=== PATIENT | female | born 1940 | race Caucasian/White ===

== ENCOUNTER 2017-11-11 21:28 | Inpatient (IN) | payer MEDICARE, BC ==
[~2017-11-11] VITALS: Ht 154.9 cm; Wt 60.3 kg
[2017-11-11] MEDS ORDERED: Morphine Sulfate 4mg/ml Inj IVP ONE (21:30)
[2017-11-11] MEDS ORDERED: Morphine Sulfate 4mg/ml Inj ONE (22:41)
[2017-11-11 22:47] LABS: BASOPHILS % (AUTO) 1.1 % (0.0-2.0); HEMATOCRIT 28.8 % (37.0-47.0); HEMOGLOBIN 9.3 G/DL (12.0-16.0); LYMPHOCYTES % (AUTO) 8.5 % (20.0-45.0); MEAN CORPUSCULAR VOLUME 99 FL (80-99); MONOCYTES % (AUTO) 9.1 % (1.0-10.0); NEUTROPHILS % (AUTO) 78.3 % (45.0-75.0); PLATELET COUNT 468 K/UL (150-450); RED CELL DISTRIBUTION WIDTH 15.4 % (11.6-14.8); WHITE BLOOD COUNT 11.5 K/UL (4.8-10.8)
[2017-11-11 22:48] LABS: ANION GAP 10 mmol/L (5-15); BLOOD UREA NITROGEN 25 mg/dL (7-18); CALCIUM 7.6 MG/DL (8.5-10.1); CARBON DIOXIDE 26 MMOL/L (21-32); CHLORIDE 100 MMOL/L (98-107); CREATININE 2.6 MG/DL (0.55-1.30); POTASSIUM 3.7 MMOL/L (3.5-5.1); SODIUM 136 MMOL/L (136-145)
[2017-11-11] MEDS ORDERED: TYLENOL EXTRA500 MG ORAL (22:48)
[2017-11-11] MEDS ORDERED: AMITRIPTYLINE100 MG ORAL (22:48)
[2017-11-11] MEDS ORDERED: AMLODIPINE BES2.5 MG ORAL (22:48)
[2017-11-11] MEDS ORDERED: ATORVASTATIN CA20 MG ORAL (22:49)
[2017-11-11] MEDS ORDERED: BUPROPION XL150 MG ORAL (22:49)
[2017-11-11] MEDS ORDERED: LEVOTHYROXINE125 MCG ORAL (22:49)
[2017-11-11] MEDS ORDERED: DIOVAN320 MG ORAL (22:49)
[2017-11-11] MEDS ORDERED: B COMPLEX WITH1 EAC2 ORAL (22:49)
[2017-11-11] MEDS ORDERED: ZOLPIDEM TARTRAT5 MG ORAL (22:49)
[2017-11-11] MEDS ORDERED: HUMALOG100 UNIT/4 SUBQ (22:49)
[2017-11-11] MEDS ORDERED: METOPROLOL TART25 MG ORAL (22:49)
[2017-11-11] MEDS ORDERED: MEGACE40 MG PO (22:49)
[2017-11-11] MEDS ORDERED: PRAVASTATIN SOD20 M1 ORAL (22:49)
[2017-11-11] MEDS ORDERED: TRAZODONE HCL150 MG ORAL (22:49)
[2017-11-11] MEDS ORDERED: PANTOPRAZOLE SO40 MG ORAL (22:49)
[2017-11-11] MEDS ORDERED: ZEMPLAR2 MCG ORAL (22:49)
[2017-11-11] MEDS ORDERED: RENAGEL800 MG ORAL (22:49)
[2017-11-11] MEDS ORDERED: CALCIUM ACETAT667 M1 PO (22:49)
[2017-11-11 23:00] LABS: ALANINE AMINOTRANSFERASE 8 U/L (12-78); ALBUMIN 2.3 G/DL (3.4-5.0); ALBUMIN/GLOBULIN RATIO 0.7 (1.0-2.7); ALKALINE PHOSPHATASE 118 U/L (46-116); ASPARTATE AMINO TRANSFERASE 26 U/L (15-37); BILIRUBIN,TOTAL 0.5 MG/DL (0.2-1.0); CREATINE KINASE 52 U/L (26-308)
[2017-11-12 00:53] VITALS: BP 112/52
--- NOTE | 2017-11-12 01:00 | Consultation ---
DATE OF CONSULTATION: 11/11/2017 CARDIOLOGY CONSULTATION CONSULTING PHYSICIAN: Philip Blair M.D. REQUESTING PHYSICIAN: Dakota Buckner M.D. REASON FOR CONSULTATION: Chest pain, palpitations and ventricular ectopy. HISTORY OF PRESENT ILLNESS: This is a 77-year-old white female, who has end-stage renal disease and is on hemodialysis three times a week. She is presently convalescing at an acute rehab ctr following surgery for a hip fracture sustained with a mechanical fall. She was transported to the emergency room from dialysis today after having some chest pain and palpitations with ventricular ectopy noted towards the end of her dialysis session. She was able to complete this session, approximately 2 liters of fluid was taken off during this hemodialysis and ultrafiltration session; that is somewhat more than her usual amount and she feels that is why her blood pressure is low. The patient also notes some relatively lower range of blood pressure over the past few months resulting in this slow discontinuation of some of her antihypertensive medications. Approximately 2 weeks ago, her metoprolol was discontinued. She is not clear whether she has had more palpitations since that time. The patient notes that her kidney failure has been progressive over almost over 25 years. 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 Her kidneys did suffer, never fully recovered. 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 She has a right chest wall PermCath and has been on dialysis for about a year now. She does have an AV fistula, but it has not matured and has not been used yet. PAST MEDICAL HISTORY: 1. Hypertension. 2. End-stage renal disease. 3. Depression. 4. Hypothyroidism. 5. Peptic ulcer disease. 6. Hyperlipidemia. ALLERGIES: Levaquin, , Naprosyn and all other nonsteroidal drugs and Lyrica. MEDICATIONS: Prior to admission are reviewed and reconciled. FAMILY HISTORY: Noncontributory. SOCIAL HISTORY: Negative for smoking, alcohol, or substance abuse. REVIEW OF SYSTEMS: A 10-point review of systems performed. All systems negative other than noted above. According to the patient's primary care physician; however, we were told that her troponin level is baseline at 0.4. PHYSICAL EXAMINATION: GENERAL: The patient is lying flat in no acute distress. VITAL SIGNS: Blood pressure 94/60, pulse 92, respiratory rate 18, and afebrile. HEENT: Normocephalic and atraumatic. Conjunctivae pink. Sclerae are anicteric. Oropharynx clear. Mucous membranes dry. NECK: Supple. Jugular venous pressure normal. Neck veins flat. Carotid upstrokes without delay. No thyromegaly. LUNGS: Clear. CARDIAC: Regular rhythm and rate. Normal S1 and S2 with a fourth heart sound. No chest wall tenderness. BREASTS: Without masses. ABDOMEN: Soft and nontender. EXTREMITIES: Good pulses. No edema. The right subclavian PermCath site is clean and dry. There is a palpable bruit over the left upper extremity AV fistula. LABORATORY AND DIAGNOSTIC DATA: EKG reveals sinus rhythm, possible septal infarction of indeterminate age and frequent premature ventricular contractions. White count 11.5 and hemoglobin 9.3. Potassium 3.7, BUN 25, and creatinine 2.6. Troponin is 0.061. Albumin is 2.3. Pro-natriuretic peptide is 8900. IMPRESSION: 1. Possible acute coronary syndrome. 2. Ventricular ectopy/arrhythmias. 3. Recent discontinuation of beta-emile, consider possible withdrawal symptoms. 4. End-stage renal disease, on hemodialysis. 5. Hypertensive heart disease, presently with low range of blood pressure, resolved. 6. Zkjcdhuz-bx-xzxefj protein-calorie malnutrition. 7. Acute and chronic diastolic congestive heart failure. PLAN: 1. Cardiac monitoring. 2. Antiplatelet therapy. 3. Fluid challenge with caution for persistent hypotension. 4. Restart low dose beta-emile. 5. DVT prophylaxis. 6. Echocardiogram. 7. Continue statin therapy and check lipid panel. 8. We will follow and make further recommendations based on clinical course. Philip Blair M.D. DR: SELINA JOB#: [id number] CC: CURTIS
[2017-11-12] MEDS: traMADol 50mg tab ORAL PRN ×3 (04:53→18:38)
--- NOTE | 2017-11-12 04:55 | Emergency Room Report ---
History of Present Illness General Chief Complaint: Chest Pain Source: Patient, EMS Present Illness HPI The patient presents via EMS. During dialysis today she was having chest pain. She was also tachycardic at that time and dropped her blood pressure to 80 systolic. According to her private physician she has quite a bit of calcified plaques however not significant occlusion in her coronary arteries. Paramedics performed an EKG that didn't show STEMI. The patient refused to take aspirin in the field. The pain resolved before paramedics arrived. She had frequent PVCs according to them. When she had dialysis 2 days ago she also had dry rapid heartbeat and low blood pressure. Her doctor states that her blood pressure dropped to 80 systolic then also. She didn't have chest pain at that time. The patient denies any fevers chills nausea vomiting diarrhea, melena. She rarely makes urine and denies dysuria. The chest pain today was pressure and rated 7/10. Her private physician states that her troponins usually are 0.4. There is a history of autonomic instability. H/O pancreatic cancer. Allergies: Coded Allergies: ESZOPICLONE (Verified Allergy, Unknown, 11/11/17) LEVOFLOXACIN (Verified Allergy, Unknown, 11/11/17) NAPROXEN (Verified Allergy, Unknown, 11/11/17) NSAIDS (NON-STEROIDAL ANTI-INFLAMMA (Verified Allergy, Unknown, 11/11/17) PREGABALIN (Verified Allergy, Unknown, 11/11/17) Patient History Past Medical History: see triage record Past Surgical History: other - shunts and vascath Social History: Denies: smoking, alcohol use, drug use Social History Narrative lives by herself Now: No Reviewed Nursing Documentation: PMH: Agreed; PSxH: Agreed Nursing Documentation-PMH Hx Hypertension: Yes - hypothyroid,othrostatic hypotension Hx Diabetes: Yes - neoplasm of pancreas, DM type II Hx Dialysis: Yes - glomerulopathy, stage 5 kidney disease Review of Systems All Other Systems: negative except mentioned in HPI Physical Exam Vital Signs Date Time Temp Pulse Resp B/P (MAP) Pulse Ox O2 Delivery O2 Flow Rate FiO2 11/11/17 21:16 97.2 96 16 112/52 97 Room Air 97.2 Sp02 EP Interpretation: reviewed, normal General Appearance: no apparent distress, GCS 15, Chronically Ill Head: normocephalic Eyes: bilateral eye normal inspection, bilateral eye PERRL ENT: moist mucus membranes Neck: supple Respiratory: lungs clear, normal breath sounds, other - vascath R Cardiovascular #1: regular rate, rhythm, other - some irregular beats Cardiovascular #2: 2+ radial (R) Gastrointestinal: normal inspection, normal bowel sounds, non tender, no mass, non-distended Musculoskeletal: back normal, gait/station normal, normal range of motion Neurologic: alert, oriented x3, grossly normal Psychiatric: mood/affect normal Skin: warm/dry, other - sallo Medical Decision Making Diagnostic Impression: Primary Impression: Chest pain Qualified Codes: R07.9 - Chest pain, unspecified Additional Impressions: End stage renal disease on dialysis Frequent PVCs Elevated troponin Anemia Qualified Codes: N18.6 - End stage renal disease; D63.1 - Anemia in chronic kidney disease; Z99.2 - Dependence on renal dialysis ER Course This dialysis patient presents with hypotension, chest pain and ectopy during dialysis. Differential includes acute myocardial infarction, acute coronary syndrome, electrolyte abnormality, pulmonary embolus, hypotension related chest pain amongst others. There are no infective symptoms at this time. Evaluation will be with EKG, chest x-ray and labs. The patient will be treated with morphine and also aspirin. EKG shows sinus rhythm with frequent PVCs without acute injury. Chest x-ray shows right-sided effusion which is small right permacath and no evidence of congestive failure. Labs are significant for elevated troponin, anemia and chronic renal disease. The patient is improved after the morphine. She was evaluated by her private physician in the emergency department. Dr. Blair came to evaluate the patient in the ED. The patient is admitted for cardiac observation and repeated troponins. Laboratory Tests Test 11/11/17 21:40 White Blood Count 11.5 K/UL (4.8-10.8) H Red Blood Count 2.90 M/UL (4.20-5.40) L Hemoglobin 9.3 G/DL (12.0-16.0) L Hematocrit 28.8 % (37.0-47.0) L Mean Corpuscular Volume 99 FL (80-99) Mean Corpuscular Hemoglobin 32.3 PG (27.0-31.0) H Mean Corpuscular Hemoglobin Concent 32.5 G/DL (32.0-36.0) Red Cell Distribution Width 15.4 % (11.6-14.8) H Platelet Count 468 K/UL (150-450) H Mean Platelet Volume 5.9 FL (6.5-10.1) L Neutrophils (%) (Auto) 78.3 % (45.0-75.0) H Lymphocytes (%) (Auto) 8.5 % (20.0-45.0) L Monocytes (%) (Auto) 9.1 % (1.0-10.0) Eosinophils (%) (Auto) 3.0 % (0.0-3.0) Basophils (%) (Auto) 1.1 % (0.0-2.0) Prothrombin Time 10.7 SEC (9.30-11.50) Prothrombin Time INR 1.0 (0.9-1.1) PTT 28 SEC (23-33) Sodium Level 136 MMOL/L (136-145) Potassium Level 3.7 MMOL/L (3.5-5.1) Chloride Level 100 MMOL/L (98-107) Carbon Dioxide Level 26 MMOL/L (21-32) Anion Gap 10 mmol/L (5-15) Blood Urea Nitrogen 25 mg/dL (7-18) H Creatinine 2.6 MG/DL (0.55-1.30) H Estimate Glomerular Filtration Rate mL/min (>60) Glucose Level 126 MG/DL (74-106) H Calcium Level 7.6 MG/DL (8.5-10.1) L Total Bilirubin 0.5 MG/DL (0.2-1.0) Aspartate Amino Transferase (AST) 26 U/L (15-37) Alanine Aminotransferase (ALT) 8 U/L (12-78) L Alkaline Phosphatase 118 U/L (46-116) H Total Creatine Kinase 52 U/L (26-308) Troponin I 0.061 ng/mL (0.000-0.056) Pro-B-Type Natriuretic Peptide 8903 pg/mL (0-125) H Total Protein 5.7 G/DL (6.4-8.2) L Albumin 2.3 G/DL (3.4-5.0) L Globulin 3.4 g/dL Albumin/Globulin Ratio 0.7 (1.0-2.7) L EKG Diagnostic Results Rate: normal Rhythm: NSR ST Segments: no acute changes ASA given to the pt in ED: Yes Rhythm Strip Diag. Results EP Interpretation: yes Rhythm: NSR, other - rate 95 frequent PVCs Chest X-Ray Diagnostic Results Chest X-Ray Diagnostic Results : Chest X-Ray Ordered: Yes # of Views/Limited/Complete: 1 View Indication: Chest Pain EP Interpretation: Yes Interpretation: no consolidation, no pneumothorax, other - vascath and R effusion = small Impression: Other Electronically Signed by: Electronically signed by Philip Jara MD Last Vital Signs Date Time Temp Pulse Resp B/P (MAP) Pulse Ox O2 Delivery O2 Flow Rate FiO2 11/12/17 01:00 82 11/11/17 22:19 16 Room Air 11/11/17 21:16 97.2 112/52 97 97.2 Status: improved Disposition: ADMITTED INPATIENT Condition: Serious Referrals: NON PHYSICIAN (PCP) Philip Jara M.D. November 12, 2017 04:55
[2017-11-12 06:09] LABS: BASOPHILS % (AUTO) 1.7 % (0.0-2.0); EOSINOPHILS % (AUTO) 3.8 % (0.0-3.0); HEMATOCRIT 27.3 % (37.0-47.0); HEMOGLOBIN 9.6 G/DL (12.0-16.0); LYMPHOCYTES % (AUTO) 6.8 % (20.0-45.0); MEAN CORPUSCULAR VOLUME 100 FL (80-99); NEUTROPHILS % (AUTO) 75.8 % (45.0-75.0); PLATELET COUNT 482 K/UL (150-450); RED BLOOD COUNT 2.74 M/UL (4.20-5.40); RED CELL DISTRIBUTION WIDTH 15.2 % (11.6-14.8); WHITE BLOOD COUNT 11.6 K/UL (4.8-10.8)
[2017-11-12] MEDS ORDERED: BuPROPion XL 150mg tab ORAL SCH (06:15)
[2017-11-12] MEDS ORDERED: Acetaminophen 500mg (ES) tab ORAL PRN (06:15)
[2017-11-12] MEDS ORDERED: Zolpidem 5mg tab ORAL PRN (06:15)
[2017-11-12] MEDS ORDERED: Levothyroxine 125mcg tab ORAL SCH ×2 (06:30→09:00)
[2017-11-12 06:35] LABS: ALANINE AMINOTRANSFERASE 14 U/L (12-78); ALBUMIN 2.4 G/DL (3.4-5.0); ALBUMIN/GLOBULIN RATIO 0.7 (1.0-2.7); ALKALINE PHOSPHATASE 125 U/L (46-116); ANION GAP 9 mmol/L (5-15); ASPARTATE AMINO TRANSFERASE 21 U/L (15-37); BILIRUBIN,TOTAL 0.5 MG/DL (0.2-1.0); BLOOD UREA NITROGEN 30 mg/dL (7-18); CALCIUM 7.6 MG/DL (8.5-10.1); CARBON DIOXIDE 27 MMOL/L (21-32); CHLORIDE 100 MMOL/L (98-107); CHOLESTEROL 98 MG/DL (< 200); CREATININE 3.1 MG/DL (0.55-1.30); HDL CHOLESTEROL 47 MG/DL (40-60); POTASSIUM 3.8 MMOL/L (3.5-5.1); SODIUM 136 MMOL/L (136-145); TRIGLYCERIDES 80 MG/DL (30-150)
[2017-11-12] MEDS ORDERED: Metoprolol 25mg tab ORAL SCH (09:00)
[2017-11-12] MEDS: Aspirin EC 81mg tab ORAL SCH (09:19)
[2017-11-12] MEDS: Renagel 400mg cap ORAL SCH ×3 (09:19→17:49)
[2017-11-12] MEDS: Calcium Acetate 667mg Tab ORAL SCH (09:19)
[2017-11-12] MEDS: Metoprolol Tartrate 12.5mg TAB ORAL SCH ×2 (09:19→20:49)
[2017-11-12] MEDS: Heparin 5000 units/ml inj SUBQ SCH ×2 (09:20→20:51)
--- NOTE | 2017-11-12 10:03 | Diagnostic Imaging Report ---
Indication: Dyspnea Comparison: None A single view chest radiograph was obtained. Findings: Surgical clips noted in the left axillary region. The heart is normal in size. The aorta is ectatic. Right permacath noted. Lungs are clear. Bones are moderately osteopenic. Moderate to severe degenerative arthrosis of both shoulders noted. IMPRESSION: No acute disease
[2017-11-12] MEDS: NovoLOG Insulin Flexpen SUBQ SCH ×3 (13:38→20:55)
--- NOTE | 2017-11-12 16:30 | History and Physical Report ---
DATE OF ADMISSION: 11/11/2017 HISTORY OF PRESENT ILLNESS: The patient is a 77-year-old female, who is presently a resident at an acute rehabilitation facility in [place] after having had surgery for hip fracture. She is two weeks postop and is undergoing physical therapy and rehabilitation. The patient is also a dialysis patient and yesterday after dialysis she had what she claims a panic attack. She felt that her pressure was low and she had PVCs. She was transferred to the [facility] for subsequent management and care. Overnight she has had workup which was negative. Hemoglobin is 9.6, white count 11,000, platelet count is normal. Her chemistries are notable for troponin 0.06, and 0.14. ProBNP is 8903. Creatinine 3.1. Coags are negative. Imaging studies are also been negative. HOME MEDICATIONS: Includes Wellbutrin, Elavil, Lipitor, trazodone, insulin sliding scale, Protonix, Lopressor, aspirin, amlodipine, PhosLo, Megace, Synthroid, Renagel, Tylenol, and Ambien as well as Ultram. ALLERGIES: To multiple medications including Levaquin, Naprosyn, NSAIDS, pregabalin, eszopiclone. REVIEW OF SYSTEMS: The patient denies any headaches, hematemesis, melena, hematochezia, or weight loss. PHYSICAL EXAMINATION: GENERAL: Reveals a 77-year-old female. HEENT: Unremarkable. CHEST: Clear breath sounds bilaterally. ABDOMEN: Soft. EXTREMITIES: There is no edema. NEUROLOGIC: Nonfocal. LABORATORY DATA: Laboratory testing discussed above notable for creatinine of 3.1, troponin 0.06. Albumin of 2.4. Normal CBC except for hemoglobin 9.6 and white count 11.6. IMPRESSION: 1. Status post recent open reduction and internal fixation for hip fracture. 2. End-stage renal disease on dialysis. 3. Cardiac arrhythmias. 4. Diabetes mellitus. 5. Malnutrition. DISCUSSION: Continue cardiac monitoring. Continue antiplatelet therapy. She may need extra fluids, will resume low-dose beta emile. We will follow carefully. Await cardiac followup. May discharge back to facility if Cardiology clears the patient. Dakota Buckner M.D. DR: Ricky JOB#: [id number] CC:
--- NOTE | 2017-11-12 16:35 | Cardiology Report ---
APPROVED REPORT EXAM: Two-dimensional and M-mode echocardiogram with Doppler and color Doppler. INDICATION Acute UT M-Mode DIMENSIONS IVSd1.0 (0.7-1.1cm)Left Atrium (MM)4.5 (1.6-4.0cm) LVDd4.8 (3.5-5.6cm)Aortic Root3.7 (2.0-3.7cm) PWd1.9 (0.7-1.1cm)Aortic Cusp Exc.1.5 (1.5-2.0cm) IVSs1.3 cm LVDs2.5 (2.5-4.0cm) PWs2.3 cm Normal left ventricular chamber size, hyperdynamic systolic function and wall motion. Left ventricular ejection fraction estimated to be 70-75 %. Moderate left ventricular hypertrophy by 2-D. No evidence of pericardial effusion. Left and right atrial sizes at upper limits of normal. Right ventricular chamber size is within normal limits. Moderate focal aortic valve sclerosis with mildly reduced cusp excursion. Heavily calcified anterior mitral valve leaflet tip with normal excursion. Significant mitral annulus and aortic root calcification. Pulmonic valve not well visualized. Normal tricuspid valve structure. IVC at normal size with physiologic collapse. A color flow and spectral Doppler study was performed and revealed: Trace aortic regurgitation. Peak aortic valve gradient of 20 mm Hg and a mean of 12 mmHg. Aortic valve area 1.4 cm2 calculated by continuity equation suggestive of mild aortic stenosis.. Mild mitral regurgitation. Mitral diastolic velocities suggest reduced left ventricular relaxation c/w mild LV diastolic dysfunction (Grade I). Mild tricuspid regurgitation. Tricuspid systolic velocities suggests peak right ventricular systolic pressure of 38 mmHg, consistent with mild pulmonary hypertension. Pulmonic regurgitation present.
--- NOTE | 2017-11-12 16:45 | Cardiology Report ---
APPROVED REPORT EKG Measurement Heart [id number] Sinus rhythm with frequent premature ventricular complexes Cannot rule out Anterior infarct, age undetermined Prolonged QT Abnormal ECG
[2017-11-12 20:00] VITALS: BP 114/63
[2017-11-12] MEDS: BuPROPion XL 150mg tab ORAL SCH (20:49)
[2017-11-12] MEDS: Zolpidem 5mg tab ORAL PRN (20:51)
[2017-11-12] MEDS: TraZODone 50mg tab ORAL SCH (20:55)
[2017-11-12] MEDS ORDERED: Lexiscan 0.4mg/5ml syringe IV ONE (22:30)
--- NOTE | 2017-11-12 23:00 | Consultation ---
DATE OF CONSULTATION: 11/12/2017 CONSULTING PHYSICIAN: Albino Andrews M.D. REFERRING PHYSICIAN: Dakota Buckner M.D. REASON FOR CONSULTATION: 1. End-stage renal disease, on hemodialysis, Saturday, Saturday, and Saturday. 2. Hypotension. HISTORY OF PRESENT ILLNESS: The patient is a pleasant 77-year-old white female, who undergoes hemodialysis three times per week every Saturday, Saturday, and Saturday. She recently had a hip fracture repaired. The patient was sent to the emergency room yesterday after her hemodialysis session, which was cut short by 30 minutes due to hypotension, tachycardia, and chest pain. Cardiology was consulted and Dr. Philip Blair is evaluating the patient. The patient is feeling much better and chest pain has resolved. PAST MEDICAL HISTORY: 1. Hypertension. 2. End-stage renal disease, on hemodialysis. 3. Depression. 4. Hypothyroidism. 5. Peptic ulcer disease. 6. Hyperlipidemia. ALLERGIES: 1. Levaquin. 2. Naprosyn. 3. Lyrica. FAMILY HISTORY: Positive for hypertension. SOCIAL HISTORY: No current tobacco, alcohol, or illicit drug use. REVIEW OF SYSTEMS: NEUROLOGIC: The patient denies headache, change in vision, syncope, or presyncopal episodes. CARDIOVASCULAR: The patient was having chest pain and palpitations. PULMONARY: No difficulty breathing or productive cough or sputum. GASTROINTESTINAL/GENITOURINARY: No change in urinary or bowel habits. No nausea, vomiting, or diarrhea. ENDOCRINOLOGY: No night sweats, fevers, or chills. MUSCULOSKELETAL: The patient is feeling weak, tired, and fatigue. PHYSICAL EXAMINATION: GENERAL: The patient is awake, not otherwise in distress. VITAL SIGNS: Blood pressure 112/52, pulse 84, and temperature 97.2 degrees. HEENT: Extraocular muscles intact. No lymphadenopathy. Oropharyngeal mucosa appears dry. CARDIOVASCULAR: S1 and S2. No rubs or gallops. Regular rate. PULMONARY: Clear to auscultation bilaterally. No rales, rhonchi, or wheezes. ABDOMINAL: Nondistended and nontender. EXTREMITIES: No edema noted. LABORATORY DATA: Laboratories dated 11/12/2017, hemoglobin 9.6, white cell count 11.6, and platelet count 482. Sodium 136, potassium 3.8, creatinine 3.1, and bicarbonate 27. ASSESSMENT AND PLAN: 1. End-stage renal disease, on hemodialysis. Electrolytes and blood pressure currently stable. The patient will be continued on her regular Saturday, Saturday and Saturday schedule. The patient to undergo three hours of hemodialysis tomorrow with approximately 1.2 liters of ultrafiltration to avoid hypotension. 2. Acute coronary syndrome/chest pain. At this time, Cardiology evaluating ruling out patient for myocardial infarction, defer to their expertise. 3. Hypotension. Adjust medications as deemed appropriate, p.r.n. fluid bolus, continue antihypertensive medications as long as the patient is hemodynamically stable. 4. Anemia of chronic kidney disease. The patient to receive Epogen with hemodialysis for hemoglobin goal of 10. Albino Andrews MD DR: EDD JOB#: [id number] CC: CURTIS
[2017-11-13] VITALS: BP 113/65
--- NOTE | 2017-11-13 01:45 | Progress Note ---
DATE: 11/12/2017 CARDIOLOGY PROGRESS NOTE SUBJECTIVE: The patient has no chest pain. Less shortness of breath. No palpitations. The case was discussed with her primary physician by telephone, who suggests that the patient has had several months of progressive decline and episodes of chest pain in the past, but no recent ischemia "workup." OBJECTIVE: VITAL SIGNS: Blood pressure 114/63, pulse 76, respiratory rate 18. NECK: Supple. LUNGS: Clear. CARDIAC: Regular rhythm and rate. Normal S1, S2 with a fourth heart sound. ABDOMEN: Soft and nontender. EXTREMITIES: No edema. SKIN: Chest wall catheter site clean and dry. Palpable bruit over left upper extremity. LABORATORY AND DIAGNOSTIC DATA: Echocardiogram revealed normal ejection fraction, mild aortic valve stenosis and diastolic dysfunction, PA pressure 38, mild pulmonary hypertension. Troponin increased to 0.148. EKG revealed sinus rhythm, frequent PVCs, possible anterior infarction of indeterminate age, and prolonged QT. IMPRESSION: 1. Anginal syndrome and possible [id number] myocardial infarction. 2. End-stage renal disease, on hemodialysis. 3. History of ORIF of hip. 4. Nonsustained ventricular ectopy. 5. Acute on chronic diastolic congestive heart failure. PLAN: 1. Antiplatelet and anti-lipid therapy. 2. Beta-blockade. 3. Myocardial perfusion scan with pharmacologic stress. 4. Hemodialysis with ultrafiltration for volume management. 5. Titrate beta-emile dosing. Philip Blair M.D. DR: Nabeel JOB#: [id number] CC:
[2017-11-13 04:00] VITALS: BP 119/68
[2017-11-13] MEDS: NovoLOG Insulin Flexpen SUBQ SCH ×4 (06:25→21:00)
[2017-11-13] MEDS: Renagel 400mg cap ORAL SCH ×3 (06:25→16:43)
[2017-11-13] MEDS ORDERED: Levothyroxine 125mcg tab ORAL SCH (06:30)
[2017-11-13 08:00] VITALS: BP 116/61
[2017-11-13] MEDS: Aspirin EC 81mg tab ORAL SCH (08:31)
[2017-11-13] MEDS: Calcium Acetate 667mg Tab ORAL SCH (08:31)
--- NOTE | 2017-11-13 08:32 | Pulmonology Progress Note ---
Assessment/Plan Assessment/Plan 1. Status post recent open reduction and internal fixation for hip fracture. 2. End-stage renal disease on dialysis. 3. Cardiac arrhythmias. 4. Diabetes mellitus. 5. Malnutrition. DISCUSSION: Continue cardiac monitoring. Continue antiplatelet therapy. On low-dose beta emile. Await cardiac followup and stress test HD today Discussed with renal and cardiology Subjective Interval Events: Better; for stres test today Constitutional: Reports: no symptoms HEENT: Repors: no symptoms Respiratory: Reports: no symptoms Cardiovascular: Reports: no symptoms Gastrointestinal/Abdominal: Reports: no symptoms Allergies: Coded Allergies: ESZOPICLONE (Verified Allergy, Unknown, 11/11/17) LEVOFLOXACIN (Verified Allergy, Unknown, 11/11/17) NAPROXEN (Verified Allergy, Unknown, 11/11/17) NSAIDS (NON-STEROIDAL ANTI-INFLAMMA (Verified Allergy, Unknown, 11/11/17) PREGABALIN (Verified Allergy, Unknown, 11/11/17) Objective Last 24 Hour Vital Signs Date Time Temp Pulse Resp B/P (MAP) Pulse Ox O2 Delivery O2 Flow Rate FiO2 11/13/17 04:00 97.1 74 18 119/68 97 Room Air 97.1 11/13/17 04:00 74 11/13/17 00:00 97.2 72 16 113/65 96 Room Air 97.2 11/13/17 00:00 72 11/12/17 20:49 76 114/63 11/12/17 20:00 97.6 76 18 114/63 97 Room Air 97.6 11/12/17 20:00 75 11/12/17 16:00 74 11/12/17 12:08 97.2 11/12/17 12:00 77 11/12/17 11:09 97.2 11/12/17 10:59 97.2 11/12/17 09:19 84 112/52 11/12/17 09:19 84 112/52 Intake and Output 11/12/17 11/13/17 19:00 07:00 Intake Total 480 ml 200 ml Balance 480 ml 200 ml Intake Oral 480 ml 200 ml # Voids 1 # Bowel Movements 1 General Appearance: no acute distress HEENT: normocephalic Respiratory/Chest: chest wall non-tender, lungs clear Cardiovascular: normal peripheral pulses, normal rate Laboratory Tests 11/13/17 07:50: Sodium Level [Pending], Potassium Level [Pending], Chloride Level [Pending], Carbon Dioxide Level [Pending], Blood Urea Nitrogen [Pending], Creatinine [ Pending], Estimat Glomerular Filtration Rate [Pending], Glucose Level [Pending] , Calcium Level [Pending], Troponin I [Pending] Current Medications Medications (Trade) Dose Ordered Sig/Frances Route PRN Reason Start Time Stop Time Status Last Admin Dose Admin Acetaminophen (Tylenol) 650 mg Q4H PRN ORAL Mild Pain/Temp > 100.5 11/12/17 00:00 12/12/17 00:00 Acetaminophen (Tylenol) 1,000 mg Q6H PRN ORAL Mild Pain/Temp > 100.5 11/12/17 06:15 12/12/17 06:14 Amlodipine Besylate (Norvasc) 2.5 mg DAILY ORAL 11/12/17 09:00 12/12/17 08:59 11/12/17 09:19 Aspirin (Ecotrin) 81 mg DAILY ORAL 11/12/17 09:00 12/12/17 08:59 11/12/17 09:19 Atorvastatin Calcium (Lipitor) 10 mg BEDTIME ORAL 11/12/17 21:00 12/12/17 20:59 11/12/17 20:48 Bupropion HCl (Wellbutrin XL) 150 mg BEDTIME ORAL 11/12/17 21:00 12/12/17 20:59 11/12/17 20:49 Calcium Acetate (Phoslo) 667 mg DAILY ORAL 11/12/17 09:00 12/12/17 08:59 11/12/17 09:19 Dextrose (Dextrose 50%) 25 ml STAT PRN IV Hypoglycemia 11/12/17 08:30 12/12/17 08:29 Dextrose (Dextrose 50%) 50 ml STAT PRN IV Hypoglycemia 11/12/17 08:30 12/12/17 08:29 Epoetin Maninder (Procrit (for ESRD on dialysis)) 7,000 units SAT-SAT-SAT SUBQ 11/13/17 21:00 12/13/17 20:59 Heparin Sodium (Porcine) (Heparin 5000 units/ml) 5,000 units EVERY 12 HOURS SUBQ 11/12/17 09:00 12/12/17 08:59 11/12/17 20:51 Insulin Aspart (NovoLOG) BEFORE MEALS AND HS SUBQ 11/12/17 11:30 12/12/17 11:29 11/12/17 13:38 Levothyroxine Sodium (Synthroid) 150 mcg DAILY@0630 ORAL 11/13/17 06:30 12/13/17 06:29 11/13/17 06:38 Megestrol Acetate (Megace) 40 mg DAILY ORAL 11/12/17 09:00 11/17/17 08:59 11/12/17 09:19 Metoprolol Tartrate (Lopressor) 12.5 mg Q12HR ORAL 11/12/17 09:00 12/12/17 08:59 11/12/17 20:49 Pantoprazole (Protonix) 40 mg DAILY ORAL 11/12/17 09:00 12/12/17 08:59 11/12/17 09:19 Sevelamer HCl (Renagel) 800 mg BEFORE MEALS ORAL 11/12/17 06:30 12/12/17 06:29 11/13/17 06:25 Tramadol HCl (Ultram) 50 mg Q6H PRN ORAL mod-severe pain 11/12/17 03:30 11/19/17 03:29 11/12/17 18:38 Trazodone HCl (Desyrel) 50 mg QHS ORAL 11/12/17 21:00 12/12/17 20:59 11/12/17 20:55 Zolpidem Tartrate (Ambien) 5 mg HSPRN PRN ORAL Insomnia 11/12/17 03:30 11/19/17 03:29 11/12/17 20:51 Dakota Buckner MD November 13, 2017 08:32
[2017-11-13] MEDS: Heparin 5000 units/ml inj SUBQ SCH ×2 (08:33→21:34)
[2017-11-13] MEDS: Metoprolol Tartrate 12.5mg TAB ORAL SCH ×2 (08:36→21:33)
[2017-11-13 08:55] LABS: ANION GAP 12 mmol/L (5-15); BLOOD UREA NITROGEN 46 mg/dL (7-18); CALCIUM 7.5 MG/DL (8.5-10.1); CARBON DIOXIDE 26 MMOL/L (21-32); CHLORIDE 99 MMOL/L (98-107); CREATININE 4.2 MG/DL (0.55-1.30); POTASSIUM 4.7 MMOL/L (3.5-5.1); SODIUM 137 MMOL/L (136-145)
--- NOTE | 2017-11-13 09:01 | Nephrology Progress Note ---
Assessment/Plan Assessment/Plan 1. ESRD- patient to have HD today and maintain MWF - 1.2 L UF ordered 2. ACS-/Chest Pain- stress test today then HD afterwards 3. Status post recent open reduction and internal fixation for hip fracture. - per PCP mgmt 4. HTN- stable, montior on Lopressor Subjective Date patient seen: November 13, 2017 Time patient seen: 08:47 ROS Limited/Unobtainable: No Allergies: Coded Allergies: ESZOPICLONE (Verified Allergy, Unknown, 11/11/17) LEVOFLOXACIN (Verified Allergy, Unknown, 11/11/17) NAPROXEN (Verified Allergy, Unknown, 11/11/17) NSAIDS (NON-STEROIDAL ANTI-INFLAMMA (Verified Allergy, Unknown, 11/11/17) PREGABALIN (Verified Allergy, Unknown, 11/11/17) All Systems: reviewed and negative except above Subjective Patient feeling much better. CP and palpitations have resolved Objective Last 24 Hour Vital Signs Date Time Temp Pulse Resp B/P (MAP) Pulse Ox O2 Delivery O2 Flow Rate FiO2 11/13/17 08:00 97.7 73 21 116/61 97 Room Air 97.7 11/13/17 04:00 97.1 74 18 119/68 97 Room Air 97.1 11/13/17 04:00 74 11/13/17 00:00 97.2 72 16 113/65 96 Room Air 97.2 11/13/17 00:00 72 11/12/17 20:49 76 114/63 11/12/17 20:00 97.6 76 18 114/63 97 Room Air 97.6 11/12/17 20:00 75 11/12/17 16:00 74 11/12/17 12:08 97.2 11/12/17 12:00 77 11/12/17 11:09 97.2 11/12/17 10:59 97.2 11/12/17 09:19 84 112/52 11/12/17 09:19 84 112/52 Intake and Output 11/12/17 11/13/17 19:00 07:00 Intake Total 480 ml 200 ml Balance 480 ml 200 ml Intake Oral 480 ml 200 ml # Voids 1 # Bowel Movements 1 Laboratory Tests 11/13/17 07:50: Sodium Level [Pending], Potassium Level [Pending], Chloride Level [Pending], Carbon Dioxide Level [Pending], Blood Urea Nitrogen [Pending], Creatinine [ Pending], Estimat Glomerular Filtration Rate [Pending], Glucose Level [Pending] , Calcium Level [Pending], Troponin I [Pending] Height (Feet): 5 Height (Inches): 1.00 Weight (Pounds): 133 General Appearance: WD/WN, no apparent distress, alert EENT: PERRL/EOMI, normal ENT inspection Neck: non-tender, normal alignment Cardiovascular: normal rate, regular rhythm Respiratory/Chest: chest wall non-tender, lungs clear Abdomen: normal bowel sounds, non tender, soft Edema: no edema noted Arm (L), no edema noted Arm (R), no edema noted Leg (L), no edema noted Leg (R), no edema noted Pedal (L), no edema noted Pedal (R), no edema noted Generalized Albino Andrews M.D. November 13, 2017 09:01
[2017-11-13 11:56] VITALS: BP 121/64
[2017-11-13 16:00] VITALS: BP 118/64
[2017-11-13] MEDS ORDERED: LORazepam 1mg tab ORAL PRN (19:15)
[2017-11-13 20:34] VITALS: BP 131/65
[2017-11-13] MEDS ORDERED: Epogen (for ESRD on dialysis) SUBQ SCH (21:00)
[2017-11-13] MEDS: BuPROPion XL 150mg tab ORAL SCH (21:33)
[2017-11-13] MEDS: TraZODone 50mg tab ORAL SCH (21:33)
[2017-11-13] MEDS: Zolpidem 5mg tab ORAL PRN (21:34)
[2017-11-14 00:10] VITALS: BP 126/60
--- NOTE | 2017-11-14 03:30 | Progress Note ---
DATE: 11/13/2017 CARDIOLOGY PROGRESS NOTE SUBJECTIVE: The patient completed her myocardial perfusion scan with adenosine stress today, but final perfusion imaging results are still pending. She has no chest pain or shortness of breath. OBJECTIVE: VITAL SIGNS: Blood pressure 131/65, pulse 80, respirations 17, and oxygen saturation on room air 96%. Monitored rhythm, sinus with occasional premature ventricular contractions. LUNGS: Clear. CARDIAC: Regular rhythm and rate. Normal S1, S2 with a fourth heart sound. ABDOMEN: Soft and nontender. EXTREMITIES: No edema. IMPRESSION: 1. Status post open reduction and internal fixation for hip fracture. 2. Nonsustained ventricular ectopy. 3. Crescendo angina. 4. End-stage renal disease, on hemodialysis. 5. Hypertensive heart disease with controlled blood pressure. 6. Acute on chronic diastolic congestive heart failure, clinically compensated. PLAN: 1. Maintain anti-platelet and anti-lipid drugs as well as low dose beta-emile. 2. Monitor for low range blood pressure following dialysis and adjust therapy accordingly. 3. Await final results of myocardial perfusion scan. 4. Hemodialysis with ultrafiltration. 5. Discharge planning anticipated in the next 24 hours. 6. If significant reversible ischemia is noted, plans will be made for cardiac catheterization. Philip Blair M.D. DR: BLAKE JOB#: [id number] CC:
[2017-11-14 04:00] VITALS: BP 133/68
[2017-11-14] MEDS: Renagel 400mg cap ORAL SCH ×3 (05:31→17:04)
[2017-11-14] MEDS: NovoLOG Insulin Flexpen SUBQ SCH ×3 (06:30→16:30)
--- NOTE | 2017-11-14 07:57 | Physician Query ---
--------- THIS DOCUMENT IS A PERMANENT PART OF THE MEDICAL RECORD --------- PLEASE COMPLETE DOCUMENT BEFORE SIGNING Dear Dr. Blair Date: 11/14/2017 Clinical Programmer/CDS Name: Colleen Bowen Clinical Programmer/CDS Phone No.: Exercise your independent professional judgment when responding to the query. Questions asked do not imply a particular answer is desired or expected. We greatly appreciate your clarification on this issue. CLINICAL DOCUMENTATION STATES: Patient presented in ER with chest pain with pressure. Patient treated with Morphine, Aspirin, Metoprolol. Progress notes from 11/13/2017 Impression includes Anginal syndrome and possible non-ST elevation myocardial infarction. CLINICAL FINDINGS SHOW: Troponin levels since admission 11/11/2017: Troponin-0.061 (reference < 0.056) 11/12/2017: Troponin-0.148 ( reference <0.056) 11/13/2017: Troponin-0.099 ( reference <0.056) Please clarify the status of the diagnosis "non-ST elevation myocardial infarction" as documented in this patient who has high troponin and received Morphine, Aspirin, Metoprolol. PHYSICIAN RESPONSE: [ ] The above diagnosis was monitored, evaluated, and/or treated and is a confirmed diagnosis [ ] The above diagnosis was Ruled out [ ] The above diagnosis is still a likely, suspected, probable diagnosis [ ] Other, please specify: [ ] Clinically unable to determine Please also document in your Progress Notes and/or Discharge Summary and indicate if the condition was present on admission. CURTIS
[2017-11-14 08:00] VITALS: BP 121/62
--- NOTE | 2017-11-14 08:39 | Nephrology Progress Note ---
Assessment/Plan Assessment/Plan 1. ESRD- patient had HD yesterday. Stable. - Gregory discharged today. If not then will plan for HD Sat 2. ACS-/Chest Pain- resolved. Per cardiology management 3. Status post recent open reduction and internal fixation for hip fracture. - stable 4. HTN- stable, montior on Lopressor Subjective Date patient seen: November 14, 2017 Time patient seen: 08:31 Allergies: Coded Allergies: ESZOPICLONE (Verified Allergy, Unknown, 11/11/17) LEVOFLOXACIN (Verified Allergy, Unknown, 11/11/17) NAPROXEN (Verified Allergy, Unknown, 11/11/17) NSAIDS (NON-STEROIDAL ANTI-INFLAMMA (Verified Allergy, Unknown, 11/11/17) PREGABALIN (Verified Allergy, Unknown, 11/11/17) All Systems: reviewed and negative except above Subjective Patient feeling much better. CP resolved. DC greogry today. Had HD yesterday Objective Last 24 Hour Vital Signs Date Time Temp Pulse Resp B/P (MAP) Pulse Ox O2 Delivery O2 Flow Rate FiO2 11/14/17 04:00 97.3 85 16 133/68 96 Room Air 97.3 11/14/17 04:00 72 11/14/17 00:10 97.1 72 17 126/60 96 97.1 11/14/17 00:00 70 11/13/17 21:33 80 131/65 11/13/17 21:04 Room Air 11/13/17 21:02 Room Air 11/13/17 20:34 96.6 80 17 131/65 96 96.6 11/13/17 20:00 80 11/13/17 17:25 Room Air 11/13/17 16:00 97.1 81 20 118/64 97 97.1 11/13/17 16:00 83 11/13/17 12:00 78 11/13/17 11:56 97.7 77 20 121/64 96 97.7 Intake and Output 11/13/17 11/14/17 19:00 07:00 Intake Total 300 ml 360 ml Output Total 200 ml 1200 ml Balance 100 ml -840 ml Intake Oral 300 ml 360 ml Output Urine Total 200 ml Hemodialysis UF 1200 ml # Bowel Movements 1 Height (Feet): 5 Height (Inches): 1.00 Weight (Pounds): 133 General Appearance: WD/WN, no apparent distress EENT: normal ENT inspection, TMs normal Neck: non-tender, normal alignment Cardiovascular: normal rate, regular rhythm Respiratory/Chest: lungs clear, normal breath sounds Abdomen: normal bowel sounds, non tender Edema: no edema noted Arm (L), no edema noted Arm (R), no edema noted Leg (L), no edema noted Leg (R), no edema noted Pedal (L), no edema noted Pedal (R), no edema noted Generalized Albino Andrews M.D. November 14, 2017 08:39
[2017-11-14] MEDS: Metoprolol Tartrate 12.5mg TAB ORAL SCH (09:00)
[2017-11-14] MEDS: Calcium Acetate 667mg Tab ORAL SCH (09:01)
[2017-11-14] MEDS: Aspirin EC 81mg tab ORAL SCH (09:01)
[2017-11-14] MEDS: Heparin 5000 units/ml inj SUBQ SCH (09:02)
--- NOTE | 2017-11-14 09:59 | Diagnostic Imaging Report ---
Indication: chest pain Technique: The study was conducted under the supervision of a outside collector. lexiscan (regadenoson) infusion over 10 seconds followed by intravenous administration of 31.8 mCi of technetium 99m Myoview was performed. Three plane SPECT imaging of the heart was then performed. A resting study was performed as part of the one-day protocol with 10.3 mCi of technetium 99m myoview injected intravenously at that time. Three plane SPECT imaging of the heart was obtained. Comparison: None Clinical data: 1. Clinical response: Non ischemic 2. Electrocardiographic response: Non ischemic Findings: The myocardial perfusion scan demonstrates attenuation anterior wall. This is probably due to breast attenuation. No reversible segments to suggest ischemia identified. LVEF is 67%. IMPRESSION: No evidence of myocardial ischemia.
--- NOTE | 2017-11-14 10:01 | Pulmonology Progress Note ---
Assessment/Plan Assessment/Plan 1. Status post recent open reduction and internal fixation for hip fracture. 2. End-stage renal disease on dialysis. 3. Cardiac arrhythmias. 4. Diabetes mellitus. 5. Malnutrition. 6. No reversible ischemia on stress test. DISCUSSION: Continue cardiac monitoring. Continue antiplatelet therapy. On low-dose beta emile. S/p HD yesterday; no ischemia on stress test Discussed with renal and cardiology DC back to [place] [facility] Subjective Interval Events: Underwent HD yesterday; stress test negative Constitutional: Reports: no symptoms HEENT: Repors: no symptoms Respiratory: Reports: no symptoms Cardiovascular: Reports: no symptoms Gastrointestinal/Abdominal: Reports: no symptoms Genitourinary: Reports: no symptoms Allergies: Coded Allergies: ESZOPICLONE (Verified Allergy, Unknown, 11/11/17) LEVOFLOXACIN (Verified Allergy, Unknown, 11/11/17) NAPROXEN (Verified Allergy, Unknown, 11/11/17) NSAIDS (NON-STEROIDAL ANTI-INFLAMMA (Verified Allergy, Unknown, 11/11/17) PREGABALIN (Verified Allergy, Unknown, 11/11/17) Objective Last 24 Hour Vital Signs Date Time Temp Pulse Resp B/P (MAP) Pulse Ox O2 Delivery O2 Flow Rate FiO2 11/14/17 09:00 77 121/62 11/14/17 09:00 77 121/62 11/14/17 04:00 97.3 85 16 133/68 96 Room Air 97.3 11/14/17 04:00 72 11/14/17 00:10 97.1 72 17 126/60 96 97.1 11/14/17 00:00 70 11/13/17 21:33 80 131/65 11/13/17 21:04 Room Air 11/13/17 21:02 Room Air 11/13/17 20:34 96.6 80 17 131/65 96 96.6 11/13/17 20:00 80 11/13/17 17:25 Room Air 11/13/17 16:00 97.1 81 20 118/64 97 97.1 11/13/17 16:00 83 11/13/17 12:00 78 11/13/17 11:56 97.7 77 20 121/64 96 97.7 Intake and Output 11/13/17 11/14/17 19:00 07:00 Intake Total 300 ml 360 ml Output Total 200 ml 1200 ml Balance 100 ml -840 ml Intake Oral 300 ml 360 ml Output Urine Total 200 ml Hemodialysis UF 1200 ml # Bowel Movements 1 General Appearance: no acute distress HEENT: normocephalic Respiratory/Chest: chest wall non-tender, lungs clear Cardiovascular: normal peripheral pulses, normal rate Abdomen: normal bowel sounds Current Medications Medications (Trade) Dose Ordered Sig/Frances Route PRN Reason Start Time Stop Time Status Last Admin Dose Admin Acetaminophen (Tylenol) 650 mg Q4H PRN ORAL Mild Pain/Temp > 100.5 11/12/17 00:00 12/12/17 00:00 Acetaminophen (Tylenol) 1,000 mg Q6H PRN ORAL Mild Pain/Temp > 100.5 11/12/17 06:15 12/12/17 06:14 Amlodipine Besylate (Norvasc) 2.5 mg DAILY ORAL 11/12/17 09:00 12/12/17 08:59 11/14/17 09:00 Aspirin (Ecotrin) 81 mg DAILY ORAL 11/12/17 09:00 12/12/17 08:59 11/14/17 09:01 Atorvastatin Calcium (Lipitor) 10 mg BEDTIME ORAL 11/12/17 21:00 12/12/17 20:59 11/13/17 21:34 Bupropion HCl (Wellbutrin XL) 150 mg BEDTIME ORAL 11/12/17 21:00 12/12/17 20:59 11/13/17 21:33 Calcium Acetate (Phoslo) 667 mg DAILY ORAL 11/12/17 09:00 12/12/17 08:59 11/14/17 09:01 Dextrose (Dextrose 50%) 25 ml STAT PRN IV Hypoglycemia 11/12/17 08:30 12/12/17 08:29 Dextrose (Dextrose 50%) 50 ml STAT PRN IV Hypoglycemia 11/12/17 08:30 12/12/17 08:29 Epoetin Maninder (Procrit (for ESRD on dialysis)) 7,000 units SAT-SAT-SAT SUBQ 11/13/17 21:00 12/13/17 20:59 Heparin Sodium (Porcine) (Heparin 5000 units/ml) 5,000 units EVERY 12 HOURS SUBQ 11/12/17 09:00 12/12/17 08:59 11/14/17 09:02 Insulin Aspart (NovoLOG) BEFORE MEALS AND HS SUBQ 11/12/17 11:30 12/12/17 11:29 11/12/17 13:38 Levothyroxine Sodium (Synthroid) 150 mcg DAILY@0630 ORAL 11/13/17 06:30 12/13/17 06:29 11/14/17 05:31 Lorazepam (Ativan) 1 mg QHS PRN ORAL For Anxiety 11/13/17 19:15 11/20/17 19:14 Megestrol Acetate (Megace) 40 mg DAILY ORAL 11/12/17 09:00 11/17/17 08:59 11/14/17 09:01 Metoprolol Tartrate (Lopressor) 12.5 mg Q12HR ORAL 11/12/17 09:00 12/12/17 08:59 11/14/17 09:00 Pantoprazole (Protonix) 40 mg DAILY ORAL 11/12/17 09:00 12/12/17 08:59 11/14/17 09:01 Sevelamer HCl (Renagel) 800 mg BEFORE MEALS ORAL 11/12/17 06:30 12/12/17 06:29 11/14/17 05:31 Tramadol HCl (Ultram) 50 mg Q6H PRN ORAL mod-severe pain 11/12/17 03:30 11/19/17 03:29 11/12/17 18:38 Trazodone HCl (Desyrel) 50 mg QHS ORAL 11/12/17 21:00 12/12/17 20:59 11/13/17 21:33 Zolpidem Tartrate (Ambien) 5 mg HSPRN PRN ORAL Insomnia 11/12/17 03:30 11/19/17 03:29 11/13/17 21:34 Dakota Buckner MD November 14, 2017 10:01
[2017-11-14 12:00] VITALS: BP 105/55
[2017-11-14 16:00] VITALS: BP 119/63
--- NOTE | 2017-11-14 20:30 | Progress Note ---
DATE: 11/14/2017 SUBJECTIVE: The patient has no chest pain or shortness of breath following hemodialysis and ultrafiltration last night. Myocardial perfusion scan was completed and negative for any Lexiscan-induced ischemia. Ejection fraction was normal. OBJECTIVE: VITAL SIGNS: Blood pressure 105/55, pulse 72, respirations 20, and afebrile. LUNGS: Clear. CARDIAC: Regular. Normal S1 and S2 with a fourth heart sound. ABDOMEN: Soft. EXTREMITIES: No edema. IMPRESSION: 1. Acute [id number] myocardial infarction. 2. Microvascular coronary artery disease. No evidence of flow-limiting coronary artery disease by myocardial perfusion scan. 3. End-stage renal disease. 4. Nonsustained ventricular ectopy, controlled on beta-emile. 5. Acute on chronic diastolic congestive heart failure, now clinically compensated. PLAN: 1. Stable to resume rehabilitation for recent hip fracture and maintain anti-platelet and anti-lipid drugs as well as beta-emile therapy prison. 2. Hemodialysis and ultrafiltration for volume management. Philip Blair M.D. DR: BLAKE JOB#: [id number] CC:
--- NOTE | 2017-11-15 14:34 | Discharge Summary ---
Discharge Summary Discharge Summary Discharge Summary DATE OF ADMISSION: 11/11/2017 DATE OF DISCHARGE: 11/14/2017 CONSULTANTS: Dr. Philip Andrews BRIEF HOSPITAL COURSE: Patient is a 77-year-old female, with history of end-stage renal disease on hemodialysis, who is presently residing at an acute rehabilitation after having a hip surgery. She is 2 weeks postop and is undergoing physical therapy and rehabilitation. She was at the dialysis center and felt pressure and palpitations on the chest. She had lower range of blood pressure for the past months and metoprolol was recently discontinued. She was transported to [facility]. She has medical history significant for hypertension, end-stage renal disease, depression, hypothyroidism, peptic ulcer disease, and hyperlipidemia. On evaluation at ED, troponin was elevated to 0.061, pro BNP 8903, albumin 2.3. EKG was in sinus rhythm with possible septal infarction of indeterminate age and frequent PVCs. She was admitted for evaluation of possible acute coronary syndrome. She was given aspirin and Lipitor. She was resumed on metoprolol tartrate 12.5 every 12 hours. TSH was 7, levothyroxine was increased to 150 g daily. She was continued on his inpatient hemodialysis. Echocardiogram showed EF 70-75%, trace aortic regurgitation, mild mitral regurgitation, mild pulmonary hypertension. She underwent Lexiscan stress test. Myocardial perfusion scan demonstrated attenuation on the anterior wall. There was no reversible segments to suggest ischemia. Ejection fraction was normal. She was eventually cleared for discharge back to acute rehabilitation. FINAL DIAGNOSES: Acute non-ST elevated AL Microvascular coronary artery disease End-stage renal disease on hemodialysis Nonsustained ventricular ectopy Acute on chronic diastolic congestive heart failure Diabetes mellitus Moderate to severe protein calorie malnutrition s/p recent ORIF for hip fracture Hypertensive heart disease DISPOSITION: Patient was discharged back to Acute Rehab. DISCHARGE MEDICATIONS: Refer to Discharge Medication List. I have been assigned to dictate discharge summary on this account, and I was not involved in the patient's management. Estrella Lemus NP November 15, 2017 14:34
== END 2017-11-14 19:29 | disposition short-term general hospital (02) | DRG 280 ==
LOC: EDBD 21:28 → EMR 21:35 → 2E 22:07 → EDBEDREQ 23:09 → 2E 11-13 23:33
PROC: 5A1D70Z Performance of Urinary Filtration, Intermittent, Less than 6 Hours Per Day (ICD-10-PCS; principal; 2017-11-13)
DX: I21.4 Non-ST elevation (NSTEMI) myocardial infarction (principal); N18.6 End stage renal disease; I50.33 Acute on chronic diastolic (congestive) heart failure; E43 Unspecified severe protein-calorie malnutrition; I13.2 Hypertensive heart and chronic kidney disease with heart failure and with stage 5 chronic kidney disease, or end stage renal disease; Z99.2 Dependence on renal dialysis; I25.10 Atherosclerotic heart disease of native coronary artery without angina pectoris; E11.22 Type 2 diabetes mellitus with diabetic chronic kidney disease; F32.9 Major depressive disorder, single episode, unspecified; E03.9 Hypothyroidism, unspecified; E78.5 Hyperlipidemia, unspecified; S72.009D Fracture of unspecified part of neck of unspecified femur, subsequent encounter for closed fracture with routine healing; I34.0 Nonrheumatic mitral (valve) insufficiency; I27.20 Pulmonary hypertension, unspecified; I49.3 Ventricular premature depolarization; Z88.6 Allergy status to analgesic agent; Z88.1 Allergy status to other antibiotic agents; Z88.8 Allergy status to other drugs, medicaments and biological substances
CPT/HCPCS: 36415; 71045; 78452; 80048; 80053; 80061; 82550; 82962; 83880; 84443; 84484; 85025; 85610; 85730; 93005; 93017; 93306; 99285; J1815; J2405; J2785

== ENCOUNTER 2018-05-14 17:42 | Inpatient (IN) | payer MEDICARE, BC ==
[~2018-05-14] VITALS: Ht 162.6 cm; Wt 64.6 kg
[~2018-05-14 17:42] MED LIST: AMITRIPTYLINE100 MG ORAL; AMLODIPINE BES2.5 MG ORAL; ATORVASTATIN CA20 MG ORAL; B COMPLEX WITH1 EAC2 ORAL; BUPROPION XL150 MG ORAL; CALCIUM ACETAT667 M1 PO; DIOVAN320 MG ORAL; HUMALOG100 UNIT/4 SUBQ; LEVOTHYROXINE125 MCG ORAL; MEGACE40 MG PO; METOPROLOL TART25 MG ORAL; PANTOPRAZOLE SO40 MG ORAL; PRAVASTATIN SOD20 M1 ORAL; RENAGEL800 MG ORAL; TRAZODONE HCL150 MG ORAL; TYLENOL EXTRA500 MG ORAL; ZEMPLAR2 MCG ORAL; ZOLPIDEM TARTRAT5 MG ORAL
[2018-05-14] MEDS ORDERED: dilTIAZem HCl 25mg/5ml Inj IVP ONE (18:00)
[2018-05-14] MEDS ORDERED: Sodium Chloride 500ML 500 ML IV ONE (18:00)
[2018-05-14] MEDS ORDERED: [UNRECOGNIZED DRUG - OTHER] PO (18:28)
[2018-05-14] MEDS ORDERED: AVAPRO300 MG ORAL (18:29)
[2018-05-14] MEDS ORDERED: MELATONIN3 MG ORAL (18:32)
[2018-05-14] MEDS ORDERED: CREON DR 24,001 EACH PO (18:32)
--- NOTE | 2018-05-14 18:32 | Emergency Room Report ---
History of Present Illness General Chief Complaint: Chest Pain Source: Patient, Medical Record, EMS Present Illness HPI This patient is brought in from dialysis. She states that she had been getting about 3 L of fluid taken off the past few dialysis sessions. She states this was because she was having some swelling in her face and upper extremities. She states that at the end of dialysis today she started feeling very poorly. She states she had chest pressure and tightness. She felt weak and ill. She states she is feeling better now. She denies recent illness. She states that prior to dialysis today she was in her normal state of health. She denies fever or chills. She has no other complaints. Allergies: Coded Allergies: ESZOPICLONE (Verified Allergy, Unknown, 11/11/17) LEVOFLOXACIN (Verified Allergy, Unknown, 11/11/17) NAPROXEN (Verified Allergy, Unknown, 11/11/17) NSAIDS (NON-STEROIDAL ANTI-INFLAMMA (Verified Allergy, Unknown, 11/11/17) PREGABALIN (Verified Allergy, Unknown, 11/11/17) Patient History Past Medical History: see triage record, ulcer, GERD, GI bleed, renal disease, dialysis, other - pancreatic ca Social History: Denies: smoking, alcohol use, drug use Reviewed Nursing Documentation: PMH: Agreed; PSxH: Agreed Nursing Documentation-PMH Past Medical History: No History, Except For Hx Hypertension: Yes - hypothyroid,othrostatic hypotension Hx Diabetes: Yes - neoplasm of pancreas, DM type II Hx Dialysis: Yes - glomerulopathy, stage 5 kidney disease Review of Systems All Other Systems: negative except mentioned in HPI Physical Exam Vital Signs Date Time Temp Pulse Resp B/P (MAP) Pulse Ox O2 Delivery O2 Flow Rate FiO2 05/14/18 17:42 98.6 95 18 86/58 98 Room Air Sp02 EP Interpretation: reviewed, normal General Appearance: no apparent distress, alert, GCS 15, non-toxic Head: normocephalic, atraumatic Eyes: bilateral eye normal inspection, bilateral eye PERRL ENT: hearing grossly normal, normal pharynx, no angioedema, normal voice Neck: full range of motion, supple/symm/no masses Respiratory: chest non-tender, lungs clear, normal breath sounds, no respiratory distress, no retraction, no accessory muscle use, speaking full sentences, other - Dialysis cather on R. chest in place. Cardiovascular #1: no edema, tachycardia, irregularly irregular Gastrointestinal: normal bowel sounds, non tender, soft, non-distended, no guarding, no rebound Rectal: deferred Musculoskeletal: back normal, gait/station normal, normal range of motion, non- tender, swelling - L. hand and lower arm w/ clear swelling, non-pitting Neurologic: alert, oriented x3, responsive, motor strength/tone normal, sensory intact, speech normal Psychiatric: judgement/insight normal, memory normal, mood/affect normal, no suicidal/homicidal ideation Skin: normal color, no rash, warm/dry, well hydrated Medical Decision Making Diagnostic Impression: Primary Impression: Chest pain Additional Impressions: Atrial fibrillation with rapid ventricular response Pneumonia Elevated troponin ER Course This patient presented with chest pain and was found to have A. fib with RVR. I suspect the patient had too much fluid taken off at dialysis. She also has findings on chest x-ray that could be an early pneumonia versus some fluid. As a precaution, I did give the patient Rocephin IV. I also gave the patient 500 mL of normal saline. She was given 10 mg IV diltiazem with better rate control of her atrial fibrillation. The chest x-ray was of poor quality. The patient had an indeterminate troponin. Likely this is a demand ischemia. This patient is admitted for further monitoring, evaluation and treatment. Laboratory Tests Test 05/14/18 18:16 White Blood Count 13.3 K/UL (4.8-10.8) H Red Blood Count 3.35 M/UL (4.20-5.40) L Hemoglobin 11.2 G/DL (12.0-16.0) L Hematocrit 33.2 % (37.0-47.0) L Mean Corpuscular Volume 99 FL (80-99) Mean Corpuscular Hemoglobin 33.5 PG (27.0-31.0) H Mean Corpuscular Hemoglobin Concent 33.8 G/DL (32.0-36.0) Red Cell Distribution Width 14.6 % (11.6-14.8) Platelet Count 315 K/UL (150-450) Mean Platelet Volume 7.8 FL (6.5-10.1) Neutrophils (%) (Auto) 69.3 % (45.0-75.0) Lymphocytes (%) (Auto) 12.4 % (20.0-45.0) L Monocytes (%) (Auto) 15.4 % (1.0-10.0) H Eosinophils (%) (Auto) 1.4 % (0.0-3.0) Basophils (%) (Auto) 1.6 % (0.0-2.0) Prothrombin Time 10.2 SEC (9.30-11.50) Prothrombin Time INR 1.0 (0.9-1.1) PTT 22 SEC (23-33) L Sodium Level 131 MMOL/L (136-145) L Potassium Level 3.9 MMOL/L (3.5-5.1) Chloride Level 92 MMOL/L (98-107) L Carbon Dioxide Level 25 MMOL/L (21-32) Anion Gap 14 mmol/L (5-15) Blood Urea Nitrogen 37 mg/dL (7-18) H Creatinine 2.7 MG/DL (0.55-1.30) H Estimate Glomerular Filtration Rate mL/min (>60) Glucose Level 218 MG/DL (74-106) H Calcium Level 9.6 MG/DL (8.5-10.1) Total Bilirubin 0.6 MG/DL (0.2-1.0) Aspartate Amino Transferase (AST) 21 U/L (15-37) Alanine Aminotransferase (ALT) 15 U/L (12-78) Alkaline Phosphatase 142 U/L (46-116) H Total Creatine Kinase 56 U/L (26-308) Creatine Kinase MB 5.0 NG/ML (0.0-3.6) H Creatine Kinase MB Relative Index 8.9 Troponin I 0.080 ng/mL (0.000-0.056) Total Protein 7.7 G/DL (6.4-8.2) Albumin 3.1 G/DL (3.4-5.0) L Globulin 4.6 g/dL Albumin/Globulin Ratio 0.7 (1.0-2.7) L EKG Diagnostic Results Rate: tachycardiac Rhythm: other - A.fib w/ RVR ST Segments: other - NSST findings Rhythm Strip Diag. Results EP Interpretation: yes Rate: 140's Rhythm: other - A.fib Chest X-Ray Diagnostic Results Chest X-Ray Diagnostic Results : Chest X-Ray Ordered: Yes # of Views/Limited/Complete: 1 View Indication: Chest Pain EP Interpretation: Yes Interpretation: no pneumothorax, other - RLL opacity Impression: Other - See above Electronically Signed by: Candelario Last Vital Signs Date Time Temp Pulse Resp B/P (MAP) Pulse Ox O2 Delivery O2 Flow Rate FiO2 05/14/18 18:17 132 116/90 05/14/18 17:42 98.6 18 98 Room Air Disposition: ADMITTED INPATIENT Condition: Serious Referrals: NON PHYSICIAN (PCP) Heidi Delgado DO May 14, 2018 18:32
[2018-05-14 18:34] VITALS: BP 110/62
[2018-05-14 18:35] LABS: BASOPHILS % (AUTO) 1.6 % (0.0-2.0); EOSINOPHILS % (AUTO) 1.4 % (0.0-3.0); HEMATOCRIT 33.2 % (37.0-47.0); HEMOGLOBIN 11.2 G/DL (12.0-16.0); LYMPHOCYTES % (AUTO) 12.4 % (20.0-45.0); MEAN CORPUSCULAR VOLUME 99 FL (80-99); MONOCYTES % (AUTO) 15.4 % (1.0-10.0); NEUTROPHILS % (AUTO) 69.3 % (45.0-75.0); PLATELET COUNT 315 K/UL (150-450); RED BLOOD COUNT 3.35 M/UL (4.20-5.40); RED CELL DISTRIBUTION WIDTH 14.6 % (11.6-14.8); WHITE BLOOD COUNT 13.3 K/UL (4.8-10.8)
[2018-05-14] MEDS ORDERED: ZOFRAN ODT8 MG ORAL (18:35)
[2018-05-14] MEDS ORDERED: MIRALAX17 G2 ORAL (18:35)
[2018-05-14] MEDS ORDERED: ZANTAC150 MG ORAL (18:35)
[2018-05-14] MEDS ORDERED: FLONASE ALLERG9.9 ML NS (18:39)
[2018-05-14 18:48] LABS: ANION GAP 14 mmol/L (5-15); BLOOD UREA NITROGEN 37 mg/dL (7-18); CALCIUM 9.6 MG/DL (8.5-10.1); CARBON DIOXIDE 25 MMOL/L (21-32); CHLORIDE 92 MMOL/L (98-107); CREATININE 2.7 MG/DL (0.55-1.30); POTASSIUM 3.9 MMOL/L (3.5-5.1); SODIUM 131 MMOL/L (136-145)
[2018-05-14] MEDS ORDERED: DULCOLAX10 MG RC (18:52)
[2018-05-14] MEDS ORDERED: ACETAMINOPHEN325 M1 ORAL (18:52)
[2018-05-14 19:01] LABS: ALANINE AMINOTRANSFERASE 15 U/L (12-78); ALBUMIN 3.1 G/DL (3.4-5.0); ALBUMIN/GLOBULIN RATIO 0.7 (1.0-2.7); ALKALINE PHOSPHATASE 142 U/L (46-116); ASPARTATE AMINO TRANSFERASE 21 U/L (15-37); BILIRUBIN,TOTAL 0.6 MG/DL (0.2-1.0); CREATINE KINASE 56 U/L (26-308)
[2018-05-14] MEDS ORDERED: cefTRIAXone 1 GM in NS 55 ML IVPB ONE (19:15)
[2018-05-14] MEDS ORDERED: MECLIZINE HCL25 MG ORAL (19:24)
[2018-05-14] MEDS ORDERED: Albuterol/Ipratropium 3ml neb HHN PRN (20:00)
[2018-05-14] MEDS ORDERED: Morphine Sulfate 2mg/ml Inj IVP PRN (20:00)
[2018-05-14] MEDS ORDERED: dilTIAZem HCl 25mg/5ml Inj IV PRN (20:00)
[2018-05-14] MEDS ORDERED: Nitroglycerin Subl 0.4mg tab SL PRN (20:00)
[2018-05-14] MEDS ORDERED: Enalaprilat 2.5mg/2ml Inj IV PRN (20:00)
[2018-05-14] MEDS ORDERED: Miralax 17gm pkt ORAL PRN (20:00)
[2018-05-14 21:13] VITALS: BP 112/59
[2018-05-14] MEDS: Heparin 5000 units/ml inj SUBQ SCH (22:17)
[2018-05-15] VITALS: BP 132/65
[2018-05-15 04:00] VITALS: BP 123/80
[2018-05-15] MEDS: Levothyroxine 125mcg tab ORAL SCH (06:04)
[2018-05-15 08:00] VITALS: BP 115/62
[2018-05-15 08:00] LABS: BASOPHILS % (AUTO) 1.9 % (0.0-2.0); EOSINOPHILS % (AUTO) 0.8 % (0.0-3.0); HEMATOCRIT 29.8 % (37.0-47.0); HEMOGLOBIN 10.1 G/DL (12.0-16.0); LYMPHOCYTES % (AUTO) 20.4 % (20.0-45.0); MEAN CORPUSCULAR VOLUME 99 FL (80-99); MONOCYTES % (AUTO) 19.7 % (1.0-10.0); NEUTROPHILS % (AUTO) 57.1 % (45.0-75.0); PLATELET COUNT 338 K/UL (150-450); RED BLOOD COUNT 3.01 M/UL (4.20-5.40); RED CELL DISTRIBUTION WIDTH 14.7 % (11.6-14.8); WHITE BLOOD COUNT 9.1 K/UL (4.8-10.8)
[2018-05-15] MEDS: BuPROPion XL 150mg tab ORAL SCH (08:27)
[2018-05-15] MEDS: Heparin 5000 units/ml inj SUBQ SCH (08:29)
[2018-05-15 08:33] LABS: CHOLESTEROL 104 MG/DL (< 200); HDL CHOLESTEROL 51 MG/DL (40-60); TRIGLYCERIDES 85 MG/DL (30-150)
--- NOTE | 2018-05-15 09:24 | Consultation ---
Consult Note Consult Note This patient is brought in from dialysis. She states that she had been getting about 3 L of fluid taken off the past few dialysis sessions. She states this was because she was having some swelling in her face and upper extremities. She states that at the end of dialysis today she started feeling very poorly. She states she had chest pressure and tightness. She felt weak and ill. She states she is feeling better now. She denies recent illness. She states that prior to dialysis today she was in her normal state of health. She denies fever or chills. She has no other complaints. Coded Allergies: ESZOPICLONE (Verified Allergy, Unknown, 11/11/17) LEVOFLOXACIN (Verified Allergy, Unknown, 11/11/17) NAPROXEN (Verified Allergy, Unknown, 11/11/17) NSAIDS (NON-STEROIDAL ANTI-INFLAMMA (Verified Allergy, Unknown, 11/11/17) PREGABALIN (Verified Allergy, Unknown, 11/11/17) Past Medical History: No History, Except For Hx Hypertension: Yes - hypothyroid,othrostatic hypotension Hx Diabetes: Yes - neoplasm of pancreas, DM type II Hx Dialysis: Yes - glomerulopathy, stage 5 kidney disease interviewed examined data reviewed discussed with RN . Assessment/Plan 1. Hypertension. 2. End-stage renal disease, on hemodialysis. has right Permacath 3. Depression. 4. Hypothyroidism. h/o Thyroid Ca 5. Peptic ulcer disease. 6. Hyperlipidemia. 7. h/o Bilateral breast cancer . s/p chemo and radiation 8. Atrial Fib HD in am renal diet asa lopressor nitrate per consultants / Licensing Registration Examiner Brendan Jessica MD May 15, 2018 09:24
--- NOTE | 2018-05-15 09:37 | Diagnostic Imaging Report ---
Indication: Chest pain Comparison: 11/11/2017 A single view chest radiograph was obtained. Findings: Some increased vascularity noted within the lungs. There is a right jugular permacath which appears in good position. The heart is normal in size. Surgical clips demonstrated in the left axilla. The bones are osteopenic. Severe arthrosis of both shoulders noted. IMPRESSION: Some increase of pulmonary vascularity and hyperemia of the lungs without overt pulmonary edema. Permacath
[2018-05-15] MEDS ORDERED: Metoprolol Tartrate 12.5mg TAB ORAL SCH (09:45)
[2018-05-15] MEDS: Aspirin Baby 81mg ORAL SCH (10:33)
[2018-05-15 10:37] LABS: ALANINE AMINOTRANSFERASE 23 U/L (12-78); ALBUMIN/GLOBULIN RATIO 0.7 (1.0-2.7); ALKALINE PHOSPHATASE 132 U/L (46-116); ANION GAP 14 mmol/L (5-15); ASPARTATE AMINO TRANSFERASE 25 U/L (15-37); BILIRUBIN,TOTAL 0.4 MG/DL (0.2-1.0); BLOOD UREA NITROGEN 55 mg/dL (7-18); CALCIUM 10.5 MG/DL (8.5-10.1); CARBON DIOXIDE 24 MMOL/L (21-32); CHLORIDE 93 MMOL/L (98-107); CREATININE 3.7 MG/DL (0.55-1.30); FERRITIN 980 NG/ML (8-388); PHOSPHORUS 5.2 MG/DL (2.5-4.9); POTASSIUM 4.3 MMOL/L (3.5-5.1); SODIUM 131 MMOL/L (136-145)
[2018-05-15] MEDS: Nitroglycerin Patch 0.4mg TDERMAL SCH (10:37)
--- NOTE | 2018-05-15 10:47 | History and Physical ---
History of Present Illness General Date patient seen: May 15, 2018 Reason for Hospitalization: Chest Pain Present Illness HPI 77 year old female with hx of ESRF on HD for two years, hypothyroid, brought in from dialysis center with CC of sudden onset of chest pain. She had chest pressure and tightness. she had been getting about 3 L of fluid taken off the past few dialysis sessions. She felt weak and ill. She states she is feeling better now. She denies recent illness. She had been in and out of afib. Currently she is sinus again. Allergies: Coded Allergies: ESZOPICLONE (Verified Allergy, Unknown, 11/11/17) LEVOFLOXACIN (Verified Allergy, Unknown, 11/11/17) NAPROXEN (Verified Allergy, Unknown, 11/11/17) NSAIDS (NON-STEROIDAL ANTI-INFLAMMA (Verified Allergy, Unknown, 11/11/17) PREGABALIN (Verified Allergy, Unknown, 11/11/17) Medication History Scheduled Atorvastatin Calcium* (Atorvastatin Calcium*), 20 MG ORAL BEDTIME, (Reported) Bupropion Xl* (Bupropion Xl*), 150 MG ORAL Q24H, (Reported) Fluticasone Propionate (Flonase Allergy Relief), 2 PUFFS NS BEDTIME, (Reported) Irbesartan* (Avapro*), 300 MG ORAL DAILY, (Reported) Levothyroxine Sodium* (Levothyroxine Sodium*), 250 MCG ORAL DAILY, (Reported) Lipase/Protease/Amylase (Creon Dr 24,000 Units Capsule), 2 EACH PO TID, ( Reported) Megestrol Acetate (Megestrol Acetate), 400 MG PO DAILY, (Reported) Metoprolol Tartrate* (Metoprolol Tartrate*), 25 MG ORAL BID, (Reported) Pantoprazole* (Pantoprazole*), 40 MG ORAL DAILY, (Reported) Sevelamer Hcl (Renagel), 2,400 MG ORAL THREE TIMES A DAY, (Reported) Vit B1 Mn/B2/B3/B5/B6/B12/C/Fa (B Complex With Vitamin C Tab), 1 TAB ORAL DAILY, (Reported) Scheduled PRN Acetaminophen* (Tylenol Extra Strength*), 1,000 MG ORAL Q8HR PRN for For Pain, ( Reported) Acetaminophen* (Acetaminophen 325MG Tablet*), 325 MG ORAL Q6H PRN for Mild Pain/ Temp > 100.5, (Reported) Bisacodyl (Dulcolax), Unknown Dose RC every 3 days PRN for Constipation, ( Reported) Meclizine Hcl* (Meclizine*), 25 MG ORAL Q8H PRN for for dizziness, (Reported) Melatonin (Melatonin), 6 MG ORAL BEDTIME PRN for CIRCADIAN RHYTHM , (Reported) Ondansetron Odt* (Zofran Odt*), 8 MG ORAL Q6H PRN for Nausea & Vomiting, ( Reported) Polyethylene Glycol 3350* (Miralax*), 17 GM ORAL BID PRN for Constipation, ( Reported) Ranitidine Hcl* (Zantac*), 150 MG ORAL Q6HR PRN for For Pain, (Reported) Discontinued Medications Amitriptyline HCl (Amitriptyline HCl), 25 MG ORAL BEDTIME, (Reported) Discontinued Reason: Therapy completed Amlodipine Besylate* (Amlodipine Besylate*), 2.5 MG ORAL DAILY, (Reported) Discontinued Reason: Therapy completed Calcium Acetate (Calcium Acetate), 667 MG PO, (Reported) Discontinued Reason: Therapy completed Insulin Lispro (Humalog), 0 SUBQ, (Reported) Discontinued Reason: Pt stopped taking med Megestrol Acetate (Megestrol Acetate), 40 MG PO DAILY, (Reported) Discontinued Reason: Prescription changed Trazodone* (Trazodone*), 50 MG ORAL BEDTIME, (Reported) Discontinued Reason: Therapy completed Valsartan (Diovan), 320 MG ORAL DAILY, (Reported) Discontinued Reason: Therapy completed Zolpidem Tartrate* (Zolpidem Tartrate*), 5 MG ORAL BEDTIME PRN for Insomnia, ( Reported) Discontinued Reason: Therapy completed Patient History Healthcare decision maker Resuscitation status Full Code Advanced Directive on File Past Medical/Surgical History Past Medical/Surgical History: (1) ESRF (end stage renal failure) (2) Acquired hypothyroidism (3) Asthma (4) Depression Review of Systems Constitutional: Reports: no symptoms Eye: Reports: no symptoms All Other Systems: negative except mentioned in HPI Physical Exam General Appearance: cachetic Lines, tubes and drains: peripheral HEENT: normocephalic, atraumatic Neck: non-tender, normal alignment Respiratory/Chest: chest wall non-tender, lungs clear Breasts: no masses Cardiovascular/Chest: normal peripheral pulses Abdomen: normal bowel sounds, non tender Genitourinary/Rectal: normal genital exam Extremities: normal range of motion Last 24 Hour Vital Signs Date Time Temp Pulse Resp B/P (MAP) Pulse Ox O2 Delivery O2 Flow Rate FiO2 05/15/18 08:00 79 05/15/18 08:00 97.4 80 18 115/62 (79) 95 05/15/18 04:00 97.0 130 18 123/80 (94) 93 05/15/18 04:00 93 05/15/18 03:21 130 123/80 05/15/18 00:00 97.9 80 20 132/65 (87) 100 05/14/18 21:23 81 05/14/18 21:13 98.1 80 18 112/59 (76) 98 05/14/18 21:11 Room Air 05/14/18 20:36 102 20 Room Air 21 05/14/18 20:35 96.4 104 14 110/62 99 Room Air 05/14/18 18:34 96.4 104 14 110/62 99 Room Air 05/14/18 18:17 132 116/90 05/14/18 18:00 99 17 Room Air 05/14/18 17:42 98.6 95 18 86/58 98 Room Air Intake and Output 05/14/18 05/15/18 19:00 07:00 Intake Total 360 ml Balance 360 ml Intake Oral 360 ml Laboratory Tests Test 05/14/18 18:16 05/15/18 07:40 White Blood Count 13.3 K/UL (4.8-10.8) H 9.1 K/UL (4.8-10.8) Red Blood Count 3.35 M/UL (4.20-5.40) L 3.01 M/UL (4.20-5.40) L Hemoglobin 11.2 G/DL (12.0-16.0) L 10.1 G/DL (12.0-16.0) L Hematocrit 33.2 % (37.0-47.0) L 29.8 % (37.0-47.0) L Mean Corpuscular Volume 99 FL (80-99) 99 FL (80-99) Mean Corpuscular Hemoglobin 33.5 PG (27.0-31.0) H 33.6 PG (27.0-31.0) H Mean Corpuscular Hemoglobin Concent 33.8 G/DL (32.0-36.0) 33.9 G/DL (32.0-36.0) Red Cell Distribution Width 14.6 % (11.6-14.8) 14.7 % (11.6-14.8) Platelet Count 315 K/UL (150-450) 338 K/UL (150-450) Mean Platelet Volume 7.8 FL (6.5-10.1) 7.6 FL (6.5-10.1) Neutrophils (%) (Auto) 69.3 % (45.0-75.0) 57.1 % (45.0-75.0) Lymphocytes (%) (Auto) 12.4 % (20.0-45.0) L 20.4 % (20.0-45.0) Monocytes (%) (Auto) 15.4 % (1.0-10.0) H 19.7 % (1.0-10.0) H Eosinophils (%) (Auto) 1.4 % (0.0-3.0) 0.8 % (0.0-3.0) Basophils (%) (Auto) 1.6 % (0.0-2.0) 1.9 % (0.0-2.0) Prothrombin Time 10.2 SEC (9.30-11.50) 10.4 SEC (9.30-11.50) Prothromb Time International Ratio 1.0 (0.9-1.1) 1.0 (0.9-1.1) Activated Partial Thromboplast Time 22 SEC (23-33) L 27 SEC (23-33) Sodium Level 131 MMOL/L (136-145) L 131 MMOL/L (136-145) L Potassium Level 3.9 MMOL/L (3.5-5.1) 4.3 MMOL/L (3.5-5.1) Chloride Level 92 MMOL/L (98-107) L 93 MMOL/L (98-107) L Carbon Dioxide Level 25 MMOL/L (21-32) 24 MMOL/L (21-32) Anion Gap 14 mmol/L (5-15) 14 mmol/L (5-15) Blood Urea Nitrogen 37 mg/dL (7-18) H 55 mg/dL (7-18) H Creatinine 2.7 MG/DL (0.55-1.30) H 3.7 MG/DL (0.55-1.30) H Estimat Glomerular Filtration Rate mL/min (>60) mL/min (>60) Glucose Level 218 MG/DL (74-106) H 145 MG/DL (74-106) H Calcium Level 9.6 MG/DL (8.5-10.1) 10.5 MG/DL (8.5-10.1) H Total Bilirubin 0.6 MG/DL (0.2-1.0) 0.4 MG/DL (0.2-1.0) Aspartate Amino Transf (AST/SGOT) 21 U/L (15-37) 25 U/L (15-37) Alanine Aminotransferase (ALT/SGPT) 15 U/L (12-78) 23 U/L (12-78) Alkaline Phosphatase 142 U/L (46-116) H 132 U/L (46-116) H Total Creatine Kinase 56 U/L (26-308) Creatine Kinase MB 5.0 NG/ML (0.0-3.6) H Creatine Kinase MB Relative Index 8.9 Troponin I 0.080 ng/mL (0.000-0.056) Pending Total Protein 7.7 G/DL (6.4-8.2) 7.3 G/DL (6.4-8.2) Albumin 3.1 G/DL (3.4-5.0) L 3.0 G/DL (3.4-5.0) L Globulin 4.6 g/dL 4.3 g/dL Albumin/Globulin Ratio 0.7 (1.0-2.7) L 0.7 (1.0-2.7) L Hemoglobin A1c Pending Uric Acid 3.0 MG/DL (2.6-7.2) Phosphorus Level 5.2 MG/DL (2.5-4.9) H Magnesium Level 2.0 MG/DL (1.8-2.4) Iron Level Pending Unsaturated Iron Binding Pending Ferritin 980 NG/ML (8-388) H C-Reactive Protein, Quantitative 4.2 mg/dL (0.00-0.90) H Pro-B-Type Natriuretic Peptide > 85114 pg/mL (0-125) H Triglycerides Level 85 MG/DL (30-150) Cholesterol Level 104 MG/DL (< 200) LDL Cholesterol 39 mg/dL (<100) HDL Cholesterol 51 MG/DL (40-60) Cholesterol/HDL Ratio 2.0 (3.3-4.4) L Vitamin B12 Level Pending Folate Pending Thyroid Stimulating Hormone (TSH) 3.874 uiU/mL (0.358-3.740) Height (Feet): 5 Height (Inches): 4.00 Weight (Pounds): 120 Medications Current Medications Medications (Trade) Dose Ordered Sig/Frances Route PRN Reason Start Time Stop Time Status Last Admin Dose Admin Acetaminophen (Tylenol) 650 mg Q4H PRN ORAL FEVER (temp>100.5F) 05/14/18 20:00 06/13/18 19:59 Albuterol/ Ipratropium (Albuterol/ Ipratropium) 3 ml Q4H PRN HHN Shortness of Breath 05/14/18 20:00 05/19/18 19:59 Aspirin (ASA) 81 mg DAILY ORAL 05/15/18 09:45 06/14/18 09:44 Bupropion HCl (Wellbutrin XL) 150 mg DAILY ORAL 05/15/18 09:00 06/14/18 08:59 05/15/18 08:27 Diltiazem HCl (Cardizem) 10 mg Q1H PRN IV heart rate more than 120 05/14/18 20:00 06/13/18 19:59 05/15/18 03:21 Docusate Sodium (Colace) 100 mg THREE TIMES A DAY ORAL 05/15/18 13:00 06/14/18 12:59 Heparin Sodium (Porcine) (Heparin 5000 units/ml) 5,000 units EVERY 12 HOURS SUBQ 05/14/18 21:00 06/13/18 20:59 05/15/18 08:29 Levothyroxine Sodium (Synthroid) 250 mcg ACBREAKFAST ORAL 05/15/18 06:30 06/14/18 06:29 05/15/18 06:04 Metoprolol Tartrate (Lopressor) 12.5 mg ONCE ORAL 05/15/18 09:45 05/15/18 10:45 Metoprolol Tartrate (Lopressor) 12.5 mg Q12HR ORAL 05/15/18 21:00 06/14/18 20:59 Morphine Sulfate (Morphine Sulfate) 2 mg Q4H PRN IVP severe Pain (Pain Scale 7-10) 05/14/18 20:00 05/21/18 19:59 Nitroglycerin (Ntg) 0.4 mg Q5M PRN SL Prn Chest Pain 05/14/18 20:00 06/13/18 19:59 Nitroglycerin (Ntg) 1 patch Q24H TDERMAL 05/15/18 10:00 06/14/18 09:59 Ondansetron HCl (Zofran) 4 mg Q6H PRN IVP Nausea & Vomiting 05/14/18 20:00 06/13/18 19:59 Pantoprazole (Protonix) 40 mg DAILY ORAL 05/15/18 09:45 06/14/18 09:44 Polyethylene Glycol (Miralax) 17 gm DAILYPRN PRN ORAL Constipation 05/14/18 20:00 06/13/18 19:59 05/15/18 03:14 Sevelamer Carbonate (Renvela) 2,400 mg THREE TIMES A DAY ORAL 05/15/18 13:00 06/14/18 12:59 Temazepam (Restoril) 15 mg HSPRN PRN ORAL Insomnia 05/14/18 20:00 05/21/18 19:59 05/14/18 22:15 Assessment/Plan Problem List: (1) Atrial fibrillation with rapid ventricular response ICD Codes: I48.91 - Unspecified atrial fibrillation SNOMED: 754771440828730 (2) ACS (acute coronary syndrome) ICD Codes: I24.9 - Acute ischemic heart disease, unspecified SNOMED: 291483038 (3) Costochondritis ICD Codes: M94.0 - Chondrocostal junction syndrome [Tietze] SNOMED: 46989267 (4) ESRF (end stage renal failure) ICD Codes: N18.6 - End stage renal disease SNOMED: 30469333 (5) Acquired hypothyroidism ICD Codes: E03.9 - Hypothyroidism, unspecified SNOMED: 762100663 (6) Elevated troponin ICD Codes: R74.8 - Abnormal levels of other serum enzymes SNOMED: 394121715, 759250761, 220052983 Assessment/Plan telemetry monitoring control heart rate symptomatic treatment check electrolytes f/u by renal for HD Clay Dudley MD May 15, 2018 10:47
[2018-05-15 10:59] LABS: % IRON SATURATION 23 % (15-50); IRON 42 ug/dL (50-175); TOTAL IRON BINDING CAPACITY 184 ug/dL (250-450)
[2018-05-15 12:00] VITALS: BP 116/63
--- NOTE | 2018-05-15 12:36 | Consultation ---
History of Present Illness General Date patient seen: May 15, 2018 Time patient seen: 22:45 Chief Complaint: Chest Pain Present Illness HPI 77 year old female Brought in by ambulance from [facility] due to chest pain, x 40 min after returning residential from dialysis. ASA 162mg given en route to ER. NTG not give due to low BP. Troponin noted to be elevated and rising, currently no chest pain, EKG no ischemia. Previous stress tests have been negative. Allergies: Coded Allergies: ESZOPICLONE (Verified Allergy, Unknown, 11/11/17) LEVOFLOXACIN (Verified Allergy, Unknown, 11/11/17) NAPROXEN (Verified Allergy, Unknown, 11/11/17) NSAIDS (NON-STEROIDAL ANTI-INFLAMMA (Verified Allergy, Unknown, 11/11/17) PREGABALIN (Verified Allergy, Unknown, 11/11/17) Medication History Scheduled Atorvastatin Calcium* (Atorvastatin Calcium*), 20 MG ORAL BEDTIME, (Reported) Bupropion Xl* (Bupropion Xl*), 150 MG ORAL Q24H, (Reported) Fluticasone Propionate (Flonase Allergy Relief), 2 PUFFS NS BEDTIME, (Reported) Irbesartan* (Avapro*), 300 MG ORAL DAILY, (Reported) Levothyroxine Sodium* (Levothyroxine Sodium*), 250 MCG ORAL DAILY, (Reported) Lipase/Protease/Amylase (Creon Dr 24,000 Units Capsule), 2 EACH PO TID, ( Reported) Megestrol Acetate (Megestrol Acetate), 400 MG PO DAILY, (Reported) Metoprolol Tartrate* (Metoprolol Tartrate*), 25 MG ORAL BID, (Reported) Pantoprazole* (Pantoprazole*), 40 MG ORAL DAILY, (Reported) Sevelamer Hcl (Renagel), 2,400 MG ORAL THREE TIMES A DAY, (Reported) Vit B1 Mn/B2/B3/B5/B6/B12/C/Fa (B Complex With Vitamin C Tab), 1 TAB ORAL DAILY, (Reported) Scheduled PRN Acetaminophen* (Tylenol Extra Strength*), 1,000 MG ORAL Q8HR PRN for For Pain, ( Reported) Acetaminophen* (Acetaminophen 325MG Tablet*), 325 MG ORAL Q6H PRN for Mild Pain/ Temp > 100.5, (Reported) Bisacodyl (Dulcolax), Unknown Dose RC every 3 days PRN for Constipation, ( Reported) Meclizine Hcl* (Meclizine*), 25 MG ORAL Q8H PRN for for dizziness, (Reported) Melatonin (Melatonin), 6 MG ORAL BEDTIME PRN for CIRCADIAN RHYTHM , (Reported) Ondansetron Odt* (Zofran Odt*), 8 MG ORAL Q6H PRN for Nausea & Vomiting, ( Reported) Polyethylene Glycol 3350* (Miralax*), 17 GM ORAL BID PRN for Constipation, ( Reported) Ranitidine Hcl* (Zantac*), 150 MG ORAL Q6HR PRN for For Pain, (Reported) Discontinued Medications Amitriptyline HCl (Amitriptyline HCl), 25 MG ORAL BEDTIME, (Reported) Discontinued Reason: Therapy completed Amlodipine Besylate* (Amlodipine Besylate*), 2.5 MG ORAL DAILY, (Reported) Discontinued Reason: Therapy completed Calcium Acetate (Calcium Acetate), 667 MG PO, (Reported) Discontinued Reason: Therapy completed Insulin Lispro (Humalog), 0 SUBQ, (Reported) Discontinued Reason: Pt stopped taking med Megestrol Acetate (Megestrol Acetate), 40 MG PO DAILY, (Reported) Discontinued Reason: Prescription changed Trazodone* (Trazodone*), 50 MG ORAL BEDTIME, (Reported) Discontinued Reason: Therapy completed Valsartan (Diovan), 320 MG ORAL DAILY, (Reported) Discontinued Reason: Therapy completed Zolpidem Tartrate* (Zolpidem Tartrate*), 5 MG ORAL BEDTIME PRN for Insomnia, ( Reported) Discontinued Reason: Therapy completed Patient History Healthcare decision maker Resuscitation status Full Code Advanced Directive on File Review of Systems Constitutional: Reports: no symptoms Eye: Reports: no symptoms Respiratory: Reports: no symptoms Cardiovascular: Reports: chest pain Gastrointestinal: Reports: no symptoms Genitourinary: Reports: no symptoms Musculoskeletal: Reports: no symptoms Skin: Reports: no symptoms Psychiatric: Reports: no symptoms Neurological: Reports: no symptoms Endocrine: Reports: no symptoms Hematologic/Lymphatic: Reports: no symptoms Physical Exam General Appearance: no apparent distress, alert Lines, tubes and drains: peripheral HEENT: normocephalic, atraumatic, anicteric, mucous membranes moist, PERRL Neck: non-tender, normal alignment, supple, normal inspection Respiratory/Chest: chest wall non-tender, lungs clear, normal breath sounds, no respiratory distress, no accessory muscle use Cardiovascular/Chest: normal peripheral pulses, normal rate Abdomen: normal bowel sounds, non tender, soft, no organomegaly, no mass Extremities: normal range of motion, non-tender, normal inspection Skin Exam: normal pigmentation, warm/dry 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 grossly normal, no motor/sensory deficits Last 24 Hour Vital Signs Date Time Temp Pulse Resp B/P (MAP) Pulse Ox O2 Delivery O2 Flow Rate FiO2 05/15/18 10:37 115/62 05/15/18 10:36 81 115/62 05/15/18 09:00 Room Air 05/15/18 08:00 79 05/15/18 08:00 97.4 80 18 115/62 (79) 95 05/15/18 04:00 97.0 130 18 123/80 (94) 93 05/15/18 04:00 93 05/15/18 03:21 130 123/80 05/15/18 00:00 97.9 80 20 132/65 (87) 100 05/14/18 21:23 81 05/14/18 21:13 98.1 80 18 112/59 (76) 98 05/14/18 21:11 Room Air 05/14/18 20:36 102 20 Room Air 21 05/14/18 20:35 96.4 104 14 110/62 99 Room Air 05/14/18 18:34 96.4 104 14 110/62 99 Room Air 05/14/18 18:17 132 116/90 05/14/18 18:00 99 17 Room Air 05/14/18 17:42 98.6 95 18 86/58 98 Room Air Intake and Output 05/14/18 05/15/18 19:00 07:00 Intake Total 360 ml Balance 360 ml Intake Oral 360 ml Laboratory Tests Test 05/14/18 18:16 05/15/18 07:40 White Blood Count 13.3 K/UL (4.8-10.8) H 9.1 K/UL (4.8-10.8) Red Blood Count 3.35 M/UL (4.20-5.40) L 3.01 M/UL (4.20-5.40) L Hemoglobin 11.2 G/DL (12.0-16.0) L 10.1 G/DL (12.0-16.0) L Hematocrit 33.2 % (37.0-47.0) L 29.8 % (37.0-47.0) L Mean Corpuscular Volume 99 FL (80-99) 99 FL (80-99) Mean Corpuscular Hemoglobin 33.5 PG (27.0-31.0) H 33.6 PG (27.0-31.0) H Mean Corpuscular Hemoglobin Concent 33.8 G/DL (32.0-36.0) 33.9 G/DL (32.0-36.0) Red Cell Distribution Width 14.6 % (11.6-14.8) 14.7 % (11.6-14.8) Platelet Count 315 K/UL (150-450) 338 K/UL (150-450) Mean Platelet Volume 7.8 FL (6.5-10.1) 7.6 FL (6.5-10.1) Neutrophils (%) (Auto) 69.3 % (45.0-75.0) 57.1 % (45.0-75.0) Lymphocytes (%) (Auto) 12.4 % (20.0-45.0) L 20.4 % (20.0-45.0) Monocytes (%) (Auto) 15.4 % (1.0-10.0) H 19.7 % (1.0-10.0) H Eosinophils (%) (Auto) 1.4 % (0.0-3.0) 0.8 % (0.0-3.0) Basophils (%) (Auto) 1.6 % (0.0-2.0) 1.9 % (0.0-2.0) Prothrombin Time 10.2 SEC (9.30-11.50) 10.4 SEC (9.30-11.50) Prothromb Time International Ratio 1.0 (0.9-1.1) 1.0 (0.9-1.1) Activated Partial Thromboplast Time 22 SEC (23-33) L 27 SEC (23-33) Sodium Level 131 MMOL/L (136-145) L 131 MMOL/L (136-145) L Potassium Level 3.9 MMOL/L (3.5-5.1) 4.3 MMOL/L (3.5-5.1) Chloride Level 92 MMOL/L (98-107) L 93 MMOL/L (98-107) L Carbon Dioxide Level 25 MMOL/L (21-32) 24 MMOL/L (21-32) Anion Gap 14 mmol/L (5-15) 14 mmol/L (5-15) Blood Urea Nitrogen 37 mg/dL (7-18) H 55 mg/dL (7-18) H Creatinine 2.7 MG/DL (0.55-1.30) H 3.7 MG/DL (0.55-1.30) H Estimat Glomerular Filtration Rate mL/min (>60) mL/min (>60) Glucose Level 218 MG/DL (74-106) H 145 MG/DL (74-106) H Calcium Level 9.6 MG/DL (8.5-10.1) 10.5 MG/DL (8.5-10.1) H Total Bilirubin 0.6 MG/DL (0.2-1.0) 0.4 MG/DL (0.2-1.0) Aspartate Amino Transf (AST/SGOT) 21 U/L (15-37) 25 U/L (15-37) Alanine Aminotransferase (ALT/SGPT) 15 U/L (12-78) 23 U/L (12-78) Alkaline Phosphatase 142 U/L (46-116) H 132 U/L (46-116) H Total Creatine Kinase 56 U/L (26-308) Creatine Kinase MB 5.0 NG/ML (0.0-3.6) H Creatine Kinase MB Relative Index 8.9 Troponin I 0.080 ng/mL (0.000-0.056) 4.230 ng/mL (0.000-0.056) Total Protein 7.7 G/DL (6.4-8.2) 7.3 G/DL (6.4-8.2) Albumin 3.1 G/DL (3.4-5.0) L 3.0 G/DL (3.4-5.0) L Globulin 4.6 g/dL 4.3 g/dL Albumin/Globulin Ratio 0.7 (1.0-2.7) L 0.7 (1.0-2.7) L Hemoglobin A1c 6.8 % (4.3-6.0) H Uric Acid 3.0 MG/DL (2.6-7.2) Phosphorus Level 5.2 MG/DL (2.5-4.9) H Magnesium Level 2.0 MG/DL (1.8-2.4) Iron Level 42 ug/dL (50-175) L Total Iron Binding Capacity 184 ug/dL (250-450) L Percent Iron Saturation 23 % (15-50) Unsaturated Iron Binding 142 ug/dL (112-346) Ferritin 980 NG/ML (8-388) H C-Reactive Protein, Quantitative 4.2 mg/dL (0.00-0.90) H Pro-B-Type Natriuretic Peptide > 55056 pg/mL (0-125) H Triglycerides Level 85 MG/DL (30-150) Cholesterol Level 104 MG/DL (< 200) LDL Cholesterol 39 mg/dL (<100) HDL Cholesterol 51 MG/DL (40-60) Cholesterol/HDL Ratio 2.0 (3.3-4.4) L Vitamin B12 Level 661 PG/ML (193-986) Folate 19.1 NG/ML (8.6-58.9) Thyroid Stimulating Hormone (TSH) 3.874 uiU/mL (0.358-3.740) Free Thyroxine 1.41 NG/DL (0.76-1.46) Free Triiodothyronine 0.9 pg/mL (2.3-4.2) L Height (Feet): 5 Height (Inches): 4.00 Weight (Pounds): 120 Medications Current Medications Medications (Trade) Dose Ordered Sig/Frances Route PRN Reason Start Time Stop Time Status Last Admin Dose Admin Acetaminophen (Tylenol) 650 mg Q4H PRN ORAL FEVER (temp>100.5F) 05/14/18 20:00 06/13/18 19:59 Albuterol/ Ipratropium (Albuterol/ Ipratropium) 3 ml Q4H PRN HHN Shortness of Breath 05/14/18 20:00 05/19/18 19:59 Aspirin (ASA) 81 mg DAILY ORAL 05/15/18 09:45 06/14/18 09:44 05/15/18 10:33 Bupropion HCl (Wellbutrin XL) 150 mg DAILY ORAL 05/15/18 09:00 06/14/18 08:59 05/15/18 08:27 Diltiazem HCl (Cardizem) 10 mg Q1H PRN IV heart rate more than 120 05/14/18 20:00 06/13/18 19:59 05/15/18 03:21 Docusate Sodium (Colace) 100 mg THREE TIMES A DAY ORAL 05/15/18 13:00 06/14/18 12:59 Heparin Sodium (Porcine) (Heparin 5000 units/ml) 5,000 units EVERY 12 HOURS SUBQ 05/14/18 21:00 06/13/18 20:59 05/15/18 08:29 Levothyroxine Sodium (Synthroid) 250 mcg ACBREAKFAST ORAL 05/15/18 06:30 06/14/18 06:29 05/15/18 06:04 Metoprolol Tartrate (Lopressor) 12.5 mg Q12HR ORAL 05/15/18 21:00 06/14/18 20:59 Morphine Sulfate (Morphine Sulfate) 2 mg Q4H PRN IVP severe Pain (Pain Scale 7-10) 05/14/18 20:00 05/21/18 19:59 Nitroglycerin (Ntg) 0.4 mg Q5M PRN SL Prn Chest Pain 05/14/18 20:00 06/13/18 19:59 Nitroglycerin (Ntg) 1 patch Q24H TDERMAL 05/15/18 10:00 06/14/18 09:59 05/15/18 10:37 Ondansetron HCl (Zofran) 4 mg Q6H PRN IVP Nausea & Vomiting 05/14/18 20:00 06/13/18 19:59 Pantoprazole (Protonix) 40 mg DAILY ORAL 05/15/18 09:45 06/14/18 09:44 05/15/18 10:33 Polyethylene Glycol (Miralax) 17 gm DAILYPRN PRN ORAL Constipation 05/14/18 20:00 06/13/18 19:59 05/15/18 03:14 Sevelamer Carbonate (Renvela) 2,400 mg THREE TIMES A DAY ORAL 05/15/18 13:00 06/14/18 12:59 Temazepam (Restoril) 15 mg HSPRN PRN ORAL Insomnia 05/14/18 20:00 05/21/18 19:59 05/14/18 22:15 Assessment/Plan Status: stable Assessment/Plan Assessment HTN ESRD on HD Hypothyroidism Hx of Thyroid cancer PUD HLD breast cancer Paroxysmal AFIB Elevated troponin/NSTEMI Plan: Serial EKg Troponin until peak Echocardiogram -> preserved LV function, moderate MR and mild Heparin gtt for elevated troponin and PAF Rate control with lopressor Aspirin Statin nitro prn chest pain Transfer to [facility] for cardiac cath to evaluate anatomy Philip Astudillo MD May 15, 2018 12:36
[2018-05-15] MEDS: Docusate 100mg cap ORAL SCH ×2 (12:40→17:50)
[2018-05-15 16:00] VITALS: BP 124/68
[2018-05-15] MEDS ORDERED: Heparin 25,000u/D5W 500ml 500 ML IV SCH (17:30)
[2018-05-15 20:00] VITALS: BP 116/68
[2018-05-15] MEDS: Metoprolol Tartrate 12.5mg TAB ORAL SCH (20:12)
--- NOTE | 2018-05-15 21:45 | Consultation ---
DATE OF CONSULTATION: 05/15/2018 HISTORY OF PRESENT ILLNESS: The patient is a 77-year-old female with a history of multiple medical problems, who has been admitted to the hospital for chest pain. The patient has a history of depression, anxiety, cognitive impairment. During the evaluation, the patient stated that she has episodes of anxiety; however, is depressive symptoms are alleviated on Wellbutrin. She also has memory impairment. Sleep is adequate. She denied any irritable mood; however, complained of anxiety. No suicidal or homicidal ideations. No manic or psychotic symptoms. No suicidal or homicidal ideation. PAST PSYCHIATRIC HISTORY: She has a history of depression, has been prescribed Wellbutrin XL 150 mg in the morning and Namenda for cognitive impairment. PAST MEDICAL HISTORY: Significant for pneumonia, atrial fibrillation, chest pain, asthma, end-stage renal failure, acute coronary syndrome, costochondritis. ALLERGIES: Zopiclone, levofloxacin, Naprosyn, NSAIDs. SUBSTANCE ABUSE HISTORY: No known history of illicit drug use or alcohol. MENTAL STATUS EXAMINATION: The patient is alert, oriented times self, place, date and situation. She is cooperative, pleasant. Mood is anxious. Affect is constricted. Congruent mood. Thought process is concrete. Thought content, no suicidal or homicidal ideation. ASSESSMENT: AXIS I: Major depressive disorder. Anxiety disorder. AXIS II: Deferred. AXIS III: As above. AXIS IV: Low AXIS V: 50. PLAN: 1. The patient will be continued on Wellbutrin. 2. Continue Namenda. 3. Provide the patient with reality orientation and supportive therapy. Rachelle Lobato M.D. DR: Ye JOB#: [id number] CC:
[2018-05-16] VITALS: BP 126/69
[2018-05-16] MEDS ORDERED: Heparin 25,000u/D5W 500ml 500 ML IV SCH ×2 (01:15→08:30)
[2018-05-16] MEDS ORDERED: Heparin 5000 units/ml inj IV ONE ×2 (01:30)
[2018-05-16] MEDS: Levothyroxine 125mcg tab ORAL SCH (06:16)
[2018-05-16 08:00] VITALS: BP 135/67
--- NOTE | 2018-05-16 08:32 | Nephrology Progress Note ---
Assessment/Plan Problem List: (1) ESRF (end stage renal failure) (2) ACS (acute coronary syndrome) Assessment: Troponin rob to over 4 (3) Atrial fibrillation with rapid ventricular response (4) Hypothyroidism Assessment 1. Hypertension. 2. End-stage renal disease, on hemodialysis. has right Permacath 3. Depression. 4. Hypothyroidism. h/o Thyroid Ca 5. Peptic ulcer disease. 6. Hyperlipidemia. 7. h/o Bilateral breast cancer . s/p chemo and radiation 8. Atrial Fib Plan HD today renal diet asa lopressor nitrate heparin per consultants / Methods Specialist Engineer transfer to [facility] for ? Cath? Objective Objective Last 24 Hour Vital Signs Date Time Temp Pulse Resp B/P (MAP) Pulse Ox O2 Delivery O2 Flow Rate FiO2 05/16/18 07:44 88 18 Room Air 21 05/16/18 04:00 77 05/16/18 00:00 74 05/16/18 00:00 98.5 79 20 126/69 (88) 95 05/15/18 23:38 74 20 Room Air 21 05/15/18 21:00 Room Air 05/15/18 20:12 79 116/68 05/15/18 20:00 79 05/15/18 20:00 98.8 79 20 116/68 (84) 97 05/15/18 16:00 98.0 75 18 124/68 (86) 97 05/15/18 16:00 76 05/15/18 12:00 75 05/15/18 12:00 97.3 78 18 116/63 (80) 96 05/15/18 10:37 115/62 05/15/18 10:36 81 115/62 05/15/18 09:00 Room Air Intake and Output 05/15/18 05/16/18 19:00 07:00 Intake Total 360 ml Output Total 0 ml Balance 360 ml 0 ml Intake Oral 360 ml Output Urine Total 0 ml Laboratory Tests 05/15/18 14:20: Troponin I 4.979H 05/15/18 18:00: Activated Partial Thromboplast Time 27 05/16/18 00:19: Activated Partial Thromboplast Time 30 05/16/18 04:00: Thyroid Stimulating Hormone (TSH) 3.275 05/16/18 07:30: Activated Partial Thromboplast Time 51H Height (Feet): 5 Height (Inches): 4.00 Weight (Pounds): 120 General Appearance: no apparent distress Cardiovascular: normal rate, arrhythmia Respiratory/Chest: decreased breath sounds Abdomen: soft Brendan Jessica MD May 16, 2018 08:32
[2018-05-16] MEDS ORDERED: Heparin 5000 units/ml inj IV SCH (09:00)
[2018-05-16] MEDS: Docusate 100mg cap ORAL SCH (09:00)
--- NOTE | 2018-05-16 10:15 | Cardiology Progress Note ---
Assessment/Plan Status: stable Assessment/Plan Assessment/Plan Status: stable Assessment/Plan Assessment HTN ESRD on HD Hypothyroidism Hx of Thyroid cancer PUD HLD breast cancer Paroxysmal AFIB Elevated troponin/NSTEMI Plan: Serial EKg Troponin until peak Echocardiogram -> preserved LV function, moderate MR and mild Heparin gtt for elevated troponin and PAF Rate control with lopressor Aspirin Statin nitro prn chest pain Transfer to [facility] for cardiac cath to evaluate anatomy Subjective Cardiovascular: Reports: no symptoms Respiratory: Reports: no symptoms Gastrointestinal/Abdominal: Reports: no symptoms Genitourinary: Reports: no symptoms Subjective No acute events, troponin rising, arranging transfer to [facility] for cardiac cath Objective Last 24 Hour Vital Signs Date Time Temp Pulse Resp B/P (MAP) Pulse Ox O2 Delivery O2 Flow Rate FiO2 05/16/18 08:00 97.6 78 18 135/67 (89) 100 05/16/18 07:44 88 18 Room Air 21 05/16/18 04:00 77 05/16/18 00:00 74 05/16/18 00:00 98.5 79 20 126/69 (88) 95 05/15/18 23:38 74 20 Room Air 21 05/15/18 21:00 Room Air 05/15/18 20:12 79 116/68 05/15/18 20:00 79 05/15/18 20:00 98.8 79 20 116/68 (84) 97 05/15/18 16:00 98.0 75 18 124/68 (86) 97 05/15/18 16:00 76 05/15/18 12:00 75 05/15/18 12:00 97.3 78 18 116/63 (80) 96 05/15/18 10:37 115/62 05/15/18 10:36 81 115/62 General Appearance: no apparent distress, alert EENT: PERRL/EOMI, normal ENT inspection Neck: non-tender, normal alignment Rhythm: NSR Cardiovascular: normal peripheral pulses, normal rate Respiratory/Chest: chest wall non-tender, lungs clear Abdomen: normal bowel sounds, non tender, soft, no organomegaly Extremities: normal range of motion, non-tender Neurologic: prepared foods team leader II-XII grossly normal, no motor/sensory deficits Intake and Output 05/15/18 05/16/18 19:00 07:00 Intake Total 360 ml Output Total 0 ml Balance 360 ml 0 ml Intake Oral 360 ml Output Urine Total 0 ml Laboratory Tests Test 05/15/18 14:20 05/15/18 18:00 05/16/18 00:19 05/16/18 04:00 Troponin I 4.979 ng/mL (0.000-0.056) Activated Partial Thromboplast Time 27 SEC (23-33) 30 SEC (23-33) Thyroid Stimulating Hormone (TSH) 3.275 uiU/mL (0.358-3.740) Test 05/16/18 07:30 Activated Partial Thromboplast Time 51 SEC (23-33) H Microbiology Date/Time Source Procedure Growth Status 05/14/18 18:30 Rectum VRE Culture - Final Enterococcus Faecalis - Vre Complete 05/14/18 18:30 Rectum - Preliminary Resulted Philip Astudillo MD May 16, 2018 10:15
[2018-05-16] MEDS: BuPROPion XL 150mg tab ORAL SCH (10:25)
[2018-05-16 10:26] VITALS: BP 135/67
[2018-05-16] MEDS: Metoprolol Tartrate 12.5mg TAB ORAL SCH (10:26)
[2018-05-16] MEDS: Nitroglycerin Patch 0.4mg TDERMAL SCH (10:26)
[2018-05-16] MEDS: Aspirin Baby 81mg ORAL SCH (10:26)
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
--- NOTE | 2018-05-16 22:02 | Progress Note ---
DATE: 05/16/2018 SUBJECTIVE: The patient was anxious. Today, she was told that her troponin actually has elevated and she needs more acute care. the patient was transferred to an outside hospital. The patient has anxiety and concerned about her current medical conditions. MENTAL STATUS EXAMINATION: The patient is alert and oriented times self, place, and situation. Mood is anxious. Affect is constricted, congruent with mood. Thought process is concrete. Thought content, no suicidal or homicidal ideations. ASSESSMENT: 1. Anxiety. 2. Depression. PLAN: We will continue the Wellbutrin. Continue the Ativan. Provide the patient with supportive therapy and reality orientation. Rachelle Lobato M.D. DR: NICOLE JOB#: [id number] CC:
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
--- NOTE | 2018-05-19 10:46 | Cardiology Report ---
APPROVED REPORT EXAM: Two-dimensional and M-mode echocardiogram with Doppler and color Doppler. INDICATION LV FUNCTION M-Mode DIMENSIONS IVSd1.7 (0.7-1.1cm)Left Atrium (MM)4.7 (1.6-4.0cm) LVDd5.9 (3.5-5.6cm)Aortic Root3.2 (2.0-3.7cm) PWd1.4 (0.7-1.1cm)Aortic Cusp Exc.1.4 (1.5-2.0cm) IVSs2.0 cm LVDs4.1 (2.5-4.0cm) PWs1.9 cm Normal left ventricular chamber size, systolic function and wall motion. Left ventricular ejection fraction estimated to be 60-65 %. Mild left ventricular hypertrophy by 2-D. No evidence of pericardial effusion. Mild left atrial enlargement . Right cardiac chamber sizes are within normal limits. Aortic valve calcification with decreased cusp excursion c/w mild aortic stenosis. Moderately Thickened mitral valve leaflets with normal excursion. Moderately Mitral annulus and aortic root calcification. Echogenic material noted on posterior mitral valve leaflet . Normal pulmonic valve structure. Normal tricuspid valve structure. IVC at size 2.1 cm with physiologic collapse. A color flow and spectral Doppler study was performed and revealed: No aortic insufficiency . Peak aortic valve gradient of 24 mm Hg and a mean of 13 mmHg. Aortic valve area 1.4 cm2 calculated by continuity equation suggestive of mild aortic stenosis. Moderate mitral regurgitation. Normal left ventricular diastolic function. Mild tricuspid regurgitation. Tricuspid systolic velocities suggests peak right ventricular systolic pressure of 51 mmHg,consistent with moderate pulmonary hypertension. No Pulmonic regurgitation present.
== END 2018-05-16 10:45 | disposition left against medical advice (07) | DRG 280 ==
LOC: EDBD 17:42 → EMR 18:14 → 2E 18:17 → EDBEDREQ 19:03
PROC: 5A1D70Z Performance of Urinary Filtration, Intermittent, Less than 6 Hours Per Day (ICD-10-PCS; principal; 2018-05-16)
DX: I21.4 Non-ST elevation (NSTEMI) myocardial infarction (principal); N18.6 End stage renal disease; I12.0 Hypertensive chronic kidney disease with stage 5 chronic kidney disease or end stage renal disease; Z99.2 Dependence on renal dialysis; K27.9 Peptic ulcer, site unspecified, unspecified as acute or chronic, without hemorrhage or perforation; E03.9 Hypothyroidism, unspecified; F32.9 Major depressive disorder, single episode, unspecified; Z85.3 Personal history of malignant neoplasm of breast; Z92.3 Personal history of irradiation; Z88.6 Allergy status to analgesic agent; Z88.1 Allergy status to other antibiotic agents; Z88.8 Allergy status to other drugs, medicaments and biological substances; E11.22 Type 2 diabetes mellitus with diabetic chronic kidney disease; Z85.850 Personal history of malignant neoplasm of thyroid; I48.0 Paroxysmal atrial fibrillation; F41.9 Anxiety disorder, unspecified
CPT/HCPCS: 36415; 71045; 80053; 80061; 82550; 82553; 82607; 82728; 82746; 83036; 83540; 83550; 83735; 83880; 84100; 84439; 84443; 84481; 84484; 84550; 85025; 85610; 85730; 86140; 87081; 93005; 93306; 93970; 94664; 96365; 96375; 99284

== ENCOUNTER 2018-06-19 12:52 | Inpatient (IN) | payer MEDICARE, BC ==
[2018-06-19] VITALS (25 sets, daily range): BP systolic 57–151; BP diastolic 27–100
[~2018-06-19] VITALS: Ht 152.4 cm; Wt 71.4 kg
[~2018-06-19 12:52] MED LIST changes: +ACETAMINOPHEN325 M1 ORAL; +AVAPRO300 MG ORAL; +CREON DR 24,001 EACH PO; +DULCOLAX10 MG RC; +FLONASE ALLERG9.9 ML NS; +MECLIZINE HCL25 MG ORAL; +MELATONIN3 MG ORAL; +MIRALAX17 G2 ORAL; +ZANTAC150 MG ORAL; +ZOFRAN ODT8 MG ORAL; +[UNRECOGNIZED DRUG - OTHER] PO
[2018-06-19] MEDS ORDERED: Piperacillin/Tazobactam 3.375 GM in NS 110 ML IVPB ONE (13:30)
[2018-06-19] MEDS ORDERED: Vancomycin 1 GM in NS 275 ML IVPB ONE (13:30)
--- NOTE | 2018-06-19 13:34 | Emergency Room Report ---
History of Present Illness General Chief Complaint: Altered Level of Consciousness Source: EMS Present Illness HPI Patient persist by paramedics in acute distress during failure upon initial evaluation patient is minimally responsive to physical stimuli Audible crackles and tachypneic with accessory muscle use Hypoxic On rapid evaluation of previous history patient appears to have been at this hospital recently with ACS Currently attempting to obtain further history regarding this acute presentation Patient apparently did receive dialysis yesterday I'm not able to obtain any history from the patient herself History of present illness remains significantly limited Upon attempt of placing central line patient has dressings on bilateral groin region indicative of possible recent intervention/study Allergies: Coded Allergies: ESZOPICLONE (Verified Allergy, Unknown, 11/11/17) LEVOFLOXACIN (Verified Allergy, Unknown, 11/11/17) NAPROXEN (Verified Allergy, Unknown, 11/11/17) NSAIDS (NON-STEROIDAL ANTI-INFLAMMA (Verified Allergy, Unknown, 11/11/17) PREGABALIN (Verified Allergy, Unknown, 11/11/17) UNABLE TO ASSESS (Unverified , 06/19/18) Patient History Limited by: medical condition Pertinent Family History: unable to obtain Now: No Reviewed Nursing Documentation: PMH: Agreed; PSxH: Agreed Nursing Documentation-PMH Past Medical History: No History, Except For Hx Hypertension: Yes Hx Diabetes: Yes - Type II Hx Cancer: No Hx Dialysis: Yes - glomerulopathy, stage 5 kidney disease M-W-F Hx Neurological Problems: No Review of Systems All Other Systems: limited - Other than the ones mentioned in the history of present illness all others are reviewed however they do stay limited due to the patient's mental status Physical Exam Vital Signs Date Time Temp Pulse Resp B/P (MAP) Pulse Ox O2 Delivery O2 Flow Rate FiO2 06/19/18 12:48 99 20 80/44 86 Room Air Sp02 EP Interpretation: reviewed, abnormal - Low oxygenation General Appearance: severe distress - Audible rails, retractions with respiratory distress Head: normocephalic Eyes: bilateral eye other - 3 mm bilaterally sluggishly reactive ENT: other - Dry mucous membranes Neck: supple Respiratory: respiratory distress, crackles Cardiovascular #1: regular rate, rhythm Gastrointestinal: non tender, soft Musculoskeletal: other - Patient moves upper extremity towards physical stimuli Neurologic: responsive, other - Significantly decreased GCS, minimal response to physical stimuli respiratory distress impending failure, Skin: other - Poor skin turgor Lymphatic: no adenopathy Procedures Critical Care Time Critical Care Time 70 minutes for multiple re-evaluations, critical presentation, respiratory failure hypotensive and acute distress, multiple re-evaluations not including any procedural time Central Line Central Line : Consent: Emergent Central Line Lumen: triple Maximal Sterile Barrier Tech: yes cap, yes mask, yes sterile gown, yes sterile gloves, yes large sterile sheet, yes hand hygiene, yes chlorhexidine prep Central Line Postion: femoral (R) Anesthesia: Lidocaine cc's of anesthesia: 2 Complications: none Central Line Post Position: sutured Attempts: One Patient Tolerated: Well Complications: None Progress Upon exposure of the patient there are 2, 2 x 2's on each groin region taped down Intubation Intubation : Consent: Emergent Intubation Method: orotracheal Tube Size (cm): 8.0 Medications: Etomidate, Rocuronium Breath Sounds after Intubation: equal Intubation Complications: no complications Post Intubation Xray: Yes Progress/Xray Impression: See report Attempts: One Patient Tolerated: Well Complications: None Progress Please note that rock creatinine was used given the patient's renal failure status Medical Decision Making Diagnostic Impression: Primary Impression: Respiratory failure Additional Impression: Septic shock ER Course Patient is a fairly complex patient with multiple differential to consideration including but not limited to cardiac cardiopulmonary, infectious and vascular emergencies Patient's x-ray shows large right-sided infiltrate Upon arrival again the patient was found to be in respiratory failure requiring airway intubation Central line was also placed given the patient's hypotensive presentation Aggressive hydration is made Broad spectrum antibiotics provided Patient showing signs of severe sepsis and septic shock After boluses of hydration Dopamine is also ordered Sepsis reexamination Time: Reevaluation VS refer to nursing note cvs: RRR respiratory: improved respiration peripheral pulses: 2+radial cap refill:<2 seconds skin exam: warm, dry, not mottled Patient remains in critical care and condition Patient's primary physician also at bedside providing some input that the patient had recent cardiac ablation He reports seeing the patient yesterday and recommended to present to the emergency room however the patient refused And after family saw the patient today 911 was contacted Labs Test 06/19/18 13:30 06/19/18 13:50 06/19/18 14:14 06/19/18 14:28 White Blood Count 3.0 K/UL (4.8-10.8) Red Blood Count 2.77 M/UL (4.20-5.40) Hemoglobin 8.3 G/DL (12.0-16.0) Hematocrit 26.9 % (37.0-47.0) Mean Corpuscular Volume 97 FL (80-99) Mean Corpuscular Hemoglobin 30.0 PG (27.0-31.0) Mean Corpuscular Hemoglobin Concent 30.8 G/DL (32.0-36.0) Red Cell Distribution Width 14.8 % (11.6-14.8) Platelet Count 268 K/UL (150-450) Mean Platelet Volume 8.4 FL (6.5-10.1) Neutrophils (%) (Auto) % (45.0-75.0) Lymphocytes (%) (Auto) % (20.0-45.0) Monocytes (%) (Auto) % (1.0-10.0) Eosinophils (%) (Auto) % (0.0-3.0) Basophils (%) (Auto) % (0.0-2.0) Differential Total Cells Counted 100 Neutrophils % (Manual) 55 % (45-75) Lymphocytes % (Manual) 11 % (20-45) Monocytes % (Manual) 8 % (1-10) Eosinophils % (Manual) 0 % (0-3) Basophils % (Manual) 0 % (0-2) Band Neutrophils 26 % (0-8) Platelet Estimate Adequate Platelet Morphology Normal Polychromasia 1+ Hypochromasia 1+ Anisocytosis 1+ Schistocytes 1+ Prothrombin Time 13.4 SEC (9.30-11.50) Prothromb Time International Ratio 1.3 (0.9-1.1) Activated Partial Thromboplast Time 24 SEC (23-33) Sodium Level 134 MMOL/L (136-145) Potassium Level 4.1 MMOL/L (3.5-5.1) Chloride Level 94 MMOL/L (98-107) Carbon Dioxide Level 25 MMOL/L (21-32) Anion Gap 15 mmol/L (5-15) Blood Urea Nitrogen 46 mg/dL (7-18) Creatinine 3.9 MG/DL (0.55-1.30) Estimat Glomerular Filtration Rate mL/min (>60) Glucose Level 130 MG/DL (74-106) Lactic Acid Level 7.10 mmol/L (0.4-2.0) Calcium Level 10.1 MG/DL (8.5-10.1) Total Bilirubin 0.6 MG/DL (0.2-1.0) Aspartate Amino Transf (AST/SGOT) 34 U/L (15-37) Alanine Aminotransferase (ALT/SGPT) 24 U/L (12-78) Alkaline Phosphatase 112 U/L (46-116) Total Creatine Kinase 53 U/L (26-308) Creatine Kinase MB 1.1 NG/ML (0.0-3.6) Creatine Kinase MB Relative Index 2.0 Troponin I 0.223 ng/mL (0.000-0.056) Pro-B-Type Natriuretic Peptide 02059 pg/mL (0-125) Total Protein 6.0 G/DL (6.4-8.2) Albumin 2.4 G/DL (3.4-5.0) Globulin 3.6 g/dL Albumin/Globulin Ratio 0.7 (1.0-2.7) Lipase 23 U/L (73-393) Urine Color Pale yellow Urine Appearance Slightly cloudy Urine pH 8 (4.5-8.0) Urine Specific [place] 1.010 (1.005-1.035) Urine Protein 4+ (NEGATIVE) Urine Glucose (UA) Negative (NEGATIVE) Urine Ketones Negative (NEGATIVE) Urine Blood 2+ (NEGATIVE) Urine Nitrite Negative (NEGATIVE) Urine Bilirubin Negative (NEGATIVE) Urine Urobilinogen Normal MG/DL (0.0-1.0) Urine Leukocyte Esterase 3+ (NEGATIVE) Urine RBC 2-4 /HPF (0 - 2) Urine WBC 30-40 /HPF (0 - 2) Urine Squamous Epithelial Cells Few /LPF (NONE/OCC) Urine Bacteria Many /HPF (NONE) Arterial Blood pH 7.425 (7.350-7.450) Arterial Blood Partial Pressure CO2 38.8 mmHg (35.0-45.0) Arterial Blood Partial Pressure O2 65.3 mmHg (75.0-100.0) Arterial Blood HCO3 24.9 mmol/L (22.0-26.0) Arterial Blood Oxygen Saturation 91.3 % (95-100) Arterial Blood Base Excess 0.5 (-2-2) Kamran Test Positive Rhythm Strip Diag. Results EP Interpretation: yes Rate: 110 Rhythm: no PVC's, no ectopy, other - sinus tach Chest X-Ray Diagnostic Results Chest X-Ray Diagnostic Results : Chest X-Ray Ordered: Yes # of Views/Limited/Complete: 1 View Indication: Shortness of Breath EP Interpretation: Yes Interpretation: no effusion, no pneumothorax, other - ET tube just at the therese, will be drawn back, right-sided large infiltrate Impression: Other - Right-sided infiltrate, ET tube will be drawn back Last Vital Signs Date Time Temp Pulse Resp B/P (MAP) Pulse Ox O2 Delivery O2 Flow Rate FiO2 06/19/18 12:48 99 20 80/44 86 Room Air Status: improved Disposition: ADMITTED INPATIENT Condition: Critical Yazmin Narayanan DO Jun 19, 2018 13:34
[2018-06-19 13:59] LABS: HEMATOCRIT 26.9 % (37.0-47.0); HEMOGLOBIN 8.3 G/DL (12.0-16.0); MEAN CORPUSCULAR VOLUME 97 FL (80-99); PLATELET COUNT 268 K/UL (150-450); RED BLOOD COUNT 2.77 M/UL (4.20-5.40); RED CELL DISTRIBUTION WIDTH 14.8 % (11.6-14.8)
[2018-06-19 14:08] LABS: ANION GAP 15 mmol/L (5-15); BLOOD UREA NITROGEN 46 mg/dL (7-18); CALCIUM 10.1 MG/DL (8.5-10.1); CARBON DIOXIDE 25 MMOL/L (21-32); CHLORIDE 94 MMOL/L (98-107); CREATININE 3.9 MG/DL (0.55-1.30); POTASSIUM 4.1 MMOL/L (3.5-5.1); SODIUM 134 MMOL/L (136-145)
[2018-06-19 14:09] LABS: INR 1.3 (0.9-1.1)
[2018-06-19 14:09] LABS: APPEARANCE,URINE SLIGHTLY CLOUDY; BILIRUBIN, URINE NEGATIVE (NEGATIVE); COLOR,URINE PALE YELLOW; GLUCOSE, URINE (UA) NEGATIVE (NEGATIVE); KETONES,URINE NEGATIVE (NEGATIVE); LEUKOCYTE ESTERASE ,URINE 3+ (NEGATIVE); NITRITE,URINE NEGATIVE (NEGATIVE); PH,URINE 8 (4.5-8.0); PROTEIN,URINE 4+ (NEGATIVE); UROBILINOGEN,URINE NORMAL MG/DL (0.0-1.0)
[2018-06-19 14:19] LABS: ALANINE AMINOTRANSFERASE 24 U/L (12-78); ALBUMIN 2.4 G/DL (3.4-5.0); ALBUMIN/GLOBULIN RATIO 0.7 (1.0-2.7); ALKALINE PHOSPHATASE 112 U/L (46-116); ASPARTATE AMINO TRANSFERASE 34 U/L (15-37); BILIRUBIN,TOTAL 0.6 MG/DL (0.2-1.0); CKMB 1.1 NG/ML (0.0-3.6); CREATINE KINASE 53 U/L (26-308)
[2018-06-19] MEDS ORDERED: UNOBMED (14:57)
[2018-06-19] MEDS ORDERED: DOPamine 400mg/250ml 250 ML IV ONE (15:30)
[2018-06-19] MEDS ORDERED: Albuterol/Ipratropium 3ml neb HHN PRN (15:45)
[2018-06-19] MEDS ORDERED: Morphine Sulfate 4mg/ml Inj (IV/IM USE ONLY) IVP PRN (15:45)
[2018-06-19] MEDS ORDERED: LORazepam Inj 2mg/ml 1ml IV PRN (15:45)
[2018-06-19] MEDS ORDERED: Miralax 17gm pkt ORAL PRN (15:45)
--- NOTE | 2018-06-19 16:34 | Diagnostic Imaging Report ---
Indication: Chest pain Technique: One view of the chest Comparison: 05/14/2018 Findings: Interim endotracheal intubation, endotracheal tube tip just above the therese. Large area of dense consolidation versus, less likely, mass occupies the right mid and lower lung. This is a new finding. There is slight blunting of both costophrenic sulci. The heart is mildly enlarged. There are left axillary surgical clips. There are severe degenerative changes of both shoulders. Right jugular tunneled dialysis catheter is again demonstrated Impression: Interim endotracheal intubation, endotracheal tube tip just above the therese Large area of dense consolidation in the right mid to lower lung are most likely pneumonia. Although appearance is somewhat masslike, mass as etiology of this finding is much less likely given absence of such on the previous study of 5 weeks earlier, although possible Cardiomegaly Other findings as noted
--- NOTE | 2018-06-19 17:14 | Diagnostic Imaging Report ---
Indication: Dyspnea Technique: One view of the chest Comparison: 3 hours earlier Findings: Interim retraction of endotracheal tube, tip now projecting approximately 6 cm above the therese. Right midlung infiltrate now appears more infiltrative, less masslike, demonstrating air bronchograms. Interim development of infiltrate in the left suprahilar region and possibly in the retrocardiac region. There appears to be left pleural effusion developing. Other findings are unchanged Impression: Improved position of endotracheal tube Developing left suprahilar and possibly left retrocardiac infiltrates Suspect developing left-sided pleural effusion
[2018-06-19] MEDS: DOPamine 400mg/250ml 250 ML IV SCH ×2 (18:45→22:20)
--- NOTE | 2018-06-19 20:17 | Cardiology Progress Note ---
Assessment/Plan Assessment/Plan sepsis lactic acidosis pneumonia possibl aspiration esrd on hg less than 50% ald stenosis on recent cath s/p ablation of svt hs of sinus issuw needign surgery planned in jul iv abx per youself pressore serial enzyme ekg ef has been normal per report of pmd recently echo will be repeated full note dictated [id number] Objective Last 24 Hour Vital Signs Date Time Temp Pulse Resp B/P (MAP) Pulse Ox O2 Delivery O2 Flow Rate FiO2 06/19/18 19:34 73/46 06/19/18 19:22 106 28 100 06/19/18 18:45 90/56 06/19/18 18:33 100 06/19/18 18:28 Mechanical Ventilator 06/19/18 18:00 102 31 100 06/19/18 16:39 Mechanical Ventilator 06/19/18 16:16 97.9 98 22 90/56 97 Mechanical Ventilator 100 06/19/18 16:10 100.4 64 23 63/27 (39) 100 06/19/18 16:09 90/56 06/19/18 15:54 87/54 06/19/18 15:39 89/49 06/19/18 15:33 97.9 98 16 81/43 92 Mechanical Ventilator 100 06/19/18 15:15 92 35 Mechanical Ventilator 100 06/19/18 15:15 92 35 100 06/19/18 15:12 93 17 96/41 92 Mechanical Ventilator 100 06/19/18 14:00 98.0 86 24 78/54 92 Mechanical Ventilator 100 06/19/18 13:30 90 26 78/44 90 Mechanical Ventilator 100 06/19/18 13:22 95 18 100 06/19/18 13:21 100 06/19/18 12:58 88 27 80/44 67 Room Air 06/19/18 12:58 99 20 Room Air 06/19/18 12:48 99 20 80/44 86 Room Air Laboratory Tests Test 06/19/18 13:30 06/19/18 13:50 06/19/18 14:14 06/19/18 14:28 White Blood Count 3.0 K/UL (4.8-10.8) L Red Blood Count 2.77 M/UL (4.20-5.40) L Hemoglobin 8.3 G/DL (12.0-16.0) L Hematocrit 26.9 % (37.0-47.0) L Mean Corpuscular Volume 97 FL (80-99) Mean Corpuscular Hemoglobin 30.0 PG (27.0-31.0) Mean Corpuscular Hemoglobin Concent 30.8 G/DL (32.0-36.0) L Red Cell Distribution Width 14.8 % (11.6-14.8) Platelet Count 268 K/UL (150-450) Mean Platelet Volume 8.4 FL (6.5-10.1) Neutrophils (%) (Auto) % (45.0-75.0) Lymphocytes (%) (Auto) % (20.0-45.0) Monocytes (%) (Auto) % (1.0-10.0) Eosinophils (%) (Auto) % (0.0-3.0) Basophils (%) (Auto) % (0.0-2.0) Differential Total Cells Counted 100 Neutrophils % (Manual) 55 % (45-75) Lymphocytes % (Manual) 11 % (20-45) L Monocytes % (Manual) 8 % (1-10) Eosinophils % (Manual) 0 % (0-3) Basophils % (Manual) 0 % (0-2) Band Neutrophils 26 % (0-8) H Platelet Estimate Adequate Platelet Morphology Normal Polychromasia 1+ Hypochromasia 1+ Anisocytosis 1+ Schistocytes 1+ Prothrombin Time 13.4 SEC (9.30-11.50) H Prothromb Time International Ratio 1.3 (0.9-1.1) H Activated Partial Thromboplast Time 24 SEC (23-33) Sodium Level 134 MMOL/L (136-145) L Potassium Level 4.1 MMOL/L (3.5-5.1) Chloride Level 94 MMOL/L (98-107) L Carbon Dioxide Level 25 MMOL/L (21-32) Anion Gap 15 mmol/L (5-15) Blood Urea Nitrogen 46 mg/dL (7-18) H Creatinine 3.9 MG/DL (0.55-1.30) H Estimat Glomerular Filtration Rate mL/min (>60) Glucose Level 130 MG/DL (74-106) H Lactic Acid Level 7.10 mmol/L (0.4-2.0) H 7.30 mmol/L (0.66-2.22) H Calcium Level 10.1 MG/DL (8.5-10.1) Total Bilirubin 0.6 MG/DL (0.2-1.0) Aspartate Amino Transf (AST/SGOT) 34 U/L (15-37) Alanine Aminotransferase (ALT/SGPT) 24 U/L (12-78) Alkaline Phosphatase 112 U/L (46-116) Total Creatine Kinase 53 U/L (26-308) Creatine Kinase MB 1.1 NG/ML (0.0-3.6) Creatine Kinase MB Relative Index 2.0 Troponin I 0.223 ng/mL (0.000-0.056) Pro-B-Type Natriuretic Peptide 64577 pg/mL (0-125) H Total Protein 6.0 G/DL (6.4-8.2) L Albumin 2.4 G/DL (3.4-5.0) L Globulin 3.6 g/dL Albumin/Globulin Ratio 0.7 (1.0-2.7) L Triglycerides Level 100 MG/DL (30-150) Lipase 23 U/L (73-393) L Urine Color Pale yellow Urine Appearance Slightly cloudy Urine pH 8 (4.5-8.0) Urine Specific [place] 1.010 (1.005-1.035) Urine Protein 4+ (NEGATIVE) H Urine Glucose (UA) Negative (NEGATIVE) Urine Ketones Negative (NEGATIVE) Urine Blood 2+ (NEGATIVE) H Urine Nitrite Negative (NEGATIVE) Urine Bilirubin Negative (NEGATIVE) Urine Urobilinogen Normal MG/DL (0.0-1.0) Urine Leukocyte Esterase 3+ (NEGATIVE) H Urine RBC 2-4 /HPF (0 - 2) H Urine WBC 30-40 /HPF (0 - 2) H Urine Squamous Epithelial Cells Few /LPF (NONE/OCC) Urine Bacteria Many /HPF (NONE) H Arterial Blood pH 7.425 (7.350-7.450) Arterial Blood Partial Pressure CO2 38.8 mmHg (35.0-45.0) Arterial Blood Partial Pressure O2 65.3 mmHg (75.0-100.0) L Arterial Blood HCO3 24.9 mmol/L (22.0-26.0) Arterial Blood Oxygen Saturation 91.3 % (95-100) L Arterial Blood Base Excess 0.5 (-2-2) Kamran Test Positive Test 12/13/18 14:40 Arterial Blood pH Pending Arterial Blood Partial Pressure CO2 Pending Arterial Blood Partial Pressure O2 Pending Arterial Blood HCO3 Pending Arterial Blood Oxygen Saturation Pending Arterial Blood Base Excess Pending Kamran Test Pending Jorge Travis MD Jun 19, 2018 20:17
[2018-06-19] MEDS: Heparin 5000 units/ml inj SUBQ SCH (21:10)
[2018-06-19] MEDS ORDERED: Dyna-Hex 2% Top Sol 2oz TOPIC SCH (22:00)
[2018-06-19] MEDS ORDERED: Levophed 4mg/4mL Inj IV ONE (22:16)
[2018-06-19] MEDS ORDERED: Sodium Chloride 500ML 550 ML IV SCH (23:00)
[2018-06-20] VITALS (28 sets, daily range): BP systolic 52–117; BP diastolic 11–102
[2018-06-20] MEDS ORDERED: Vancomycin 1 GM in NS 275 ML IVPB SCH ×2
[2018-06-20] MEDS ORDERED: Meropenem 500 MG in NS 55 ML IV SCH ×2
[2018-06-20] MEDS: Norepinephrine Bitartrate 8 MG in D5W 500ml 492 ML IV SCH ×3 (00:04→10:03)
[2018-06-20 05:18] LABS: HEMATOCRIT 33.3 % (37.0-47.0); HEMOGLOBIN 10.8 G/DL (12.0-16.0); MEAN CORPUSCULAR VOLUME 98 FL (80-99); PLATELET COUNT 254 K/UL (150-450); RED BLOOD COUNT 3.41 M/UL (4.20-5.40); RED CELL DISTRIBUTION WIDTH 14.7 % (11.6-14.8); WHITE BLOOD COUNT 9.7 K/UL (4.8-10.8)
[2018-06-20 05:49] LABS: ALBUMIN 2.3 G/DL (3.4-5.0); ANION GAP 16 mmol/L (5-15); BLOOD UREA NITROGEN 50 mg/dL (7-18); CALCIUM 9.9 MG/DL (8.5-10.1); CARBON DIOXIDE 21 MMOL/L (21-32); CHLORIDE 94 MMOL/L (98-107); CREATININE 4.2 MG/DL (0.55-1.30); PHOSPHORUS 3.7 MG/DL (2.5-4.9); POTASSIUM 4.2 MMOL/L (3.5-5.1); SODIUM 131 MMOL/L (136-145)
[2018-06-20] MEDS ORDERED: Levothyroxine 125mcg tab ORAL SCH (06:30)
[2018-06-20] MEDS ORDERED: Metoprolol 5mg/5ml Inj IVP ONE (07:00)
[2018-06-20] MEDS ORDERED: Amiodarone 900 MG in D5W 500ml 482 ML IV SCH (07:00)
--- NOTE | 2018-06-20 07:30 | Consultation ---
DATE OF CONSULTATION: 06/19/2018 CARDIOLOGY CONSULTATION REFERRING PHYSICIAN: Clay Dudley M.D. CONSULTING PHYSICIAN: Jorge Travis M.D. REASON FOR REFERRAL: Hypotension. HISTORY OF PRESENT ILLNESS: This is a 77-year-old female who is usually followed by Dr. Glaser who I have had a chance to talk with, phone number [phone], who provided most of the information. The patient's daughter at bedside. The patient usually lives with a flexo press operator. Her daughter is really not sure about what has been happening over the past recent days. She was directly admitted to Dr. Glaser. According to Dr. Glaser, she has had some fevers, congestion, and low blood pressure, was referred to the emergency room here at [facility] recently. She had an ablation of increased tachycardia at [facility] by Dr. Singh and has a history of cardiac catheterization, but her troponins which are usually around [address] Glaser, that is 1.0, chronically that elevated, went up to about 4. She had a cardiac catheterization that showed according to Dr. Glaser less than 50% LAD stenosis. She did not require any intervention. She has had problem with being very ill, mainly lot of arthritis, lot of problems with end-stage renal disease, and probably dialysis, is in and out of multiple hospitals according to Dr. Glaser recently, poor quality of life, but she has indicated that she wanted to continue receiving dialysis and the care that she is necessary to get. No other information is obtainable from the patient. She is on a mechanical ventilator and unable to provide information. According to her daughter, her flexo press operator is not available for me to communicate with. Nevertheless, on questioning, Dr. Glaser does indicate that the possibility of aspiration does exist. PAST MEDICAL HISTORY: Positive for diabetes mellitus, hemoglobin A1c of 5.8, chronic renal insufficiency, on dialysis, history of Charcot foot, history of sarcoidosis, depression, osteoarthritis of the left shoulder, gastric ulcer, anastomosis of post pyloric area, nonsteroidal induced bleeding ulcers, upper gastrointestinal bleeding, hypertension, pseudogout, secondary hyperparathyroidism, osteoarthritis, remote history of ARDS in 1999 after septic shock, thyroid cancer, breast cancer, gastroesophageal reflux disease, pneumonia, melanoma, pancreatitis, history of DIC with chronic pancreatitis, toxic shock syndrome, RTA, bronchiectasis on CT scan, on inhaler therapy, ALFONSO, deep venous thrombosis of the right leg, watermelon stomach in 2007 at [facility], hemarthrosis, crystal positive pseudogout, insomnia, dialysis associated, pelvic fracture, trochanteric fracture of the left, C. difficile colitis as mentioned, coronary artery disease with less than 50% LAD stenosis, supraventricular tachycardia. 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 Meza, AV fistula placement by , angioplasty in distal stenoses. Echocardiogram in December 2014, ejection fraction was normal; November 2017, normal ejection fraction of 70 to 75%, moderate aortic sclerosis. PET in November 2014 normal, fixed defect, ejection fraction 71%, November 2017 normal ejection fraction, normal perfusion. Carotid ultrasound showed 1 to 49% stenoses. MEDICATIONS: Creon, Flonase, Lipitor 20 mg, Nephro-Scarlet, Prolia, vitamin D2 50,000 a week, Wellbutrin XR 150 mg on a daily basis, aspirin 81 mg, hydralazine 25 mg twice daily, levothyroxine 125 two tablets by mouth daily, so that is 250 mcg daily, Megace 10 mL once a day, metoprolol 25 mg twice daily, and Renvela. ALLERGIES: Nonsteroidal, adult low-dose aspirin 81 milligrams, Lyrica, Levaquin, Cymbalta, and Lunesta. REVIEW OF SYSTEMS: Unable to obtain. PHYSICAL EXAMINATION: GENERAL: Shows to be elderly female, on a mechanical ventilator and minimally responsive. NECK: Supple. Good carotid upstroke. LUNGS: Clear to auscultation at this time anteriorly. CARDIAC: Regular rhythm. No heaves or thrills. ABDOMEN: Soft, nontender, and obese. Positive bowel sounds. EXTREMITIES: There is no edema. No clubbing or cyanosis. LABORATORY AND DIAGNOSTIC DATA: White count of 3, hemoglobin 8.3, and platelet count of 268. PH is 7.42, pCO2 38, pO2 65, and bicarbonate of 24. Her sodium is 137, potassium is 4.1, chloride 94, bicarbonate 25, BUN of 46, creatinine 3.9, glucose of 130, lactic acid level of 7.1 and subsequently 7.3, calcium is 10.1, troponin is 0.23, ProBNP of 18,499 with total protein of 6, albumin 2.4, and lipase of 23. Triglycerides are high at 100. INR 1.0 and PTT of 24. Urinalysis was 30 to 40 WBCs, of course this is a dialysis patient. I am unable to locate an EKG in the chart. Telemetry data shows short runs of supraventricular tachycardia with heart rates up to 150 beats per minute. EKG is located, shows normal sinus rhythm, nonspecific T-wave changes, low voltage QRS complexes. Chest x-ray was performed in the emergency room that showed right middle lung infiltrate, appears more infiltrative, less mass-like demonstrating air bronchograms, infiltrate in the left suprahilar region, possibly retrocardiac region, left pleural effusion developing. ASSESSMENT: 1. Severe sepsis. 2. Lactic acidosis. 3. End-stage renal disease, on hemodialysis. 4. Diabetes mellitus. 5. History of supraventricular tachycardia, status post ablation recently. 6. History of less than 50% LAD stenosis on the recent cardiac catheterization per report. 7. History of gastrointestinal bleed, secondary to nonsteroidals. 8. History of sarcoidosis according to the chart. 9. History of chronic pancreatitis. 10. History of deep venous thrombosis. 11. History of atrial fibrillation with inhaler use according to the chart. PLAN: Dr. Dudley, this patient was seen in cardiac consultation. The patient should be continued on vasopressor therapy. Lactic acidosis is unfortunately persistent on repeat testing. Intravenous antibiotics have already been administered. The patient is on a ventilator to help her with breathing status and oxygenation. Pressors should be continued, dopamine. The patient is on dopamine and norepinephrine as needed. Another agent can be added, although prognosis will be poor. She should have monitoring for the supraventricular tachycardia that may be arising as a result of her underlying disease process as well as stimulants from pressors. Cardiac enzymes will be checked as a matter of routine. However, she only had a 50% lesion on the prior cardiac catheterization. Recently, she had a history of supraventricular tachycardia, that was recently ablated. Echocardiogram will be ordered to evaluate systolic function, although most recently has apparently been okay in November 2017. Her prognosis at this point is guarded to poor depending on how she responds to the initial treatment of septic shock with supportive care. Fluid administration is limited because of her end-stage renal disease and her dialysis session is scheduled on Mondays, Wednesdays, and Fridays. Tomorrow will be next dialysis. Dr. Dudley, I will follow the patient along with you from a cardiac point of view. Jorge Travis M.D. DR: RENO JOB#: [id number] CC:
[2018-06-20] MEDS: Heparin 5000 units/ml inj SUBQ SCH (08:40)
[2018-06-20] MEDS ORDERED: Pantoprazole Inj IVP SCH (09:00)
[2018-06-20] MEDS: DOPamine 400mg/250ml 250 ML IV SCH (09:17)
[2018-06-20] MEDS ORDERED: Amikacin Rx to dose MISC PRN (10:00)
--- NOTE | 2018-06-20 10:05 | History and Physical ---
History of Present Illness General Date patient seen: Jun 20, 2018 Reason for Hospitalization: Altered Level of Consciousness Present Illness HPI 77 year old female with hx of ESRF on HD for two years, hypothyroid, brought in from home with [facility]. she was in respiratory failure in ER and needed to be intubated by ER physician. She was in septic shock and was started on Dopamine drip and transferred to ICU. She required second pressors in ICU. Currently she is obtunded and on two pressors. Allergies: Coded Allergies: ESZOPICLONE (Verified Allergy, Unknown, 11/11/17) LEVOFLOXACIN (Verified Allergy, Unknown, 11/11/17) NAPROXEN (Verified Allergy, Unknown, 11/11/17) NSAIDS (NON-STEROIDAL ANTI-INFLAMMA (Verified Allergy, Unknown, 11/11/17) PREGABALIN (Verified Allergy, Unknown, 11/11/17) UNABLE TO ASSESS (Unverified , 06/19/18) Medication History Scheduled Atorvastatin Calcium* (Atorvastatin Calcium*), 20 MG ORAL BEDTIME, (Reported) Bupropion Xl* (Bupropion Xl*), 150 MG ORAL Q24H, (Reported) Fluticasone Propionate (Flonase Allergy Relief), 2 PUFFS NS BEDTIME, (Reported) Irbesartan* (Avapro*), 300 MG ORAL DAILY, (Reported) Levothyroxine Sodium* (Levothyroxine Sodium*), 250 MCG ORAL DAILY, (Reported) Lipase/Protease/Amylase (Creon Dr 24,000 Units Capsule), 2 EACH PO TID, ( Reported) Megestrol Acetate (Megestrol Acetate), 400 MG PO DAILY, (Reported) Metoprolol Tartrate* (Metoprolol Tartrate*), 25 MG ORAL BID, (Reported) Pantoprazole* (Pantoprazole*), 40 MG ORAL DAILY, (Reported) Sevelamer Hcl (Renagel), 2,400 MG ORAL THREE TIMES A DAY, (Reported) Vit B1 Mn/B2/B3/B5/B6/B12/C/Fa (B Complex With Vitamin C Tab), 1 TAB ORAL DAILY, (Reported) Scheduled PRN Acetaminophen* (Tylenol Extra Strength*), 1,000 MG ORAL Q8HR PRN for For Pain, ( Reported) Acetaminophen* (Acetaminophen 325MG Tablet*), 325 MG ORAL Q6H PRN for Mild Pain/ Temp > 100.5, (Reported) Bisacodyl (Dulcolax), Unknown Dose RC every 3 days PRN for Constipation, ( Reported) Meclizine Hcl* (Meclizine*), 25 MG ORAL Q8H PRN for for dizziness, (Reported) Melatonin (Melatonin), 6 MG ORAL BEDTIME PRN for CIRCADIAN RHYTHM , (Reported) Ondansetron Odt* (Zofran Odt*), 8 MG ORAL Q6H PRN for Nausea & Vomiting, ( Reported) Polyethylene Glycol 3350* (Miralax*), 17 GM ORAL BID PRN for Constipation, ( Reported) Ranitidine Hcl* (Zantac*), 150 MG ORAL Q6HR PRN for For Pain, (Reported) Miscellaneous Medications Unable to Obtain Medications (Unable To Obtain Meds), (Reported) Patient History Healthcare decision maker Resuscitation status Full Code Advanced Directive on File Past Medical/Surgical History Past Medical/Surgical History: (1) ESRF (end stage renal failure) (2) Asthma (3) Depression (4) Hypothyroidism Review of Systems All Other Systems: negative except mentioned in HPI Physical Exam General Appearance: WD/WN Lines, tubes and drains: peripheral HEENT: normocephalic Neck: non-tender, normal alignment Respiratory/Chest: chest wall non-tender, lungs clear Cardiovascular/Chest: normal rate Abdomen: normal bowel sounds Genitourinary/Rectal: normal genital exam Extremities: normal range of motion, non-tender Last 24 Hour Vital Signs Date Time Temp Pulse Resp B/P (MAP) Pulse Ox O2 Delivery O2 Flow Rate FiO2 06/20/18 09:17 87/53 06/20/18 09:00 144 23 117/102 (107) 99 06/20/18 08:34 149 23 100 06/20/18 08:30 144 23 86/43 (57) 93 06/20/18 08:00 97.6 149 22 77/43 (54) 94 06/20/18 07:30 147 23 80/42 (55) 93 06/20/18 07:24 134 22 100 06/20/18 07:00 138 23 65/50 (55) 100 06/20/18 06:38 155 92/55 06/20/18 06:30 167 21 82/50 (61) 100 06/20/18 06:00 98.6 122 21 94/74 (81) 100 06/20/18 05:30 100.0 118 21 104/54 (71) 96 06/20/18 05:25 53/33 06/20/18 05:06 122 22 100 06/20/18 05:00 122 21 94/74 (81) 100 06/20/18 04:30 122 22 117/56 (76) 99 06/20/18 04:00 128 06/20/18 04:00 100 06/20/18 04:00 101.8 123 22 97/69 (78) 99 06/20/18 04:00 Mechanical Ventilator 06/20/18 03:30 124 22 93/50 (64) 99 06/20/18 03:04 119 24 100 06/20/18 03:00 103.1 126 27 96/43 (60) 99 06/20/18 02:53 103.1 06/20/18 02:30 103.0 121 28 97/46 (63) 100 06/20/18 02:00 118 28 101/48 (65) 98 06/20/18 01:30 125 26 112/72 (85) 97 06/20/18 01:11 126 26 100 06/20/18 01:00 125 23 88/65 (73) 98 06/20/18 00:30 125 23 110/53 (72) 98 06/20/18 00:04 97/49 06/20/18 00:00 122 23 104/52 (69) 95 06/20/18 00:00 Mechanical Ventilator 06/20/18 00:00 122 06/20/18 00:00 100 06/19/18 23:30 101.6 122 23 95/54 (68) 95 06/19/18 23:15 121 23 104/52 (69) 95 06/19/18 23:00 118 23 104/52 (69) 95 06/19/18 22:53 115 25 100 06/19/18 22:45 117 24 106/49 (68) 94 06/19/18 22:30 114 24 92/44 (60) 95 18 22:21 86/39 18 22:20 86/39 06/19/18 22:15 97 24 93/42 (59) 95 06/19/18 22:00 102.5 95 24 57/41 (46) 95 06/19/18 21:45 119 24 120/55 (76) 95 06/19/18 21:30 101.2 121 24 120/55 (76) 96 18 21:15 122 24 125/56 (79) 96 06/19/18 21:00 124 24 100 06/19/18 21:00 122 24 131/59 (83) 96 06/19/18 20:45 124 23 139/62 (87) 97 06/19/18 20:30 125 25 137/69 (91) 98 06/19/18 20:15 123 28 151/89 (109) 98 06/19/18 20:00 95 06/19/18 20:00 100 06/19/18 20:00 122 20 145/100 (115) 81 06/19/18 20:00 Mechanical Ventilator 06/19/18 19:45 119 20 110/40 (63) 81 06/19/18 19:34 73/46 06/19/18 19:30 114 19 139/57 (84) 87 06/19/18 19:22 106 28 100 06/19/18 19:15 98 35 75/41 (52) 89 06/19/18 19:00 99.8 99 33 80/41 (54) 85 06/19/18 18:45 90/56 06/19/18 18:33 100 06/19/18 18:28 Mechanical Ventilator 06/19/18 18:00 102 31 100 06/19/18 16:39 Mechanical Ventilator 06/19/18 16:16 97.9 98 22 90/56 97 Mechanical Ventilator 100 06/19/18 16:10 100.4 64 23 63/27 (39) 100 06/19/18 16:09 90/56 06/19/18 15:54 87/54 06/19/18 15:39 89/49 06/19/18 15:33 97.9 98 16 81/43 92 Mechanical Ventilator 100 06/19/18 15:15 92 35 Mechanical Ventilator 100 06/19/18 15:15 92 35 100 06/19/18 15:12 93 17 96/41 92 Mechanical Ventilator 100 06/19/18 14:00 98.0 86 24 78/54 92 Mechanical Ventilator 100 06/19/18 13:30 90 26 78/44 90 Mechanical Ventilator 100 06/19/18 13:22 95 18 100 06/19/18 13:21 100 06/19/18 12:58 88 27 80/44 67 Room Air 06/19/18 12:58 99 20 Room Air 06/19/18 12:48 99 20 80/44 86 Room Air Intake and Output 06/19/18 06/20/18 18:59 06:59 Intake Total 1293.7 ml 1190.036 ml Output Total 30 ml 2 ml Balance 1263.7 ml 1188.036 ml Intake IV Total 1293.7 ml 1190.036 ml Output Urine Total 30 ml 2 ml # Voids 1 # Bowel Movements 1 Laboratory Tests Test 06/19/18 13:30 06/19/18 13:50 06/19/18 14:14 06/19/18 14:28 White Blood Count 3.0 K/UL (4.8-10.8) L Red Blood Count 2.77 M/UL (4.20-5.40) L Hemoglobin 8.3 G/DL (12.0-16.0) L Hematocrit 26.9 % (37.0-47.0) L Mean Corpuscular Volume 97 FL (80-99) Mean Corpuscular Hemoglobin 30.0 PG (27.0-31.0) Mean Corpuscular Hemoglobin Concent 30.8 G/DL (32.0-36.0) L Red Cell Distribution Width 14.8 % (11.6-14.8) Platelet Count 268 K/UL (150-450) Mean Platelet Volume 8.4 FL (6.5-10.1) Neutrophils (%) (Auto) % (45.0-75.0) Lymphocytes (%) (Auto) % (20.0-45.0) Monocytes (%) (Auto) % (1.0-10.0) Eosinophils (%) (Auto) % (0.0-3.0) Basophils (%) (Auto) % (0.0-2.0) Differential Total Cells Counted 100 Neutrophils % (Manual) 55 % (45-75) Lymphocytes % (Manual) 11 % (20-45) L Monocytes % (Manual) 8 % (1-10) Eosinophils % (Manual) 0 % (0-3) Basophils % (Manual) 0 % (0-2) Band Neutrophils 26 % (0-8) H Platelet Estimate Adequate Platelet Morphology Normal Polychromasia 1+ Hypochromasia 1+ Anisocytosis 1+ Schistocytes 1+ Prothrombin Time 13.4 SEC (9.30-11.50) H Prothromb Time International Ratio 1.3 (0.9-1.1) H Activated Partial Thromboplast Time 24 SEC (23-33) Sodium Level 134 MMOL/L (136-145) L Potassium Level 4.1 MMOL/L (3.5-5.1) Chloride Level 94 MMOL/L (98-107) L Carbon Dioxide Level 25 MMOL/L (21-32) Anion Gap 15 mmol/L (5-15) Blood Urea Nitrogen 46 mg/dL (7-18) H Creatinine 3.9 MG/DL (0.55-1.30) H Estimat Glomerular Filtration Rate mL/min (>60) Glucose Level 130 MG/DL (74-106) H Lactic Acid Level 7.10 mmol/L (0.4-2.0) H 7.30 mmol/L (0.66-2.22) H Calcium Level 10.1 MG/DL (8.5-10.1) Total Bilirubin 0.6 MG/DL (0.2-1.0) Aspartate Amino Transf (AST/SGOT) 34 U/L (15-37) Alanine Aminotransferase (ALT/SGPT) 24 U/L (12-78) Alkaline Phosphatase 112 U/L (46-116) Total Creatine Kinase 53 U/L (26-308) Creatine Kinase MB 1.1 NG/ML (0.0-3.6) Creatine Kinase MB Relative Index 2.0 Troponin I 0.223 ng/mL (0.000-0.056) Pro-B-Type Natriuretic Peptide 81791 pg/mL (0-125) H Total Protein 6.0 G/DL (6.4-8.2) L Albumin 2.4 G/DL (3.4-5.0) L Globulin 3.6 g/dL Albumin/Globulin Ratio 0.7 (1.0-2.7) L Triglycerides Level 100 MG/DL (30-150) Lipase 23 U/L (73-393) L Urine Color Pale yellow Urine Appearance Slightly cloudy Urine pH 8 (4.5-8.0) Urine Specific [place] 1.010 (1.005-1.035) Urine Protein 4+ (NEGATIVE) H Urine Glucose (UA) Negative (NEGATIVE) Urine Ketones Negative (NEGATIVE) Urine Blood 2+ (NEGATIVE) H Urine Nitrite Negative (NEGATIVE) Urine Bilirubin Negative (NEGATIVE) Urine Urobilinogen Normal MG/DL (0.0-1.0) Urine Leukocyte Esterase 3+ (NEGATIVE) H Urine RBC 2-4 /HPF (0 - 2) H Urine WBC 30-40 /HPF (0 - 2) H Urine Squamous Epithelial Cells Few /LPF (NONE/OCC) Urine Bacteria Many /HPF (NONE) H Arterial Blood pH 7.425 (7.350-7.450) Arterial Blood Partial Pressure CO2 38.8 mmHg (35.0-45.0) Arterial Blood Partial Pressure O2 65.3 mmHg (75.0-100.0) L Arterial Blood HCO3 24.9 mmol/L (22.0-26.0) Arterial Blood Oxygen Saturation 91.3 % (95-100) L Arterial Blood Base Excess 0.5 (-2-2) Kamran Test Positive Test 06/19/18 14:40 06/19/18 21:25 06/19/18 22:39 06/19/18 22:50 Arterial Blood pH Pending 7.357 (7.350-7.450) Arterial Blood Partial Pressure CO2 Pending 34.3 mmHg (35.0-45.0) L Arterial Blood Partial Pressure O2 Pending 52.8 mmHg (75.0-100.0) L Arterial Blood HCO3 Pending 18.8 mmol/L (22.0-26.0) L Arterial Blood Oxygen Saturation Pending 83.3 % (95-100) *L Arterial Blood Base Excess Pending -5.9 (-2-2) L Kamran Test Pending Positive Lactic Acid Level 9.10 mmol/L (0.4-2.0) H 8.80 mmol/L (0.66-2.22) H Troponin I 0.906 ng/mL (0.000-0.056) Test 06/20/18 04:10 06/20/18 08:30 White Blood Count 9.7 K/UL (4.8-10.8) # Red Blood Count 3.41 M/UL (4.20-5.40) L Hemoglobin 10.8 G/DL (12.0-16.0) #L Hematocrit 33.3 % (37.0-47.0) L Mean Corpuscular Volume 98 FL (80-99) Mean Corpuscular Hemoglobin 31.8 PG (27.0-31.0) H Mean Corpuscular Hemoglobin Concent 32.6 G/DL (32.0-36.0) Red Cell Distribution Width 14.7 % (11.6-14.8) Platelet Count 254 K/UL (150-450) Mean Platelet Volume 8.0 FL (6.5-10.1) Neutrophils (%) (Auto) % (45.0-75.0) Lymphocytes (%) (Auto) % (20.0-45.0) Monocytes (%) (Auto) % (1.0-10.0) Eosinophils (%) (Auto) % (0.0-3.0) Basophils (%) (Auto) % (0.0-2.0) Sodium Level 131 MMOL/L (136-145) L Potassium Level 4.2 MMOL/L (3.5-5.1) Chloride Level 94 MMOL/L (98-107) L Carbon Dioxide Level 21 MMOL/L (21-32) Anion Gap 16 mmol/L (5-15) H Blood Urea Nitrogen 50 mg/dL (7-18) H Creatinine 4.2 MG/DL (0.55-1.30) H Estimat Glomerular Filtration Rate mL/min (>60) Glucose Level 74 MG/DL (74-106) Lactic Acid Level 6.10 mmol/L (0.4-2.0) H 8.80 mmol/L (0.66-2.22) H Calcium Level 9.9 MG/DL (8.5-10.1) Phosphorus Level 3.7 MG/DL (2.5-4.9) Troponin I 1.652 ng/mL (0.000-0.056) Albumin 2.3 G/DL (3.4-5.0) L Microbiology Date/Time Source Procedure Growth Status 06/19/18 13:50 Urine,Clean Catch Urine Culture - Preliminary Resulted 06/19/18 14:40 Rectum - Preliminary Resulted Height (Feet): 5 Height (Inches): 0.00 Weight (Pounds): 157 Medications Current Medications Medications (Trade) Dose Ordered Sig/Frances Route PRN Reason Start Time Stop Time Status Last Admin Dose Admin Acetaminophen (Tylenol) 650 mg Q4H PRN ORAL Fever (temp>100.5 F) 06/19/18 15:45 07/19/18 15:44 06/20/18 02:23 Albuterol/ Ipratropium (Albuterol/ Ipratropium) 3 ml Q4H PRN HHN Shortness of Breath 06/19/18 15:45 06/24/18 15:44 Amikacin Protocol (Amikacin pharmacy to dose) 1 ea DAILY PRN MISC Per rx protocol 06/20/18 10:00 07/20/18 09:59 UNV Amiodarone HCl 900 mg/Dextrose 500 ml @ 0 mls/hr Q24H IV 06/20/18 07:00 06/21/18 06:59 06/20/18 08:06 Chlorhexidine Gluconate (Bernie-Hex 2%) 1 applic DAILY@2000 TOPIC 06/20/18 20:00 07/20/18 19:59 Dextrose (Dextrose 50%) 25 ml Q30M PRN IV Hypoglycemia 06/19/18 16:00 07/19/18 15:50 Dextrose (Dextrose 50%) 50 ml Q30M PRN IV hypoglycemia 06/19/18 16:00 07/19/18 15:59 Dopamine HCl/ Dextrose 250 ml @ 0 mls/hr Q24H IV 06/19/18 18:45 07/19/18 18:44 06/20/18 09:17 Heparin Sodium (Porcine) (Heparin 5000 units/ml) 5,000 units EVERY 12 HOURS SUBQ 06/19/18 21:00 07/19/18 20:59 06/20/18 08:40 Levothyroxine Sodium (Synthroid) 250 mcg ACBREAKFAST ORAL 06/20/18 06:30 07/20/18 06:29 06/20/18 06:04 Lorazepam (Ativan 2mg/ml 1ml) 2 mg Q4H PRN IV For Anxiety 06/19/18 15:45 06/26/18 15:44 06/19/18 19:33 Meropenem 500 mg/ Sodium Chloride 55 ml @ 100 mls/hr Q24H IV 06/21/18 01:00 06/26/18 00:59 Morphine Sulfate (Morphine Sulfate) 4 mg Q4H PRN IVP For Pain 06/19/18 15:45 06/26/18 15:44 06/19/18 20:27 Norepinephrine Bitartrate 8 mg/ Dextrose 500 ml @ 0 mls/hr Q24H IV 06/19/18 23:00 07/19/18 22:59 06/20/18 05:25 Ondansetron HCl (Zofran) 4 mg Q6H PRN IVP Nausea & Vomiting 06/19/18 15:45 07/19/18 15:44 Pantoprazole (Protonix) 40 mg DAILY IVP 06/20/18 09:00 07/20/18 08:59 06/20/18 08:41 Sodium Chloride 1,000 ml @ 999 mls/hr Q1H1M ONCE IV 06/20/18 10:00 06/20/18 11:00 UNV Vancomycin HCl (Vanco rx to dose) 1 ea DAILY PRN MISC Per rx protocol 06/19/18 22:45 07/19/18 22:44 Assessment/Plan Problem List: (1) Septic shock ICD Codes: A41.9 - Sepsis, unspecified organism; R65.21 - Severe sepsis with septic shock SNOMED: 53965703 (2) Respiratory failure ICD Codes: J96.90 - Respiratory failure, unspecified, unspecified whether with hypoxia or hypercapnia SNOMED: 791687021 (3) ESRF (end stage renal failure) ICD Codes: N18.6 - End stage renal disease SNOMED: 51064522 (4) Hypothyroidism ICD Codes: E03.9 - Hypothyroidism, unspecified SNOMED: 34735661 (5) Acquired hypothyroidism ICD Codes: E03.9 - Hypothyroidism, unspecified SNOMED: 756487954 Respiratory: monitor respiratory rate, adjust FIO2, CXR Cardiac: continue pressors, continue to monitor HR/BP Renal: F/U I&O, keep IV fluid, increase IV fluid Infectious Disease: check cultures, continue antibiotics Gastrointestinal: hold feedings Hematologic: monitor H/H, transfuse if hgb<8.5 Neurologic: PRN Ativan, PRN Morphine, keep patient comfortable Affect: PRN ativan Prophylaxis: Protonix, Heparin Disposition: keep in ICU Notes Reviewed: cardio, renal Discussed with: nurses, consultants, dependency case manager Clay Dudley MD 14, 2018 10:05
--- NOTE | 2018-06-20 11:15 | Consultation ---
History of Present Illness General Date patient seen: Jun 20, 2018 Chief Complaint: Altered Level of Consciousness Present Illness HPI 77 y/o F with hx of Dm2, ESRD on HD via AVF, charcot foot, sarcoidosis, MDD, OA L shoulder, PUD, 2ry hyperparathyroidism, hx of septic shock and ARDS 1999, HTN , thyroid CA s/p thyroidectomy, breast CA s/p lumpectomy, GERD, PNA, melanoma, pancreatitis, pancreatic CA s/p whipple, L femoral neck fx s/p ORIF, ALFONSO, R DVT , pseudogout, insomnia, Cdiff colitis, CAD, SVT presents to ED on 06/19 with acute loss of consciousness, respiratory distress. Upon admission required intubation for respiratory failure; was also hypotensive and started on pressors and admitted to ICU. Of note, patient had recent admission to [facility] for ACS. and ablation for increased tachycardia. Had cardiac cath that showed <50% stenosis LAD, no intervention was done. Tm 103.1 Maxed on Levophed, dopamine added Allergies: Coded Allergies: ESZOPICLONE (Verified Allergy, Unknown, 11/11/17) LEVOFLOXACIN (Verified Allergy, Unknown, 11/11/17) NAPROXEN (Verified Allergy, Unknown, 11/11/17) NSAIDS (NON-STEROIDAL ANTI-INFLAMMA (Verified Allergy, Unknown, 11/11/17) PREGABALIN (Verified Allergy, Unknown, 11/11/17) UNABLE TO ASSESS (Unverified , 06/19/18) Medication History Scheduled Atorvastatin Calcium* (Atorvastatin Calcium*), 20 MG ORAL BEDTIME, (Reported) Bupropion Xl* (Bupropion Xl*), 150 MG ORAL Q24H, (Reported) Fluticasone Propionate (Flonase Allergy Relief), 2 PUFFS NS BEDTIME, (Reported) Irbesartan* (Avapro*), 300 MG ORAL DAILY, (Reported) Levothyroxine Sodium* (Levothyroxine Sodium*), 250 MCG ORAL DAILY, (Reported) Lipase/Protease/Amylase (Creon Dr 24,000 Units Capsule), 2 EACH PO TID, ( Reported) Megestrol Acetate (Megestrol Acetate), 400 MG PO DAILY, (Reported) Metoprolol Tartrate* (Metoprolol Tartrate*), 25 MG ORAL BID, (Reported) Pantoprazole* (Pantoprazole*), 40 MG ORAL DAILY, (Reported) Sevelamer Hcl (Renagel), 2,400 MG ORAL THREE TIMES A DAY, (Reported) Vit B1 Mn/B2/B3/B5/B6/B12/C/Fa (B Complex With Vitamin C Tab), 1 TAB ORAL DAILY, (Reported) Scheduled PRN Acetaminophen* (Tylenol Extra Strength*), 1,000 MG ORAL Q8HR PRN for For Pain, ( Reported) Acetaminophen* (Acetaminophen 325MG Tablet*), 325 MG ORAL Q6H PRN for Mild Pain/ Temp > 100.5, (Reported) Bisacodyl (Dulcolax), Unknown Dose RC every 3 days PRN for Constipation, ( Reported) Meclizine Hcl* (Meclizine*), 25 MG ORAL Q8H PRN for for dizziness, (Reported) Melatonin (Melatonin), 6 MG ORAL BEDTIME PRN for CIRCADIAN RHYTHM , (Reported) Ondansetron Odt* (Zofran Odt*), 8 MG ORAL Q6H PRN for Nausea & Vomiting, ( Reported) Polyethylene Glycol 3350* (Miralax*), 17 GM ORAL BID PRN for Constipation, ( Reported) Ranitidine Hcl* (Zantac*), 150 MG ORAL Q6HR PRN for For Pain, (Reported) Miscellaneous Medications Unable to Obtain Medications (Unable To Obtain Meds), (Reported) Patient History Healthcare decision maker Resuscitation status Full Code Advanced Directive on File Patient History Narrative Pmhx: as above Shx: reviewed Fhx: non contributory Review of Systems ROS Narrative unable to obtain Physical Exam Physical Exam Narrative GENERAL: Shows to be elderly female, on a mechanical ventilator and minimally responsive. NECK: Supple. Good carotid upstroke. LUNGS: Clear to auscultation at this time anteriorly. CARDIAC: Regular rhythm. No heaves or thrills. ABDOMEN: Soft, nontender, and obese. Positive bowel sounds. EXTREMITIES: There is no edema. No clubbing or cyanosis. Last 24 Hour Vital Signs Date Time Temp Pulse Resp B/P (MAP) Pulse Ox O2 Delivery O2 Flow Rate FiO2 06/20/18 10:37 126 23 100 06/20/18 10:03 88/58 06/20/18 09:17 87/53 06/20/18 09:00 144 23 117/102 (107) 99 06/20/18 08:34 149 23 100 06/20/18 08:30 144 23 86/43 (57) 93 06/20/18 08:00 100 06/20/18 08:00 97.6 149 22 77/43 (54) 94 06/20/18 08:00 Mechanical Ventilator 06/20/18 07:30 147 23 80/42 (55) 93 06/20/18 07:24 134 22 100 06/20/18 07:00 138 23 65/50 (55) 100 06/20/18 06:38 155 92/55 06/20/18 06:30 167 21 82/50 (61) 100 06/20/18 06:00 98.6 122 21 94/74 (81) 100 06/20/18 05:30 100.0 118 21 104/54 (71) 96 06/20/18 05:25 53/33 06/20/18 05:06 122 22 100 06/20/18 05:00 122 21 94/74 (81) 100 06/20/18 04:30 122 22 117/56 (76) 99 06/20/18 04:00 128 06/20/18 04:00 100 06/20/18 04:00 101.8 123 22 97/69 (78) 99 06/20/18 04:00 Mechanical Ventilator 06/20/18 03:30 124 22 93/50 (64) 99 06/20/18 03:04 119 24 100 06/20/18 03:00 103.1 126 27 96/43 (60) 99 06/20/18 02:53 103.1 06/20/18 02:30 103.0 121 28 97/46 (63) 100 06/20/18 02:00 118 28 101/48 (65) 98 06/20/18 01:30 125 26 112/72 (85) 97 06/20/18 01:11 126 26 100 06/20/18 01:00 125 23 88/65 (73) 98 06/20/18 00:30 125 23 110/53 (72) 98 06/20/18 00:04 97/49 06/20/18 00:00 122 23 104/52 (69) 95 06/20/18 00:00 Mechanical Ventilator 06/20/18 00:00 122 06/20/18 00:00 100 12/13/18 23:30 101.6 122 23 95/54 (68) 95 06/19/18 23:15 121 23 104/52 (69) 95 06/19/18 23:00 118 23 104/52 (69) 95 06/19/18 22:53 115 25 100 06/19/18 22:45 117 24 106/49 (68) 94 06/19/18 22:30 114 24 92/44 (60) 95 06/19/18 22:21 86/39 06/19/18 22:20 86/39 06/19/18 22:15 97 24 93/42 (59) 95 06/19/18 22:00 102.5 95 24 57/41 (46) 95 06/19/18 21:45 119 24 120/55 (76) 95 06/19/18 21:30 101.2 121 24 120/55 (76) 96 06/19/18 21:15 122 24 125/56 (79) 96 06/19/18 21:00 124 24 100 06/19/18 21:00 122 24 131/59 (83) 96 06/19/18 20:45 124 23 139/62 (87) 97 06/19/18 20:30 125 25 137/69 (91) 98 06/19/18 20:15 123 28 151/89 (109) 98 06/19/18 20:00 95 06/19/18 20:00 100 06/19/18 20:00 122 20 145/100 (115) 81 06/19/18 20:00 Mechanical Ventilator 06/19/18 19:45 119 20 110/40 (63) 81 06/19/18 19:34 73/46 06/19/18 19:30 114 19 139/57 (84) 87 06/19/18 19:22 106 28 100 06/19/18 19:15 98 35 75/41 (52) 89 06/19/18 19:00 99.8 99 33 80/41 (54) 85 18 18:45 90/56 06/19/18 18:33 100 06/19/18 18:28 Mechanical Ventilator 06/19/18 18:00 102 31 100 06/19/18 16:39 Mechanical Ventilator 06/19/18 16:16 97.9 98 22 90/56 97 Mechanical Ventilator 100 12/13/18 16:10 100.4 64 23 63/27 (39) 100 06/19/18 16:09 90/56 06/19/18 15:54 87/54 06/19/18 15:39 89/49 06/19/18 15:33 97.9 98 16 81/43 92 Mechanical Ventilator 100 06/19/18 15:15 92 35 Mechanical Ventilator 100 06/19/18 15:15 92 35 100 06/19/18 15:12 93 17 96/41 92 Mechanical Ventilator 100 06/19/18 14:00 98.0 86 24 78/54 92 Mechanical Ventilator 100 06/19/18 13:30 90 26 78/44 90 Mechanical Ventilator 100 06/19/18 13:22 95 18 100 06/19/18 13:21 100 06/19/18 12:58 88 27 80/44 67 Room Air 06/19/18 12:58 99 20 Room Air 06/19/18 12:48 99 20 80/44 86 Room Air Intake and Output 06/19/18 06/20/18 19:00 07:00 Intake Total 1293.7 ml 1335.875 ml Output Total 32 ml 0 ml Balance 1261.7 ml 1335.875 ml Intake IV Total 1293.7 ml 1335.875 ml Output Urine Total 32 ml 0 ml # Voids 1 # Bowel Movements 1 Laboratory Tests Test 06/19/18 13:30 06/19/18 13:50 06/19/18 14:14 06/19/18 14:28 White Blood Count 3.0 K/UL (4.8-10.8) L Red Blood Count 2.77 M/UL (4.20-5.40) L Hemoglobin 8.3 G/DL (12.0-16.0) L Hematocrit 26.9 % (37.0-47.0) L Mean Corpuscular Volume 97 FL (80-99) Mean Corpuscular Hemoglobin 30.0 PG (27.0-31.0) Mean Corpuscular Hemoglobin Concent 30.8 G/DL (32.0-36.0) L Red Cell Distribution Width 14.8 % (11.6-14.8) Platelet Count 268 K/UL (150-450) Mean Platelet Volume 8.4 FL (6.5-10.1) Neutrophils (%) (Auto) % (45.0-75.0) Lymphocytes (%) (Auto) % (20.0-45.0) Monocytes (%) (Auto) % (1.0-10.0) Eosinophils (%) (Auto) % (0.0-3.0) Basophils (%) (Auto) % (0.0-2.0) Differential Total Cells Counted 100 Neutrophils % (Manual) 55 % (45-75) Lymphocytes % (Manual) 11 % (20-45) L Monocytes % (Manual) 8 % (1-10) Eosinophils % (Manual) 0 % (0-3) Basophils % (Manual) 0 % (0-2) Band Neutrophils 26 % (0-8) H Platelet Estimate Adequate Platelet Morphology Normal Polychromasia 1+ Hypochromasia 1+ Anisocytosis 1+ Schistocytes 1+ Prothrombin Time 13.4 SEC (9.30-11.50) H Prothromb Time International Ratio 1.3 (0.9-1.1) H Activated Partial Thromboplast Time 24 SEC (23-33) Sodium Level 134 MMOL/L (136-145) L Potassium Level 4.1 MMOL/L (3.5-5.1) Chloride Level 94 MMOL/L (98-107) L Carbon Dioxide Level 25 MMOL/L (21-32) Anion Gap 15 mmol/L (5-15) Blood Urea Nitrogen 46 mg/dL (7-18) H Creatinine 3.9 MG/DL (0.55-1.30) H Estimat Glomerular Filtration Rate mL/min (>60) Glucose Level 130 MG/DL (74-106) H Lactic Acid Level 7.10 mmol/L (0.4-2.0) H 7.30 mmol/L (0.66-2.22) H Calcium Level 10.1 MG/DL (8.5-10.1) Total Bilirubin 0.6 MG/DL (0.2-1.0) Aspartate Amino Transf (AST/SGOT) 34 U/L (15-37) Alanine Aminotransferase (ALT/SGPT) 24 U/L (12-78) Alkaline Phosphatase 112 U/L (46-116) Total Creatine Kinase 53 U/L (26-308) Creatine Kinase MB 1.1 NG/ML (0.0-3.6) Creatine Kinase MB Relative Index 2.0 Troponin I 0.223 ng/mL (0.000-0.056) Pro-B-Type Natriuretic Peptide 72716 pg/mL (0-125) H Total Protein 6.0 G/DL (6.4-8.2) L Albumin 2.4 G/DL (3.4-5.0) L Globulin 3.6 g/dL Albumin/Globulin Ratio 0.7 (1.0-2.7) L Triglycerides Level 100 MG/DL (30-150) Lipase 23 U/L (73-393) L Urine Color Pale yellow Urine Appearance Slightly cloudy Urine pH 8 (4.5-8.0) Urine Specific Graham 1.010 (1.005-1.035) Urine Protein 4+ (NEGATIVE) H Urine Glucose (UA) Negative (NEGATIVE) Urine Ketones Negative (NEGATIVE) Urine Blood 2+ (NEGATIVE) H Urine Nitrite Negative (NEGATIVE) Urine Bilirubin Negative (NEGATIVE) Urine Urobilinogen Normal MG/DL (0.0-1.0) Urine Leukocyte Esterase 3+ (NEGATIVE) H Urine RBC 2-4 /HPF (0 - 2) H Urine WBC 30-40 /HPF (0 - 2) H Urine Squamous Epithelial Cells Few /LPF (NONE/OCC) Urine Bacteria Many /HPF (NONE) H Arterial Blood pH 7.425 (7.350-7.450) Arterial Blood Partial Pressure CO2 38.8 mmHg (35.0-45.0) Arterial Blood Partial Pressure O2 65.3 mmHg (75.0-100.0) L Arterial Blood HCO3 24.9 mmol/L (22.0-26.0) Arterial Blood Oxygen Saturation 91.3 % (95-100) L Arterial Blood Base Excess 0.5 (-2-2) Kamran Test Positive Test 06/19/18 14:40 06/19/18 21:25 06/19/18 22:39 06/19/18 22:50 Arterial Blood pH Pending 7.357 (7.350-7.450) Arterial Blood Partial Pressure CO2 Pending 34.3 mmHg (35.0-45.0) L Arterial Blood Partial Pressure O2 Pending 52.8 mmHg (75.0-100.0) L Arterial Blood HCO3 Pending 18.8 mmol/L (22.0-26.0) L Arterial Blood Oxygen Saturation Pending 83.3 % (95-100) *L Arterial Blood Base Excess Pending -5.9 (-2-2) L Kamran Test Pending Positive Lactic Acid Level 9.10 mmol/L (0.4-2.0) H 8.80 mmol/L (0.66-2.22) H Troponin I 0.906 ng/mL (0.000-0.056) Test 06/20/18 04:10 06/20/18 08:30 White Blood Count 9.7 K/UL (4.8-10.8) # Red Blood Count 3.41 M/UL (4.20-5.40) L Hemoglobin 10.8 G/DL (12.0-16.0) #L Hematocrit 33.3 % (37.0-47.0) L Mean Corpuscular Volume 98 FL (80-99) Mean Corpuscular Hemoglobin 31.8 PG (27.0-31.0) H Mean Corpuscular Hemoglobin Concent 32.6 G/DL (32.0-36.0) Red Cell Distribution Width 14.7 % (11.6-14.8) Platelet Count 254 K/UL (150-450) Mean Platelet Volume 8.0 FL (6.5-10.1) Neutrophils (%) (Auto) % (45.0-75.0) Lymphocytes (%) (Auto) % (20.0-45.0) Monocytes (%) (Auto) % (1.0-10.0) Eosinophils (%) (Auto) % (0.0-3.0) Basophils (%) (Auto) % (0.0-2.0) Sodium Level 131 MMOL/L (136-145) L Potassium Level 4.2 MMOL/L (3.5-5.1) Chloride Level 94 MMOL/L (98-107) L Carbon Dioxide Level 21 MMOL/L (21-32) Anion Gap 16 mmol/L (5-15) H Blood Urea Nitrogen 50 mg/dL (7-18) H Creatinine 4.2 MG/DL (0.55-1.30) H Estimat Glomerular Filtration Rate mL/min (>60) Glucose Level 74 MG/DL (74-106) Lactic Acid Level 6.10 mmol/L (0.4-2.0) H 8.80 mmol/L (0.66-2.22) H Calcium Level 9.9 MG/DL (8.5-10.1) Phosphorus Level 3.7 MG/DL (2.5-4.9) Troponin I 1.652 ng/mL (0.000-0.056) Albumin 2.3 G/DL (3.4-5.0) L Microbiology Date/Time Source Procedure Growth Status 06/19/18 13:50 Urine,Clean Catch Urine Culture - Preliminary Resulted 06/19/18 14:40 Rectum - Preliminary Resulted Height (Feet): 5 Height (Inches): 0.00 Weight (Pounds): 157 Medications Current Medications Medications (Trade) Dose Ordered Sig/Frances Route PRN Reason Start Time Stop Time Status Last Admin Dose Admin Acetaminophen (Tylenol) 650 mg Q4H PRN ORAL Fever (temp>100.5 F) 06/19/18 15:45 07/19/18 15:44 06/20/18 02:23 Albuterol/ Ipratropium (Albuterol/ Ipratropium) 3 ml Q4H PRN HHN Shortness of Breath 06/19/18 15:45 06/24/18 15:44 Amikacin Protocol (Amikacin pharmacy to dose) 1 ea DAILY PRN MISC Per rx protocol 06/20/18 10:00 07/20/18 09:59 Amiodarone HCl 900 mg/Dextrose 500 ml @ 0 mls/hr Q24H IV 06/20/18 07:00 06/21/18 06:59 06/20/18 08:06 Chlorhexidine Gluconate (Bernie-Hex 2%) 1 applic DAILY@2000 TOPIC 06/20/18 20:00 07/20/18 19:59 Dextrose (Dextrose 50%) 25 ml Q30M PRN IV Hypoglycemia 06/19/18 16:00 07/19/18 15:50 Dextrose (Dextrose 50%) 50 ml Q30M PRN IV hypoglycemia 06/19/18 16:00 07/19/18 15:59 Dopamine HCl/ Dextrose 250 ml @ 0 mls/hr Q24H IV 06/19/18 18:45 07/19/18 18:44 06/20/18 09:17 Heparin Sodium (Porcine) (Heparin 5000 units/ml) 5,000 units EVERY 12 HOURS SUBQ 06/19/18 21:00 07/19/18 20:59 06/20/18 08:40 Hydrocortisone (Solu-CORTEF) 100 mg EVERY 8 HOURS IV 06/20/18 14:00 07/20/18 13:59 Levothyroxine Sodium (Synthroid) 250 mcg ACBREAKFAST ORAL 06/20/18 06:30 07/20/18 06:29 06/20/18 06:04 Lorazepam (Ativan 2mg/ml 1ml) 2 mg Q4H PRN IV For Anxiety 06/19/18 15:45 06/26/18 15:44 06/19/18 19:33 Meropenem 500 mg/ Sodium Chloride 55 ml @ 100 mls/hr Q24H IV 06/21/18 01:00 06/26/18 00:59 Morphine Sulfate (Morphine Sulfate) 4 mg Q4H PRN IVP For Pain 06/19/18 15:45 06/26/18 15:44 06/19/18 20:27 Norepinephrine Bitartrate 8 mg/ Dextrose 500 ml @ 0 mls/hr Q24H IV 06/19/18 23:00 07/19/18 22:59 06/20/18 10:03 Ondansetron HCl (Zofran) 4 mg Q6H PRN IVP Nausea & Vomiting 06/19/18 15:45 07/19/18 15:44 Pantoprazole (Protonix) 40 mg DAILY IVP 06/20/18 09:00 07/20/18 08:59 06/20/18 08:41 Sodium Chloride 1,000 ml @ 999 mls/hr Q1H1M ONCE IV 06/20/18 10:00 06/20/18 11:00 06/20/18 10:02 Sodium Chloride 1,000 ml @ 999 mls/hr Q1H1M ONCE IV 06/20/18 10:30 06/20/18 11:30 Vancomycin HCl (Vanco rx to dose) 1 ea DAILY PRN MISC Per rx protocol 06/19/18 22:45 07/19/18 22:44 Assessment/Plan Assessment/Plan Abx: IV Vancomycin 06/19- ZOsyn x1 06/19 Meropenem 06/20- Amikacin 06/20- Assessment: Septic Shock- 2ry to PNA, probable UTI- r/o bacteremia, r/o Influenza -CXR: Large area of dense consolidation in the right mid to lower lung are most likely pneumonia. Although appearance is somewhat masslike, mass as etiology of this finding is much less likely given absence of such on the previous study of 5 weeks earlier, although possible. Cardiomegaly -u/a wbc 30-40, nit neg, leuk +3; ucx p Fever Leukopenia, SP Acute respiratory failure s/p intubation Lactic acidosis Dm2 ESRD on HD via AVF charcot foot sarcoidosis MDD OA L shoulder PUD 2ry hyperparathyroidism hx of septic shock and ARDS 1999 HTN thyroid CA s/p thyroidectomy breast CA s/p lumpectomy GERD hx of PNA hx of melanoma hx of pancreatitis pancreatic CA s/p whipple L femoral neck fx s/p ORIF ALFONSO R DVT pseudogout insomnia hx of Cdiff colitis CAD -s/p recent cath: <50% LAD stenosis SVT -s/p recent ablation @ [facility] Plan: -Continue empiric IV Vancomycin #2, Meropenem #1 (abx d#2), Amikacin #1 pending cultures -Add empiric Azithromycin and Tamiflu for atypicals and influenza coverage, respectively -legionella ag urine, EKG (monitor QTc), Influenza sc -f/u cx -Monitor CBC/CMP, temperatures -ETT/ICU care -Aspiration precuations -Pulm, Nephro f/u Thank you for this consultation. Will continue to follow along with you. Discussed with Meghna Fournier M.D. Jun 20, 2018 11:14
[2018-06-20] MEDS ORDERED: Morphine Sulfate 2mg/ml Inj IVP SCH (11:59)
[2018-06-20] MEDS ORDERED: Glycopyrrolate 0.2mg/ml 1ml Vial IV PRN (12:00)
[2018-06-20] MEDS ORDERED: Haloperidol 5mg/ml Inj IM PRN (12:00)
[2018-06-20] MEDS ORDERED: Phenylephrine 50 MG in D5W 245 ML IV SCH (12:00)
[2018-06-20] MEDS ORDERED: Azithromycin 500 MG in D5W 275 ML IV SCH (12:00)
[2018-06-20] MEDS ORDERED: Artificial Tears 1.4% Op Soln BOTH EYES PRN (12:00)
[2018-06-20] MEDS ORDERED: Prochlorperazine 10mg tab ORAL PRN (12:00)
[2018-06-20] MEDS ORDERED: Morphine Sulfate 10mg/ml Inj IVP SCH (12:03)
[2018-06-20] MEDS ORDERED: PCA Morphine 1mg/ml 30 ML IV PRN (12:10)
[2018-06-20] MEDS ORDERED: Rate Change Narcotic Drip MISC PRN (12:15)
--- NOTE | 2018-06-20 12:42 | Consultation ---
History of Present Illness General Chief Complaint: Altered Level of Consciousness Present Illness HPI 77 y/o F with hx of Dm2, ESRD on HD via AVF, Charcot foot, sarcoidosis, anxiety MDD, OA L shoulder, PUD, 2ry hyperparathyroidism, hx of septic shock . the pt was on antidepressants and was on welbutrin. the pt is unable to provide hx. the pt is not agitated and is lethargic Allergies: Coded Allergies: ESZOPICLONE (Verified Allergy, Unknown, 11/11/17) LEVOFLOXACIN (Verified Allergy, Unknown, 11/11/17) NAPROXEN (Verified Allergy, Unknown, 11/11/17) NSAIDS (NON-STEROIDAL ANTI-INFLAMMA (Verified Allergy, Unknown, 11/11/17) PREGABALIN (Verified Allergy, Unknown, 11/11/17) UNABLE TO ASSESS (Unverified , 06/19/18) Medication History Scheduled Atorvastatin Calcium* (Atorvastatin Calcium*), 20 MG ORAL BEDTIME, (Reported) Bupropion Xl* (Bupropion Xl*), 150 MG ORAL Q24H, (Reported) Fluticasone Propionate (Flonase Allergy Relief), 2 PUFFS NS BEDTIME, (Reported) Irbesartan* (Avapro*), 300 MG ORAL DAILY, (Reported) Levothyroxine Sodium* (Levothyroxine Sodium*), 250 MCG ORAL DAILY, (Reported) Lipase/Protease/Amylase (Creon Dr 24,000 Units Capsule), 2 EACH PO TID, ( Reported) Megestrol Acetate (Megestrol Acetate), 400 MG PO DAILY, (Reported) Metoprolol Tartrate* (Metoprolol Tartrate*), 25 MG ORAL BID, (Reported) Pantoprazole* (Pantoprazole*), 40 MG ORAL DAILY, (Reported) Sevelamer Hcl (Renagel), 2,400 MG ORAL THREE TIMES A DAY, (Reported) Vit B1 Mn/B2/B3/B5/B6/B12/C/Fa (B Complex With Vitamin C Tab), 1 TAB ORAL DAILY, (Reported) Scheduled PRN Acetaminophen* (Tylenol Extra Strength*), 1,000 MG ORAL Q8HR PRN for For Pain, ( Reported) Acetaminophen* (Acetaminophen 325MG Tablet*), 325 MG ORAL Q6H PRN for Mild Pain/ Temp > 100.5, (Reported) Bisacodyl (Dulcolax), Unknown Dose RC every 3 days PRN for Constipation, ( Reported) Meclizine Hcl* (Meclizine*), 25 MG ORAL Q8H PRN for for dizziness, (Reported) Melatonin (Melatonin), 6 MG ORAL BEDTIME PRN for CIRCADIAN RHYTHM , (Reported) Ondansetron Odt* (Zofran Odt*), 8 MG ORAL Q6H PRN for Nausea & Vomiting, ( Reported) Polyethylene Glycol 3350* (Miralax*), 17 GM ORAL BID PRN for Constipation, ( Reported) Ranitidine Hcl* (Zantac*), 150 MG ORAL Q6HR PRN for For Pain, (Reported) Miscellaneous Medications Unable to Obtain Medications (Unable To Obtain Meds), (Reported) Patient History Limited by: medical condition History Provided By: Patient, Medical Record Healthcare decision maker Resuscitation status Full Code Advanced Directive on File Past Medical/Surgical History Past Medical/Surgical History: (1) Costochondritis (2) ACS (acute coronary syndrome) (3) Encephalopathy (4) Respiratory failure (5) Hypothyroidism (6) Septic shock (7) Depression (8) Asthma (9) Atrial fibrillation with rapid ventricular response (10) Acquired hypothyroidism (11) ESRF (end stage renal failure) Review of Systems Psychiatric: Reports: prior hx, anxiety, depressed feelings Physical Exam General Appearance: no apparent distress, lethargic Last 24 Hour Vital Signs Date Time Temp Pulse Resp B/P (MAP) Pulse Ox O2 Delivery O2 Flow Rate FiO2 06/20/18 12:00 Mechanical Ventilator 06/20/18 11:00 128 27 64/45 (51) 94 06/20/18 10:37 126 23 100 06/20/18 10:30 130 25 72/57 (62) 94 06/20/18 10:03 88/58 06/20/18 10:00 129 26 72/43 (53) 94 06/20/18 09:30 141 23 82/38 (53) 94 06/20/18 09:17 87/53 06/20/18 09:15 144 23 87/53 (64) 94 06/20/18 09:00 144 23 117/102 (107) 99 06/20/18 09:00 143 23 86/43 (57) 93 06/20/18 08:45 143 23 86/43 (57) 93 06/20/18 08:34 149 23 100 06/20/18 08:30 147 23 100/36 (57) 95 06/20/18 08:15 148 22 103/60 (74) 93 06/20/18 08:00 100 06/20/18 08:00 97.6 149 22 77/43 (54) 94 06/20/18 08:00 Mechanical Ventilator 06/20/18 08:00 128 06/20/18 07:30 147 23 80/42 (55) 93 06/20/18 07:24 134 22 100 06/20/18 07:00 138 23 65/50 (55) 100 06/20/18 06:38 155 92/55 06/20/18 06:30 167 21 82/50 (61) 100 06/20/18 06:00 98.6 122 21 94/74 (81) 100 06/20/18 05:30 100.0 118 21 104/54 (71) 96 06/20/18 05:25 53/33 06/20/18 05:06 122 22 100 06/20/18 05:00 122 21 94/74 (81) 100 06/20/18 04:30 122 22 117/56 (76) 99 06/20/18 04:00 128 06/20/18 04:00 100 06/20/18 04:00 101.8 123 22 97/69 (78) 99 06/20/18 04:00 Mechanical Ventilator 06/20/18 03:30 124 22 93/50 (64) 99 06/20/18 03:04 119 24 100 06/20/18 03:00 103.1 126 27 96/43 (60) 99 06/20/18 02:53 103.1 06/20/18 02:30 103.0 121 28 97/46 (63) 100 06/20/18 02:00 118 28 101/48 (65) 98 06/20/18 01:30 125 26 112/72 (85) 97 06/20/18 01:11 126 26 100 06/20/18 01:00 125 23 88/65 (73) 98 06/20/18 00:30 125 23 110/53 (72) 98 06/20/18 00:04 97/49 06/20/18 00:00 122 23 104/52 (69) 95 06/20/18 00:00 Mechanical Ventilator 06/20/18 00:00 122 06/20/18 00:00 100 06/19/18 23:30 101.6 122 23 95/54 (68) 95 06/19/18 23:15 121 23 104/52 (69) 95 06/19/18 23:00 118 23 104/52 (69) 95 06/19/18 22:53 115 25 100 06/19/18 22:45 117 24 106/49 (68) 94 06/19/18 22:30 114 24 92/44 (60) 95 06/19/18 22:21 86/39 06/19/18 22:20 86/39 06/19/18 22:15 97 24 93/42 (59) 95 06/19/18 22:00 102.5 95 24 57/41 (46) 95 06/19/18 21:45 119 24 120/55 (76) 95 06/19/18 21:30 101.2 121 24 120/55 (76) 96 06/19/18 21:15 122 24 125/56 (79) 96 06/19/18 21:00 124 24 100 06/19/18 21:00 122 24 131/59 (83) 96 06/19/18 20:45 124 23 139/62 (87) 97 06/19/18 20:30 125 25 137/69 (91) 98 06/19/18 20:15 123 28 151/89 (109) 98 06/19/18 20:00 95 06/19/18 20:00 100 06/19/18 20:00 122 20 145/100 (115) 81 06/19/18 20:00 Mechanical Ventilator 06/19/18 19:45 119 20 110/40 (63) 81 06/19/18 19:34 73/46 06/19/18 19:30 114 19 139/57 (84) 87 06/19/18 19:22 106 28 100 06/19/18 19:15 98 35 75/41 (52) 89 06/19/18 19:00 99.8 99 33 80/41 (54) 85 06/19/18 18:45 90/56 06/19/18 18:33 100 06/19/18 18:28 Mechanical Ventilator 06/19/18 18:00 102 31 100 12/13/18 16:39 Mechanical Ventilator 06/19/18 16:16 97.9 98 22 90/56 97 Mechanical Ventilator 100 06/19/18 16:10 100.4 64 23 63/27 (39) 100 06/19/18 16:09 90/56 06/19/18 15:54 87/54 06/19/18 15:39 89/49 06/19/18 15:33 97.9 98 16 81/43 92 Mechanical Ventilator 100 06/19/18 15:15 92 35 Mechanical Ventilator 100 06/19/18 15:15 92 35 100 06/19/18 15:12 93 17 96/41 92 Mechanical Ventilator 100 06/19/18 14:00 98.0 86 24 78/54 92 Mechanical Ventilator 100 06/19/18 13:30 90 26 78/44 90 Mechanical Ventilator 100 06/19/18 13:22 95 18 100 06/19/18 13:21 100 06/19/18 12:58 88 27 80/44 67 Room Air 06/19/18 12:58 99 20 Room Air 06/19/18 12:48 99 20 80/44 86 Room Air Intake and Output 06/19/18 06/20/18 19:00 07:00 Intake Total 1293.7 ml 1335.875 ml Output Total 32 ml 0 ml Balance 1261.7 ml 1335.875 ml Intake IV Total 1293.7 ml 1335.875 ml Output Urine Total 32 ml 0 ml # Voids 1 # Bowel Movements 1 Laboratory Tests Test 06/19/18 13:30 06/19/18 13:50 06/19/18 14:14 06/19/18 14:28 White Blood Count 3.0 K/UL (4.8-10.8) L Red Blood Count 2.77 M/UL (4.20-5.40) L Hemoglobin 8.3 G/DL (12.0-16.0) L Hematocrit 26.9 % (37.0-47.0) L Mean Corpuscular Volume 97 FL (80-99) Mean Corpuscular Hemoglobin 30.0 PG (27.0-31.0) Mean Corpuscular Hemoglobin Concent 30.8 G/DL (32.0-36.0) L Red Cell Distribution Width 14.8 % (11.6-14.8) Platelet Count 268 K/UL (150-450) Mean Platelet Volume 8.4 FL (6.5-10.1) Neutrophils (%) (Auto) % (45.0-75.0) Lymphocytes (%) (Auto) % (20.0-45.0) Monocytes (%) (Auto) % (1.0-10.0) Eosinophils (%) (Auto) % (0.0-3.0) Basophils (%) (Auto) % (0.0-2.0) Differential Total Cells Counted 100 Neutrophils % (Manual) 55 % (45-75) Lymphocytes % (Manual) 11 % (20-45) L Monocytes % (Manual) 8 % (1-10) Eosinophils % (Manual) 0 % (0-3) Basophils % (Manual) 0 % (0-2) Band Neutrophils 26 % (0-8) H Platelet Estimate Adequate Platelet Morphology Normal Polychromasia 1+ Hypochromasia 1+ Anisocytosis 1+ Schistocytes 1+ Prothrombin Time 13.4 SEC (9.30-11.50) H Prothromb Time International Ratio 1.3 (0.9-1.1) H Activated Partial Thromboplast Time 24 SEC (23-33) Sodium Level 134 MMOL/L (136-145) L Potassium Level 4.1 MMOL/L (3.5-5.1) Chloride Level 94 MMOL/L (98-107) L Carbon Dioxide Level 25 MMOL/L (21-32) Anion Gap 15 mmol/L (5-15) Blood Urea Nitrogen 46 mg/dL (7-18) H Creatinine 3.9 MG/DL (0.55-1.30) H Estimat Glomerular Filtration Rate mL/min (>60) Glucose Level 130 MG/DL (74-106) H Lactic Acid Level 7.10 mmol/L (0.4-2.0) H 7.30 mmol/L (0.66-2.22) H Calcium Level 10.1 MG/DL (8.5-10.1) Total Bilirubin 0.6 MG/DL (0.2-1.0) Aspartate Amino Transf (AST/SGOT) 34 U/L (15-37) Alanine Aminotransferase (ALT/SGPT) 24 U/L (12-78) Alkaline Phosphatase 112 U/L (46-116) Total Creatine Kinase 53 U/L (26-308) Creatine Kinase MB 1.1 NG/ML (0.0-3.6) Creatine Kinase MB Relative Index 2.0 Troponin I 0.223 ng/mL (0.000-0.056) Pro-B-Type Natriuretic Peptide 05497 pg/mL (0-125) H Total Protein 6.0 G/DL (6.4-8.2) L Albumin 2.4 G/DL (3.4-5.0) L Globulin 3.6 g/dL Albumin/Globulin Ratio 0.7 (1.0-2.7) L Triglycerides Level 100 MG/DL (30-150) Lipase 23 U/L (73-393) L Urine Color Pale yellow Urine Appearance Slightly cloudy Urine pH 8 (4.5-8.0) Urine Specific [place] 1.010 (1.005-1.035) Urine Protein 4+ (NEGATIVE) H Urine Glucose (UA) Negative (NEGATIVE) Urine Ketones Negative (NEGATIVE) Urine Blood 2+ (NEGATIVE) H Urine Nitrite Negative (NEGATIVE) Urine Bilirubin Negative (NEGATIVE) Urine Urobilinogen Normal MG/DL (0.0-1.0) Urine Leukocyte Esterase 3+ (NEGATIVE) H Urine RBC 2-4 /HPF (0 - 2) H Urine WBC 30-40 /HPF (0 - 2) H Urine Squamous Epithelial Cells Few /LPF (NONE/OCC) Urine Bacteria Many /HPF (NONE) H Arterial Blood pH 7.425 (7.350-7.450) Arterial Blood Partial Pressure CO2 38.8 mmHg (35.0-45.0) Arterial Blood Partial Pressure O2 65.3 mmHg (75.0-100.0) L Arterial Blood HCO3 24.9 mmol/L (22.0-26.0) Arterial Blood Oxygen Saturation 91.3 % (95-100) L Arterial Blood Base Excess 0.5 (-2-2) Kamran Test Positive Test 06/19/18 14:40 06/19/18 21:25 06/19/18 22:39 06/19/18 22:50 Arterial Blood pH Pending 7.357 (7.350-7.450) Arterial Blood Partial Pressure CO2 Pending 34.3 mmHg (35.0-45.0) L Arterial Blood Partial Pressure O2 Pending 52.8 mmHg (75.0-100.0) L Arterial Blood HCO3 Pending 18.8 mmol/L (22.0-26.0) L Arterial Blood Oxygen Saturation Pending 83.3 % (95-100) *L Arterial Blood Base Excess Pending -5.9 (-2-2) L Kamran Test Pending Positive Lactic Acid Level 9.10 mmol/L (0.4-2.0) H 8.80 mmol/L (0.66-2.22) H Troponin I 0.906 ng/mL (0.000-0.056) Test 06/20/18 04:10 06/20/18 08:30 White Blood Count 9.7 K/UL (4.8-10.8) # Red Blood Count 3.41 M/UL (4.20-5.40) L Hemoglobin 10.8 G/DL (12.0-16.0) #L Hematocrit 33.3 % (37.0-47.0) L Mean Corpuscular Volume 98 FL (80-99) Mean Corpuscular Hemoglobin 31.8 PG (27.0-31.0) H Mean Corpuscular Hemoglobin Concent 32.6 G/DL (32.0-36.0) Red Cell Distribution Width 14.7 % (11.6-14.8) Platelet Count 254 K/UL (150-450) Mean Platelet Volume 8.0 FL (6.5-10.1) Neutrophils (%) (Auto) % (45.0-75.0) Lymphocytes (%) (Auto) % (20.0-45.0) Monocytes (%) (Auto) % (1.0-10.0) Eosinophils (%) (Auto) % (0.0-3.0) Basophils (%) (Auto) % (0.0-2.0) Sodium Level 131 MMOL/L (136-145) L Potassium Level 4.2 MMOL/L (3.5-5.1) Chloride Level 94 MMOL/L (98-107) L Carbon Dioxide Level 21 MMOL/L (21-32) Anion Gap 16 mmol/L (5-15) H Blood Urea Nitrogen 50 mg/dL (7-18) H Creatinine 4.2 MG/DL (0.55-1.30) H Estimat Glomerular Filtration Rate mL/min (>60) Glucose Level 74 MG/DL (74-106) Lactic Acid Level 6.10 mmol/L (0.4-2.0) H 8.80 mmol/L (0.66-2.22) H Calcium Level 9.9 MG/DL (8.5-10.1) Phosphorus Level 3.7 MG/DL (2.5-4.9) Troponin I 1.652 ng/mL (0.000-0.056) Albumin 2.3 G/DL (3.4-5.0) L Microbiology Date/Time Source Procedure Growth Status 06/19/18 13:50 Urine,Clean Catch Urine Culture - Preliminary Resulted 06/19/18 14:40 Rectum - Preliminary Resulted Height (Feet): 5 Height (Inches): 0.00 Weight (Pounds): 157 Medications Current Medications Medications (Trade) Dose Ordered Sig/Frances Route PRN Reason Start Time Stop Time Status Last Admin Dose Admin Artificial Tears (Akwa-Tears) 1 drop QIDPRN PRN BOTH EYES Dry Eyes 06/20/18 12:00 07/20/18 11:59 Chlorhexidine Gluconate (Bernie-Hex 2%) 1 applic DAILY@1999 TOPIC 06/20/18 20:00 07/20/18 19:59 Glycopyrrolate (Robinul) 0.1 mg Q6H PRN IV excessive secretions 06/20/18 12:00 07/20/18 11:59 Haloperidol Lactate (Haldol) 1 mg Q30M PRN IM Agitation 06/20/18 12:00 07/20/18 11:59 Miscellaneous Medication (Narcotic Drip Rate Change) 1 ea DAILY PRN [facility] 06/20/18 12:15 07/20/18 12:14 Miscellaneous Medication (Narcotic Shift Volume) 1 ea Q8HR@07,15,[facility] 06/20/18 15:00 07/20/18 14:59 Morphine Sulfate 30 ml @ 5 mls/hr [employer] Protocol PRN IV For Pain 06/20/18 12:10 06/22/18 12:09 Morphine Sulfate (Morphine Sulfate) 10 mg ONCE IVP 06/20/18 11:59 06/20/18 12:59 06/20/18 12:08 Morphine Sulfate (Morphine Sulfate) 10 mg ONCE IVP 06/20/18 12:03 06/20/18 13:03 Prochlorperazine (Compazine) 10 mg Q6H PRN ORAL Nausea & Vomiting 06/20/18 12:00 07/20/18 11:59 Assessment/Plan Problem List: (1) Depression ICD Codes: F32.9 - Major depressive disorder, single episode, unspecified SNOMED: 28455203 (2) Encephalopathy ICD Codes: G93.40 - Encephalopathy, unspecified SNOMED: 45428478 Status: unchanged Assessment/Plan dc Wellbutrin Seroquel Rachelle Owen MD Jun 20, 2018 12:42
--- NOTE | 2018-06-20 13:48 | Diagnostic Imaging Report ---
Indication: Dyspnea Comparison: 06/19/2018 A single view chest radiograph was obtained. Findings: Masslike consolidative opacity in the right midlung again demonstrated with air bronchograms. More confluent central airspace disease in the left perihilar and basilar region of the lung also noted. Tubes and lines remain in satisfactory. Overall disease burden within the lungs appears relatively stable. IMPRESSION: No significant change from the prior day
[2018-06-20] MEDS ORDERED: NS IV SCH (14:00)
[2018-06-20] MEDS ORDERED: AMIKACIN IV SCH (14:00)
[2018-06-20] MEDS ORDERED: Hydrocortisone 100mg Inj IV SCH (14:00)
--- NOTE | 2018-06-20 14:22 | Consultation ---
Consult Note Consult Note Asked to eval patient at the request of Dr gonzalez for dialysis management patient seen in ICU , Hypotensive, on Vent non historian Patient persist by paramedics in acute distress during failure upon initial evaluation patient is minimally responsive to physical stimuli Audible crackles and tachypneic with accessory muscle use Hypoxic On rapid evaluation of previous history patient appears to have been at this hospital recently with ACS Currently attempting to obtain further history regarding this acute presentation Patient apparently did receive dialysis yesterday I'm not able to obtain any history from the patient herself History of present illness remains significantly limited Upon attempt of placing central line patient has dressings on bilateral groin region indicative of possible recent intervention/study Coded Allergies: ESZOPICLONE (Verified Allergy, Unknown, 11/11/17) LEVOFLOXACIN (Verified Allergy, Unknown, 11/11/17) NAPROXEN (Verified Allergy, Unknown, 11/11/17) NSAIDS (NON-STEROIDAL ANTI-INFLAMMA (Verified Allergy, Unknown, 11/11/17) PREGABALIN (Verified Allergy, Unknown, 11/11/17) Past Medical History: No History, Except For Hx Hypertension: Yes - hypothyroid,othrostatic hypotension Hx Diabetes: Yes - neoplasm of pancreas, DM type II Hx Dialysis: Yes - glomerulopathy, stage 5 kidney disease interviewed examined data reviewed discussed with RN examined discussed with RN . Assessment/Plan Acute Respiratory failure- On Vent Hypotensive, septic shock ESRD on HD has permacath HypoThyroidism PUD Atrial Fib h/o Bilateral Breat Ca . s/p Chemo and radiation cardiac ischemia Pressors- fluid Optimize hemodynamics no candidate for HD now. antibiotics consultants note renewed Brendan Jessica MD Jun 20, 2018 14:22
[2018-06-20] MEDS ORDERED: Narcotic Shift Volume MISC SCH (15:00)
--- NOTE | 2018-06-20 15:58 | Cardiology Report ---
APPROVED REPORT EKG Measurement Heart [id number] Sinus tachycardia with premature atrial complexes Low voltage QRS Borderline ECG
[2018-06-20] MEDS ORDERED: Dyna-Hex 2% Top Sol 2oz TOPIC SCH (20:00)
--- NOTE | 2018-06-21 | Consultation ---
DATE OF CONSULTATION: CRITICAL CARE CARDIOLOGY NOTE REASON FOR EVALUATION AND MANAGEMENT: Hypotension and atrial fibrillation with rapid ventricular response. I have been in contact with the nursing staff overnight and even early today and several times in the morning and early afternoon. The patient has hypotension, being on two different pressors. The patient did develop atrial fibrillation with rapid ventricular response. A dose of metoprolol was ordered by myself, 2.5 mg that did help, but only temporarily, and the patient was having problems with tolerating the medication because of the hypotension. Vasopressors were administered. The patient's blood pressure did drop at times according to the staff down into the 70s but she was fully awake and responsive. She remained on the ventilator. I did discuss the case with the nursing staff and pharmacy staff to provide the patient with amiodarone to be administered intravenously to see if heart rate can be controlled. Eventually, that medication became available in the pharmacy and was administered. On repeat checking by myself that I had been doing on several occasions, the patient's heart rate had improved; however, not converted to normal yet. She has had problems with blood pressure, subsequently with readings in the 50s to 60s. Despite that, the patient's laboratories that were checked, white count of 9.7, hemoglobin 10.8, and platelet count of 254,000. Blood gases from last night showed pH of 7.35, pCO2 of 34, pO2 of 53, bicarbonate of 18, and she had 83.3% saturation. Sodium was 131 today, potassium 4.2, chloride 94, bicarbonate of 50, creatinine of 4.2, and glucose of 74. Her lactic acid had been approximately 8, but had been hovering between 6 and subsequently again 8.8. Her cardiac enzymes, with a troponin of 1.6. As I recall discussion with her primary care physician, her troponins are chronically in the 1 range according to them, certainly possibility of demand ischemia on top of coronary artery disease of less than 50% by history certainly could be correlated; however, the patient remains septic and on pressors. Recommendation for starting of Sd-Synephrine was given to the nursing staff. I was, however, notified sometime later that the patient's family members and the primary care physician who had been following the patient had arrived in the hospital at the request of the family members after they had a discussion with the primary care physician, who has been providing to them. The patient's family decided to withdraw care and made her DNR as I understand talking with the staff before they could even terminally extubate the patient as the plan was apparently that the patient was given some morphine to keep her comfortable and she became and she apparently subsequently . I have been in contact with the staff on several occasions today providing this Critical Care Cardiology consultation. Jorge Travis M.D. DR: CYRUS JOB#: [id number] CC:
[2018-06-21] MEDS ORDERED: Meropenem 500 MG in NS 55 ML IV SCH (01:00)
--- NOTE | 2018-06-23 10:22 | Discharge Summary ---
Discharge Summary Discharge Summary _ SUMMARY DATE OF ADMISSION: 06/19/2018 DATE OF EXPIRATION: 06/20/2018 REASON FOR ADMISSION: 77 years old female with past medical history of end-stage renal disease ,on hemodialysis for 2 years, history of septic shock and ARDS in 1999, history of thyroid cancer, status post thyroidectomy, history of breast cancer, status post lumpectomy, history of pancreatic cancer ,status post Whipple procedure, sarcoidosis, melanoma, diabetes mellitus type 2, , history of DVT, history of SVT ,status post recent ablation, anemia, presented from home with altered level of consciousness. Patient was found to be septic and hypotensive. Central line was placed in anticipation for pressors. Patient was nonresponsive and showed severe respiratory distress with audible rales and retraction as well as a hypoxemia. Patient required emergency oral intubation Laboratory workup revealed leukopenia with WBC 3.0 ,hemoglobin 8.3 ,hematocrit 26.9. ABG on 100% of FiO2 after intubation revealed PO2 91%.. Chest X-ray confirmed placement of endotracheal tube and revealed evidence of bilateral infiltrates. Lactic acid - 7.1. BUN 46, creatinine 3.9, consistent with known history of end-stage renal disease. Troponin elevated 0.2-3. Pro BNP 22387. Albumin 2.4. Urinalysis revealed +4 protein, pyuria and many bacteria. Patient was pancultured and started on empiric antibiotics. Boluses of hydration provided without blood pressure response. Patient subsequently was started on dopamine drip. Patient admitted to ICU for further management CONSULTANTS: phone circuit operator Dr. Travis ID specialist Dr. Trejo glass selector Dr. Jessica psychiatrist [facility]SE: Patient admitted to ICU. Patient was on Levophed and dopamine , titrated to keep mean arterial pressure above 65%. Ventilator support provided. Patient started on broad spectrum antibiotics. Repeated ABG in the morning of 06/20 revealed severe hypoxemia with FiO2 of 100 % oxygen saturation was only 83%. Follow-up chest x-ray on 06/20 revealed masslike consolidation opacity in the right midlung More confluent central airspace disease in the left perihilar and basilar region of the lung also noted. Tubes and lines remained satisfactory. Highway Engineering Technician followed. Serial troponin were elevated. Patient had a prior recent cardiac catheterization which showed less than 50% of the LAD stenosis. According to primary care physician, patient's troponin were chronically slightly elevate,d troponin in the 1 range. Per phone circuit operator, certainly possibility of demand ischemia on top of coronary artery disease. Patient also had a history of supraventricular tachycardia , status post recent ablation. Echocardiogram revealed preserved ejection fraction of 55-60%. No evidence of wall motion abnormality. Moderate left ventricular hypertrophy. Echogenic material was noted in the posterior mitral valve. Patient subsequently developed atrial fibrillation with rapid ventricular response . Patient had a history of atrial fibrillation in the past with use of bronchodilators. Patient started on amiodarone drip . According to phone circuit operator prognosis was guarded , given no response to initial treatment of septic shock. Patient was on empiric antibiotics per ID specialist recommendations for UTI and pneumonia. Patient also started empirically on Tamiflu. Influenza screen test was ordered . At the time of this dictation results of cultures available and revealed: blood culture positive for Strep pneumonia. Urine culture positive for strep viridans. Grain Combine Driver followed. Patient was not a candidate for hemodialysis , given septic shock. Renal parameters and electrolytes were closely monitored. Blood pressure was still not responding to vasopressors. Patient remained septic, in shock and hypoxemic. After conversation with primary care physician and attending physician at the hospital , family decided to withdraw care and change code status to DNR/DNI. Code status was changed to DNR 06/20 . Unfortunately, patient' s condition deteriorated rapidly. Patient became asystole and subsequently . Patient was pronounced at 12: 14 on 06/20. Cause of : cardiopulmonary arrest FINAL DIAGNOSES Septic shock acute respiratory failure requiring intubation Severe sepsis with Strep pneumonia bacteremia most lipoyl due to pneumonia Pneumonia Strep viridans UTI Atrial fibrillation with rapid ventricular response Lactic acidosis End-stage renal disease, on hemodialysis Encephalopathy , likely due to sepsis Abnormal cardiac enzymes, possibly demand ischemia Diabetes mellitus type 2 Sarcoidosis History of supraventricular tachycardia, status post recent ablation History of less than 50% LAD stenosis on the recent cardiac catheterization ( per report) History of gastrointestinal bleed, secondary to NSAIDs History of deep venous thrombosis History of pancreatic CA , status post Whipple procedure Chronic pancreatitis History of thyroid cancer , status post thyroidectomy Hypothyroidism History of breast cancer, status post lumpectomy History of melanoma Depression I have been assigned to dictate discharge summary for this account. I was not involved in the patient's management. Gaby Calix NP Jun 23, 2018 10:22
== END 2018-06-20 12:15 | disposition expired | DRG 871 ==
LOC: EDBD 12:52 → EDBEDREQ 13:14 → EMR 14:01 → ICU 14:05 → EDBEDREQ 14:13
PROC: 5A1935Z Respiratory Ventilation, Less than 24 Consecutive Hours (ICD-10-PCS; principal; 2018-06-19)
PROC: 0BH17EZ Insertion of Endotracheal Airway into Trachea, Via Natural or Artificial Opening (ICD-10-PCS; principal; 2018-06-19)
DX: A40.3 Sepsis due to Streptococcus pneumoniae (principal); R65.21 Severe sepsis with septic shock; J18.9 Pneumonia, unspecified organism; J96.00 Acute respiratory failure, unspecified whether with hypoxia or hypercapnia; N18.6 End stage renal disease; G93.41 Metabolic encephalopathy; N39.0 Urinary tract infection, site not specified; I24.8 Other forms of acute ischemic heart disease; I13.11 Hypertensive heart and chronic kidney disease without heart failure, with stage 5 chronic kidney disease, or end stage renal disease; B95.4 Other streptococcus as the cause of diseases classified elsewhere; I48.91 Unspecified atrial fibrillation; E11.22 Type 2 diabetes mellitus with diabetic chronic kidney disease; Z99.2 Dependence on renal dialysis; D86.9 Sarcoidosis, unspecified; Z86.718 Personal history of other venous thrombosis and embolism; Z85.850 Personal history of malignant neoplasm of thyroid; Z85.07 Personal history of malignant neoplasm of pancreas; E03.9 Hypothyroidism, unspecified; Z85.3 Personal history of malignant neoplasm of breast; Z85.820 Personal history of malignant melanoma of skin; F32.9 Major depressive disorder, single episode, unspecified; Z88.6 Allergy status to analgesic agent; Z88.1 Allergy status to other antibiotic agents; Z88.8 Allergy status to other drugs, medicaments and biological substances; E11.610 Type 2 diabetes mellitus with diabetic neuropathic arthropathy; Z66 Do not resuscitate
CPT/HCPCS: 31500; 36415; 36600; 71045; 80048; 80053; 80069; 81003; 82550; 82553; 82803; 83605; 83690; 83880; 84478; 84484; 85007; 85025; 85610; 85730; 86140; 87040; 87081; 87086; 93005; 93306; 93970; 94002; 94003; 94664; 96361; 96365; 96368; 99291; J2370